=== PATIENT | male | born 1930 | race African-American/Black ===

== ENCOUNTER 2018-10-07 14:02 | Inpatient (IN) | payer OTHER ==
[~2018-10-07] VITALS: Ht 180.3 cm; Wt 91.0 kg
[2018-10-07 14:10] VITALS: Ht 180.3 cm; Wt 91.0 kg
--- NOTE | 2018-10-07 14:14 | ERD ---
ER Documentation Chief Complaint Chief Complaint low o2 saturation HPI The patient is a 88-year-old male, presenting to the ER because of low O2 saturation an hour prior to arrival and altered level of consciousness. 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 Past medical history: History of cardiac arrest, chronic respite failure, history of CHF, history of pressure ulcer, hypertension, dysphagia, bullous pemphigoid, gout, history of prostate cancer and bladder cancer. Past surgical history: Tracheostomy, G-tube ROS All systems reviewed and are negative except as per history of present illness. Medications Home Meds Reported Medications Levalbuterol Hcl* (Levalbuterol Hcl*) 0.63 Mg/3 Ml Vial.neb, 0.63 MG INHALATION QID PRN for WHEEZING AND SOB, VIAL 10/07/18 Acetaminophen* (Tylenol*) 325 Mg Tablet, 650 MG GTB Q6H PRN for MILD PAIN LEVEL 1-3, TAB FOR TEMP>100.5 10/07/18 Terazosin Hcl* (Terazosin Hcl*) 2 Mg Capsule, 2 MG GTB HS, CAP 10/07/18 Tamsulosin Hcl* (Tamsulosin Hcl*) 0.4 Mg Cap.er.24h, 0.4 MG GTB DAILY, CAP 10/07/18 Sennosides* (Senna Lax*) 8.6 Mg Tablet, 1 TAB GTB QHS, TAB 10/07/18 Hydrocodone/Acetaminophen ([place] 5-325 Tablet) 1 Each Tablet, 1 EACH GTB Q6H, TAB 10/07/18 [Nephro Vitamins ] No Conflict Check, 1 TAB GTB DAILY 10/07/18 Mirtazapine* (Mirtazapine*) 7.5 Mg Tablet, 7.5 MG GTB HS, TAB 10/07/18 Magnesium Hydroxide* (Milk Of Magnesia*) 400 Mg/5 Ml Oral.susp, 30 ML GTB Q24H for CONSTIPATION, ML 10/07/18 Metoprolol Tartrate* (Lopressor*) 25 Mg Tab, 25 MG GTB BID, #60 TAB HOLD FOR SBP<110 OR PULSE<60 10/07/18 Hydralazine Hcl* (Hydralazine Hcl*) 25 Mg Tab, 25 MG GTB Q8, #90 TAB HOLD FOR SBP<110 OR PULSE<60 10/07/18 Hydralazine Hcl* (Hydralazine Hcl*) 10 Mg Tablet, 10 MG GTB Q8 for FOR HTN FOR SBP<159, #90 TAB 10/07/18 Mineral Oil (Fleet Mineral Oil Enema) 133 Ml Enema, 133 ML RC Q 3 DAYS, ENEMA 10/07/18 Epoetin Hemant (Epogen) 10,000 Units/Ml Soln, 52220 UNITS SC Q MON,WED,FRI, VIAL 10/07/18 Bisacodyl* (Bisacodyl*) 10 Mg Supp, 10 MG FL Q24H for CONSTIPATION, SUPP 10/07/18 Docusate Sodium* (Colace*) 100 Mg Capsule, 100 MG GTB BID, #60 CAP 10/07/18 Allopurinol* (Allopurinol*) 300 Mg Tablet, 300 MG GTB DAILY, TAB 10/07/18 Alendronate Sodium* (Fosamax*) 70 Mg Tablet, 70 MG GTB Q SUN, #4 TAB 10/07/18 Acetaminophen* (Acetaminophen*) 325 Mg Tablet, 650 MG GTB DAILY PRN for PAIN AND OR ELEVATED TEMP, #30 TAB 30 MINS BEFORE TREATMENT. 10/07/18 Allergies Allergies: Uncoded Allergies: SHELLFISH (Allergy, Unknown, 10/07/18) Physical Exam Vitals Vital Signs Date Temp Pulse Resp B/P (MAP) Pulse Ox O2 O2 Flow FiO2 Time Delivery Rate 10/07/18 97.5 80 16 96/72 (80) Mechanical 10.0 17:59 Ventilator 10/07/18 81 17 12/75 (54) 100 Mechanical 16:59 Ventilator 10/07/18 82 15 100 100 16:49 10/07/18 87 16 103/70 100 Mechanical 15:35 (81) Ventilator Trach Collar 10/07/18 80 16 97/73 (81) 100 Mechanical 15:12 Ventilator 10/07/18 78 16 75/51 (59) 100 Mechanical 14:42 Ventilator 10/07/18 53 18 98 100 14:30 10/07/18 78 20 51/39 (43) 100 14:10 Physical Exam Const: Moderate acute distress. Head: Atraumatic. Eyes: Normal Conjunctiva. ENT: Normal External Ears, Nose and Mouth. Neck: Full range of motion. No meningismus. Tracheostomy Resp: Clear to auscultation anterior and laterally Cardio: Regular rate and rhythm. Abd: Soft, non distended, normal bowel sounds, non tender.GTube Skin: No petechiae or rashes. Back: No midline or flank tenderness. Ext: No cyanosis, or edema. Neur: Unable to perform due to his condition Psych: Unable to perform due to his condition Result Diagram: 10/07/18 1432 10/07/18 1432 Results 24 hrs Laboratory Tests Test 10/07/18 14:32 10/07/18 16:10 10/07/18 16:36 10/07/18 18:00 White Blood 9.2 10^3/ul Count Red Blood Count 2.72 10^6/ul Hemoglobin 7.2 g/dl Hematocrit 25.9 % Mean 95.2 fl Corpuscular Volume Mean 26.5 pg Corpuscular Hemoglobin Mean 27.8 g/dl Corpuscular Hemoglobin Conc ent Red Cell 17.4 % Distribution Width Platelet Count 114 10^3/UL Mean Platelet 13.0 fl Volume Immature 0.700 % Granulocytes % Neutrophils % 79.5 % Lymphocytes % 11.8 % Monocytes % 7.7 % Eosinophils % 0.1 % Basophils % 0.2 % Nucleated Red 3.3 /100WBC Blood Cells % Immature 0.060 10^3/ul Granulocytes # Neutrophils # 7.3 10^3/ul Lymphocytes # 1.1 10^3/ul Monocytes # 0.7 10^3/ul Eosinophils # 0.0 10^3/ul Basophils # 0.0 10^3/ul Nucleated Red 0.3 10^3/ul Blood Cells # Prothrombin 17.6 Sec Time Prothrombin 1.4 Time Ratio INR 1.44 International Normalized Rati o Activated 42.9 Sec Partial Thrombo plast Time Sodium Level 145 mmol/L Potassium Level 4.8 mmol/L Chloride Level 102 mmol/L Carbon Dioxide 32 mmol/L Level Anion Gap 11 Blood Urea 84 mg/dl Nitrogen Creatinine 1.46 mg/dl Est Glomerular mL/min Filtrat Rate mL/min Glucose Level 81 mg/dl Lactic Acid 6.6 mmol/L 3.6 mmol/L Level Calcium Level 9.5 mg/dl Total Bilirubin 0.2 mg/dl Direct 0.00 mg/dl Bilirubin Indirect 0.2 mg/dl Bilirubin Aspartate Amino 78 IU/L Transf (AST/SGO T) Alanine 30 IU/L Aminotransferas e (ALT/SGPT) Alkaline 137 IU/L Phosphatase Troponin I 0.251 ng/ml Total Protein 7.4 g/dl Albumin 3.2 g/dl Globulin 4.20 g/dl Albumin/Globuli 0.76 n Ratio Urine Color BHAVANA Urine Clarity SLIGHTLY CLOUDY Urine pH 5.0 Urine Specific 1.014 [place] Urine Ketones NEGATIVE mg/dL Urine Nitrite NEGATIVE mg/dL Urine Bilirubin NEGATIVE mg/dL Urine 1+ mg/dL Urobilinogen Urine Leukocyte 1+ Julissa/ul Esterase Urine 9 /HPF Microscopic RBC Urine 14 /HPF Microscopic WBC Urine Squamous FEW /HPF Epithelial Cell s Urine Bacteria FEW /HPF Urine Mucus FEW /HPF Urine Yeast MANY /HPF (Budding) Urine NEGATIVE mg/dL Hemoglobin Urine Glucose NEGATIVE mg/dL Urine Total 1+ mg/dl Protein Blood Gas Blood arterial Specimen Source Arterial Blood 10/07/2018 3:30: Date Drawn 05 PM Arterial Blood 7.340 pH (Temp corrected ) Arterial Blood 59.0 mmhg pCO2 (Temp correct) Arterial Blood 69.6 mmHG pO2 (Temp corrected ) Arterial Blood 31.1 mmol/L HCO3 Arterial Blood 4.5 mmol/L Base Excess Arterial Blood 91.8 mmHG Oxygen Saturati on Rosendo Test ACCEPTAB Arterial Blood Left Radial Gas Puncture Site Arterial 0.5 % Blood Carboxyhe moglobin Arterial Blood 0.4 % Methemoglobin Blood Gas A-a 584.4 mmHg O2 Differential Oxyhemoglobin 91.0 % Percent Blood Gas 37.0 C Temperature Blood Gas 12.0 Respiration Rate Blood Gas 18 Actual Respiration Rat e Blood Gas VENT - AC Modality FiO2 100.0 % Blood Gas Tidal 500.0 mL Volume Blood Gas High 5.0 cmH2O PEEP Setting Blood Gas DR Alesia WINKLER Critical Value Read Back Blood Gas T [facility] Notified Whom Blood Gas 10/07/2018 3:39: Notified Time 41 PM Current Medications Medications Dose Sig/Olga Start Time Status Last (Trade) Ordered Route PRN Stop Time Admin Dose Reason Admin 250 ml @ TITRATE IV 10/07/18 DC Norepinephrin 1.875 mls/ 15:00 e hr 10/07/18 15:00 250 ml @ TITRATE IV 10/07/18 10/07/18 Norepinephrin 1.875 mls/ 15:00 14:45 e hr Epinephrine 1 mg ONCE ONCE 10/07/18 DC 10/07/18 IV 16:00 16:00 10/07/18 16:18 Piperacillin 50 ml @ ONCE ONCE 10/07/18 DC 10/07/18 Sod/ 100 mls/hr IVPB 16:18 16:37 Tazobactam 10/07/18 16:47 Sod Vancomycin 250 ml @ ONCE ONCE 10/07/18 DC 10/07/18 HCl 125 mls/hr IVPB 16:00 17:35 10/07/18 17:59 Aspirin 162 mg ONCE ONCE 10/07/18 DC (Aspirin) GTB 18:30 10/07/18 18:31 IV Flush 3 ml PER 10/07/18 UNV (NS 3 ml) PROTOCOL IV 18:30 Ondansetron 4 mg Q6H PRN 10/07/18 UNV HCl (Zofran IV 18:30 Inj) NAUSEA/VOMITI NG 650 mg Q6H PRN 10/07/18 UNV Acetaminophen PO .PAIN 1-3 18:30 (Tylenol OR TEMP Tab) 1 tab Q6H PRN 10/07/18 UNV Acetaminophen PO .MOD PAIN 18:30 / 4-6 Hydrocodone Bitart ([place] (5/325)) Morphine 2 mg Q4H PRN 10/07/18 UNV Sulfate IV .SEVERE 18:30 (morphine) PAIN 7-10 Docusate 100 mg Q12H PRN 10/07/18 UNV Sodium PO 18:30 (Colace) .CONSTIPATION Magnesium 30 ml DAILY PRN 10/07/18 UNV Hydroxide PO 18:30 (Milk Of Mag) .CONSTIPATION Famotidine 20 mg Q12 IV 10/07/18 UNV (Pepcid Iv) 21:00 Sodium 1,000 ml @ [id number] IV 10/07/18 UNV Chloride 75 mls/hr 18:27 Lorazepam 0.5 mg Q6H PRN 10/07/18 UNV (Ativan) IV ANXIETY 18:30 Albuterol/ 3 ml Q4H RESP 10/07/18 UNV Ipratropium THERAPY PRN 18:30 (Duoneb) HHN SHORTNESS OF BREATH Piperacillin 100 ml @ Q6 IVPB 10/08/18 UNV Sod/ 200 mls/hr 00:00 Tazobactam Sod Vancomycin VANCOMYCIN NOTE XX 10/07/18 UNV HCl (Vanco PER PHARMACY 18:30 Iv Per Pharmacy) Hydralazine 10 mg Q6H PRN 10/07/18 UNV HCl IV ELEVATED 18:30 (Apresoline) BLOOD PRESSURE 1 tab Q5M PRN 10/07/18 UNV Nitroglycerin SL ANGINA 18:30 (Nitroglyceri n (Sl Tab) 0.4 Mg) 0.63 mg QID PRN 10/07/18 UNV Levalbuterol INH WHEEZING 18:30 (Xopenex AND SOB Neb) Magnesium 30 ml Q24H GTB 10/07/18 UNV Hydroxide 18:30 (Milk Of Mag) 250 ml @ TITRATE IV 10/07/18 UNV Norepinephrin 0.47 mls/hr 18:30 e 32 mg/Dextrose Procedures/MDM EKG: Read by emergency physician Rate/Rhythm: Normal Sinus Rhythm 78 beats/min QRS, ST, T-waves: No ST elevation, first-degree AV block, diffuse ST and T abnormality, RWA Impression: Abnormal EKG [place] [address] Radiology Main Line: [phone] DIAGNOSTIC IMAGING REPORT Patient: KT TILLEY : 1930 Age: 88 Sex: M MR #: [id number] DOS: 10/07/18 1415 Ordering MD: HETAL WINKLER MD Location: E/R Room/Bed: PROCEDURE: CT Brain without contrast. CLINICAL INDICATION: Altered mental status. TECHNIQUE: A CT of the brain without contrast was performed utilizing axial sections from the skull base through the vertex. One or more the following does reduction techniques were utilized: Automated exposure control, adjustment of the mA/ or kV according to patient's size, or use of iterative reconstruction te chnique. Total exam CTDIvol is 39 MGy and DLP is 634 mGy-cm. DICOM images are available. COMPARISON: None available. FINDINGS: The ventricles and sulci are mildly to moderately enlarged indicative of volume loss. There is no intracranial hemorrhage, mass effect or midline shift. No abnormal intra-axial or extra-axial fluid collections are seen. There is encephalomalacia in the right frontal lobe which likely represents sequela of prior infarct. Otherwise the remainder of the orbb/white matter differentiation is preserved. There are moderate foci of hypoattenuation in the periventricular, deep, and subcortical white matter, which are nonspecific in etiology but likely reflect chronic small vessel ischemic changes. There are moderate intracranial vascular calcifications consistent with atherosclerosis. The visualized paranasal sinuses are essentially clear. IMPRESSION: 1. No acute intracranial hemorrhage, transcortical infarction or mass effect. 2. Moderate intracranial atherosclerosis and chronic small vessel ischemic changes. 3. 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 4. Mild to moderate generalized cerebral volume loss. RPTAT: HH .Demetrio Shepherd MD, Date Time Electronically viewed and signed by .Demetrio Shepherd MD, MD on 10/07/2018 17:56 .N/ CC: HETAL WINKLER MD [phone] [place] [address] Radiology Main Line: [phone] DIAGNOSTIC IMAGING REPORT Patient: KT TILLEY : 1930 Age: 88 Sex: M MR #: [id number] DOS: 10/07/18 1415 Ordering MD: HETAL WINKLER MD Location: E/R Room/Bed: PROCEDURE: XR Chest. CLINICAL INDICATION: shortness of breath TECHNIQUE: Single portable view of the chest was obtained COMPARISON: None FINDINGS: There is mild cardiomegaly. The thoracic aorta is calcified. There is a tracheostomy tube in place. There is moderate pulmonary vascular congestion. There are bilateral perihilar and lower lobe increased interstitial changes. There are moderate bilateral pleural effusions, left greater than right. There is no pneumothorax. RPTAT: AA IMPRESSION: Mild cardiomegaly with moderate pulmonary vascular congestion. Moderate bilateral pleural effusions, left greater than right. .Akshat Crook MD, MD Date Time Electronically viewed and signed by .Akshat Crook MD, MD on 10/07/2018 15:41 .S/ CC: HETAL WINKLER MD [phone] MEDICAL MAKING DECISION: The patient is a 88-year-old male, presenting to the ER because of acute septic shock, acute encephalopathy, acute on chronic res piratory failure, acute kidney injury, acute troponin elevation, acute CHF, acute cystitis. He was treated with normosaline 30 mm/kg IV, vancomycin IV, Zosyn IV and Levophed drip for acute septic shock, aspirin 160 mg p.o. for acute troponin elevation for suspected acute STEMI. The differential diagnoses considered include but are not limited to aspiration pneumonia, pneumonitis, cystitis, pyelonephritis, PE, ACS, GI bleeding MDM: Patient's infectious symptoms have not stabilized and the patient is at risk of rapid decompensation. The patient will be admitted for careful hydration, antib iotic therapy, and infectious source control. SEVERE SEPSIS CRITERIA: Infectious source: uti End organ damage indicated by: [Lactate > 2.0 mmol/L Hypotension (SBP < 90 or >40 mmHG drop or MAP < 65) Acute Resp Failure (sat < 92% w/o oxygen) SEPSIS MANAGEMENT Time of recognition of septic shock: 4pm. 3 HOUR BUNDLE Blood cultures x 2 before broad-spectrum antibiotics: [Yes] 30 ml/kg NS bolus [Not Completed b/c he has concurrent acute CHF] Initial lactate []6.6 Repeat lactate Pending SEPTIC SHOCK ASSESSMENT: Yes lactic acid > 4.0 NA, Persistent hypotension (SBP < 90 or 40 mmHg drop, MAP < 65) despite 30 mL/kg IV fluid bolus. He does not receive IVF b/c concurrent acute chf VOLUME REASSESSMENT FOR SEPTIC SHOCK: Reevaluation Time: []2:42pm Temp []97.5, BP []75/51, HR []78, RR[]16, Pox []100% vent Heart [Regular rate & rhythm] Lungs [No crackles] Skin [Warm & dry] Cap Refill [Less than 2 seconds] Peripheral pulses [Radially present] PERSISTENT HYPOTENSION TREATMENT: Comfort care [No] Central line [R femoral vein Vasopressor started [Levophed I considered further perfusion assessment with CVP measurement, SCVO2, bedside ultrasound volume assessment, passive leg raise, trial of further fluid bolus. And proceeded with [30 ml/kg fluid bolus of NSS, broad spectrum antibiotics, and admission.] CRITICAL CARE Critical care time [35] minutes Emergent fluid management while maintaining close respiratory support. Provision of immediate and broad-spectrum antibiotic therapy. Simultaneous assessment for possible sources in order to direct targeted therapy. Consideration for invasive and chemical support to prevent cardiopulmonary collapse. Critical care time is independent of procedures performed. Central Line Placement by me: After the patient was consented and a time out was performed, appropriate hand hygiene was performed, the skin site was fully prepped and maximal sterile barrier technique was employed where the patient was sterilely draped, and the provider wore a mask and sterile gown and gloves. Anesthesia: 1% lidocaine locally Location: R femoral vein Device: Multiple lumen Technique: Seldinger technique. Secured with suture. Results: Venous return from all ports with easy saline flush. No complications. []Guide wire retrieved and disposed of. ED Ultrasound: Central line placed by me using concurrent ultrasound guidance done using sterile technique. Real time image archived in the medical record confirms vascular anatomy. Departure Diagnosis: Primary Impression: Acute and chronic respiratory failure Additional Impressions: Septic shock Encephalopathy acute Elevated troponin ALAN (acute kidney injury) UTI (urinary tract infection) CHF (congestive heart failure) Coagulopathy Anemia Thrombocytopenia Comments I discussed the patient with the [facility] physician Dr. William at 6pm, made aware of the lab, the treatment, the patient condition. He authorized admission to [facility], #[id number] I discussed the findings with the patient. I discussed the patient with the hospitalist Dr Montes at 6:20 pm who was made aware of the lab, the treatment, the patient condition. The patient is admitted to ICU Disclaimer: Inadvertent spelling and grammatical errors are likely due to EHR/dictation software use and do not reflect on the overall quality of patient care. Also, please note that the electronic time recorded on this note does not necessarily reflect the actual time of the patient encounter. HETAL WINKLER MD Oct 07, 2018 14:14
[2018-10-07] MEDS ORDERED: NORepinephrine 8MG/250 ML (PMX 250 ML IV SCH ×2 (15:00)
[2018-10-07] MEDS ORDERED: VANCOMYCIN 1 GM (PMX) 250 ML IVPB ONE (16:00)
[2018-10-07] MEDS ORDERED: EPINEPHrine 0.1 MG/ML SYG IV ONE (16:00)
[2018-10-07] MEDS ORDERED: ACET325T45 GTB (16:15)
[2018-10-07] MEDS ORDERED: ALEN70TA5 GTB (16:16)
[2018-10-07] MEDS ORDERED: ALLO300T2 GTB (16:16)
[2018-10-07] MEDS ORDERED: BISA10SU75 PR (16:17)
[2018-10-07] MEDS ORDERED: DOCU-144 GTB (16:17)
[2018-10-07] MEDS ORDERED: PIPER-TAZO 2.25 GM (PMX) 50 ML IVPB ONE (16:18)
[2018-10-07] MEDS ORDERED: EPO10ESRD SC (16:18)
[2018-10-07] MEDS ORDERED: MINE133E23 RC (16:19)
[2018-10-07] MEDS ORDERED: HYDR-3671 GTB (16:22)
[2018-10-07] MEDS ORDERED: HYDR-3670 GTB (16:22)
[2018-10-07] MEDS ORDERED: METO-448 GTB (16:23)
[2018-10-07] MEDS ORDERED: MAGN400O19 GTB (16:24)
[2018-10-07] MEDS ORDERED: MIRT7.5T8 GTB (16:24)
[2018-10-07] MEDS ORDERED: NEPHRO VITAMINS GTB (16:25)
[2018-10-07] MEDS ORDERED: HYDR-4011 GTB (16:26)
[2018-10-07] MEDS ORDERED: TAMS0.4C2 GTB (16:27)
[2018-10-07] MEDS ORDERED: SENN-120 GTB (16:27)
[2018-10-07] MEDS ORDERED: TERA2CAP3 GTB (16:28)
[2018-10-07] MEDS ORDERED: ACET325T33 GTB (16:30)
[2018-10-07] MEDS ORDERED: LEVA0.634 INHALATION (16:31)
[2018-10-07] MEDS ORDERED: VANCOMYCIN IV PER PHARMACY XX SCH (18:30)
[2018-10-07] MEDS ORDERED: DOCUSATE SODIUM 100 MG CAP PO PRN (18:30)
[2018-10-07] MEDS ORDERED: hydrALAzine 20 MG INJ IV PRN (18:30)
[2018-10-07] MEDS ORDERED: ASPIRIN 81 MG TAB GTB ONE (18:30)
[2018-10-07] MEDS ORDERED: morphine 2 MG INJ IV PRN (18:30)
[2018-10-07] MEDS ORDERED: ACETAMINOPHEN 325 MG TAB PO PRN (18:30)
[2018-10-07] MEDS ORDERED: ONDANSETRON 4 MG INJ IV PRN (18:30)
[2018-10-07] MEDS ORDERED: LEVALBUTEROL (NEB) 0.63 MG/3 ML AMP INH PRN (18:30)
[2018-10-07] MEDS ORDERED: NORepinephrine 32 MG in DEXTROSE 5% 218 ML IV SCH (18:30)
[2018-10-07] MEDS ORDERED: MAGNESIUM HYDROXIDE 30ML CUP PO PRN (18:30)
[2018-10-07] MEDS ORDERED: NACL 0.9% 3 ML SYG IV SCH (18:30)
[2018-10-07] MEDS ORDERED: NITROGLYCERIN (SL) 0.4 MG TAB SL PRN (18:30)
[2018-10-07] MEDS ORDERED: LORAZEPAM 2 MG INJ IV PRN (18:30)
[2018-10-07] MEDS ORDERED: HYDROCODONE/APAP (5/325) TAB PO PRN (18:30)
[2018-10-07] MEDS ORDERED: ALBUTEROL/IPRATROPIUM (NEB) 3 ML AMP HHN PRN (18:30)
--- NOTE | 2018-10-07 20:06 | HP ---
DATE OF ADMISSION: 10/07/2018 IDENTIFICATION: This is an 88-year-old. CHIEF COMPLAINT: Brought in from SNF with altered level of consciousness, hypotension, hypoxia. HISTORY OF PRESENT ILLNESS: An 88-year-old male with past medical history based on records of prior cardiac arrest, chronic respiratory failure with tracheostomy placement in the past, CHF, pressure ul cer, hypertension, dysphagia, bullous pemphigoid, gout, prostate cancer, bladder cancer, history of G -tube placement. Most of the information is obtained from the ER documentation as the patient is polo ble to provide full HPI at this time. When the patient arrived, he was found to be hypoxic and had a ltered level of consciousness. The symptoms apparently occurred about 1 hour prior to arrival. When he arrived, he was found hemoglobin of 7.2. His lactic acid was elevated at 6.6. He also had eleva nancy troponin of 0.251, also creatinine of 1.46 elevation and he was hypotensive and signs of septic s hock likely secondary to UTI as his UA was positive as well for infection and he also has moderate pu lmonary vascular congestion, cannot rule out upper respiratory infection as well and patient was give n broad spectrum antibiotics and was started on Levophed in the ER that he is presently on. Full rev iew of systems cannot be obtained at this time. PAST MEDICAL HISTORY: As above. ALLERGIES: SHELLFISH. HOME MEDICATIONS: 1. Levalbuterol 0.63 mg inhaled q.i.d. p.r.n. 2. Flomax 0.4 mg daily. 3. Epogen 10,000 units 3 times a week. 4. Hydralazine 10 mg q.8 hours. 5. Lopressor 25 mg b.i.d. 6. Terazosin 2 mg at bedtime. 7. Tylenol 650 daily p.r.n. 8. [place] 5/325 q.6 hours. 9. Mirtazapine 7.5 mg at bedtime. 10. Bisacodyl 10 mg per rectal q.24 hours. 11. Colace 100 mg b.i.d. 12. Milk of Magnesia 30 mL q.24 hours. 13. Fleet enema every 3 days. 14. Senna 1 tab at bedtime. 15. Fosamax 70 mg weekly. 16. Allopurinol 300 mg daily. 17. Nephro-Marcia 1 tab daily. PAST SURGICAL HISTORY: He has a tracheostomy and G-tube placed in the past. Other past surgical his tory is unknown. SOCIAL HISTORY: Unknown at this time. FAMILY HISTORY: Noncontributory. PHYSICAL EXAMINATION: VITAL SIGNS: Today, T-max 97.5, pulse 53 to 80, respirations 15 to 20, blood pressure 51 to 103 syst olic over 39 to 70 diastolic, satting at 100% O2 sat on mechanical ventilation, FiO2 set at 100. GENERAL: The patient lying in bed, altered, tracheostomy in place, on pressor support. HEENT: Unable to fully assess at this time. NECK: Supple. No thyromegaly. Tracheostomy in place. No signs of any bleeding. LUNGS: Slightly decreased breath sounds bilaterally. CARDIOVASCULAR: S1, S2 heard. No rubs or gallops. ABDOMEN: Soft, nontender, nondistended. G-tube in place. No rebound or guarding. MUSCULOSKELETAL: No lower extremity edema bilaterally. NEUROLOGIC: Unable to perform due to patient's lethargy at this time. LABORATORIES: WBC 9.2, hemoglobin 7.2, hematocrit 25.9, platelets 114. Sodium 145, potassium 4.8, c hloride 102, CO2 of 32, BUN 84, creatinine 1.46. INR 1.44, PTT 42.9. The lactic acid is 6.6. Tropo alayna is 0.251. The LFTs are essentially normal except AST is 78, alkaline phosphatase is 137. The re st of LFTs are normal. UA shows 1+ leukocyte esterase, positive 9 RBCs, 14 WBCs, few bacteria, negat lorena nitrites. ABG initially shows pH of 7.34, pCO2 of 59, PaO2 of 69 and bicarbonate of 31. DIAGNOSTIC DATA: We mentioned the chest x-ray finding: Mild cardiomegaly, moderate pulmonary vascul ar congestion, moderate bilateral pleural effusions, left greater than right. Head CT showed no acut e intracranial hemorrhages, infarctions or mass effect, moderate intracranial atherosclerosis and chr onic small vessel ischemic changes, encephalomalacia in the right frontal lobe, likely represent sequ elae of prior infarct, mild to moderate generalized cerebral volume loss. ASSESSMENT AND PLAN: An 88-year-old male brought in with hypoxia, altered mental status with signs o f septic shock, likely secondary to upper respiratory infection and urinary tract infection, lactic a cidosis. 1. Septic shock again likely secondary to urinary tract infection and possible respiratory infection . Admit the patient. Put on pressor support, broad spectrum antibiotics. Follow up final culture r esults. Tylenol p.r.n. pain and fevers. Trend his lactic acid. Consider ID consult. 2. Respiratory distress again with hypoxia. He does have history of tracheostomy placement in the p ast, so we will get pulmonary consult for vent management. Continue broad spectrum antibiotics, bhavna t possible upper respiratory infection. Keep the O2 sats greater than 92%. DuoNeb p.r.n. Get PT an d OT consults as well as speech therapy consult. 3. Elevated troponins again unclear if this is non ST-elevation myocardial infarction versus demand ischemia. He does have elevated creatinine as well, so we will continue to trend his troponins. Con [place] driver cardiology consult. Hold off on anticoagulation at this time given his anemia. 4. Renal insufficiency, unknown baseline, but his BUN is elevated at 84, creatinine is 1.46. Given his elevated lactic acid, we will put him on IV fluids for now and consider renal consult as well. 5. History of prior cardiac arrest. Continue to monitor for now. Follow cardiology recommendations . 6. History of pressure ulcer. We will get a wound care nurse consult. 7. History of gout. Continue to monitor for now. 8. History of dysphagia. Again, we will get a speech therapy evaluation. Continue G-tube feeds as tolerated. 9. History of congestive heart failure. Consider checking echocardiogram. Get a cardiology consult . 10. History of prostate and bladder cancer. Monitor for now. 11. Gastrointestinal prophylaxis. H2 rachael. 12. Deep venous thrombosis prophylaxis. SCDs for now. Hold off on anticoagulants given his anemia. Check stool occult test as well. Dictated By: ANGEL BEVERLY/JAYNE Conf#: [id number] DID#: [id number] CC: RACH NICHOLAS MD; HETAL WINKLER MD;*End*
[2018-10-07] MEDS: SOD CHLORIDE 0.45% 1,000 ML IV SCH (20:15)
[2018-10-07] MEDS: MAGNESIUM HYDROXIDE 30ML CUP GTB SCH (21:54)
[2018-10-07] MEDS: FAMOTIDINE 20 MG INJ IV SCH (21:54)
[2018-10-07] MEDS ORDERED: VANCOMYCIN 750 MG (PMX) 250 ML IVPB ONE (23:00)
[2018-10-08] VITALS (76 sets, daily range): BP systolic 78–146; BP diastolic 44–112; PULSE 76–83; RESP 12–26
[2018-10-08] MEDS: PIPER-TAZO 3.375 GM IV (PMX) 100 ML IVPB SCH ×5 (01:48→23:34)
--- NOTE | 2018-10-08 04:23 | EN ---
Date/Time of Note Date/Time of Note DATE: 10/08/18 TIME: 04:23 ER Progress Note Observation Note: Time: 4 hours Family Hx: No Hypertension Evaluation: Multiple exams showed improving symptoms and no evidence of decompensation GEOFFREY UMAÑA Oct 08, 2018 04:23
[2018-10-08] MEDS: SOD CHLORIDE 0.45% 1,000 ML IV SCH ×2 (08:10→10:15)
--- NOTE | 2018-10-08 08:11 | CONS ---
Assessment/Plan Assessment/Plan Assessment/Plan Renal Consult dictated 1- ARF sec to hypotension and sepsis with baseline Scr 0.93 (09/26/18) during the time he was admitted for urosepsis, renal ultz ordered, Joselyn pending re prerenal component. at [facility]. 2. He is vol expanded with abnl cxr and mod sacral edema and reasonable albumin, now on pressors, will slow IV, and diurese once BP stable. 3. Anemia, stool ob ordered, iron studies ordered and epogen started. Consultation Date/Type/Reason Admit Date/Time Oct 07, 2018 at 18:23 Type of Consult Nephrology Date/Time of Note DATE: 10/08/18 TIME: 08:08 Past Medical History Home Meds Reported Medications Levalbuterol Hcl* (Levalbuterol Hcl*) 0.63 Mg/3 Ml Vial.neb, 0.63 MG INHALATION QID PRN for WHEEZING AND SOB, VIAL 10/07/18 Acetaminophen* (Tylenol*) 325 Mg Tablet, 650 MG GTB Q6H PRN for MILD PAIN LEVEL 1-3, TAB FOR TEMP>100.5 10/07/18 Terazosin Hcl* (Terazosin Hcl*) 2 Mg Capsule, 2 MG GTB HS, CAP 10/07/18 Tamsulosin Hcl* (Tamsulosin Hcl*) 0.4 Mg Cap.er.24h, 0.4 MG GTB DAILY, CAP 10/07/18 Sennosides* (Senna Lax*) 8.6 Mg Tablet, 1 TAB GTB QHS, TAB 10/07/18 Hydrocodone/Acetaminophen ([place] 5-325 Tablet) 1 Each Tablet, 1 EACH GTB Q6H, TAB 10/07/18 [Nephro Vitamins ] No Conflict Check, 1 TAB GTB DAILY 10/07/18 Mirtazapine* (Mirtazapine*) 7.5 Mg Tablet, 7.5 MG GTB HS, TAB 10/07/18 Magnesium Hydroxide* (Milk Of Magnesia*) 400 Mg/5 Ml Oral.susp, 30 ML GTB Q24H for CONSTIPATION, ML 10/07/18 Metoprolol Tartrate* (Lopressor*) 25 Mg Tab, 25 MG GTB BID, #60 TAB HOLD FOR SBP<110 OR PULSE<60 10/07/18 Hydralazine Hcl* (Hydralazine Hcl*) 25 Mg Tab, 25 MG GTB Q8, #90 TAB HOLD FOR SBP<110 OR PULSE<60 10/07/18 Hydralazine Hcl* (Hydralazine Hcl*) 10 Mg Tablet, 10 MG GTB Q8 for FOR HTN FOR SBP<159, #90 TAB 10/07/18 Mineral Oil (Fleet Mineral Oil Enema) 133 Ml Enema, 133 ML RC Q 3 DAYS, ENEMA 10/07/18 Epoetin Hemant (Epogen) 10,000 Units/Ml Soln, 24881 UNITS SC Q MON,WED,FRI, VIAL 10/07/18 Bisacodyl* (Bisacodyl*) 10 Mg Supp, 10 MG TX Q24H for CONSTIPATION, SUPP 10/07/18 Docusate Sodium* (Colace*) 100 Mg Capsule, 100 MG GTB BID, #60 CAP 10/07/18 Allopurinol* (Allopurinol*) 300 Mg Tablet, 300 MG GTB DAILY, TAB 10/07/18 Alendronate Sodium* (Fosamax*) 70 Mg Tablet, 70 MG GTB Q SUN, #4 TAB 10/07/18 Acetaminophen* (Acetaminophen*) 325 Mg Tablet, 650 MG GTB DAILY PRN for PAIN AND OR ELEVATED TEMP, #30 TAB 30 MINS BEFORE TREATMENT. 10/07/18 Medications Current Medications Norepinephrine 250 ml @ 1.875 mls/ hr TITRATE IV Last administered on 10/07/18at 14:45; Admin Dose 37.5 MLS/HR; Start 10/07/18 at 15:00 IV Flush (NS 3 ml) 3 ml PER PROTOCOL IV ; Start 10/07/18 at 18:30 Ondansetron HCl (Zofran Inj) 4 mg Q6H PRN IV NAUSEA/VOMITING; Start 10/07/18 at 18:30 Acetaminophen (Tylenol Tab) 650 mg Q6H PRN PO .PAIN 1-3 OR TEMP; Start 10/07/18 at 18:30 Acetaminophen/ Hydrocodone Bitart ([place] (5/325)) 1 tab Q6H PRN PO .MOD PAIN 4- 6; Start 10/07/18 at 18:30 Morphine Sulfate (morphine) 2 mg Q4H PRN IV .SEVERE PAIN 7-10; Start 10/07/18 at 18:30 Docusate Sodium (Colace) 100 mg Q12H PRN PO .CONSTIPATION; Start 10/07/18 at 18:30 Magnesium Hydroxide (Milk Of Mag) 30 ml DAILY PRN PO .CONSTIPATION; Start 10/07/18 at 18:30 Famotidine (Pepcid Iv) 20 mg HS IV Last administered on 10/07/18at 21:54; Admin Dose 20 MG; Start 10/07/18 at 21:00 Sodium Chloride 1,000 ml @ 50 mls/hr Q20H IV Last administered on 10/07/18at 20:15; Admin Dose 75 MLS/HR; Start 10/07/18 at 18:27 Lorazepam (Ativan) 0.5 mg Q6H PRN IV ANXIETY; Start 10/07/18 at 18:30 Piperacillin Sod/ Tazobactam Sod 100 ml @ 200 mls/hr Q6 IVPB Last administered on 10/08/18at 08:07; Admin Dose 200 MLS/HR; Start 10/08/18 at 00:00 Vancomycin HCl (Vanco Iv Per Pharmacy) VANCOMYCIN PER PHARMACY NOTE XX ; Start 10/07/18 at 18:30 Hydralazine HCl (Apresoline) 10 mg Q6H PRN IV ELEVATED BLOOD PRESSURE; Start 10/07/18 at 18:30 Nitroglycerin (Nitroglycerin (Sl Tab) 0.4 Mg) 1 tab Q5M PRN SL ANGINA; Start 10/07/18 at 18:30 Levalbuterol (Xopenex Neb) 0.63 mg QID RESP THERAPY PRN INH WHEEZING AND SOB; Start 10/07/18 at 18:30 Magnesium Hydroxide (Milk Of Mag) 30 ml Q24H GTB Last administered on 10/07/18at 21:54; Admin Dose 30 ML; Start 10/07/18 at 18:30 Norepinephrine 32 mg/Dextrose 250 ml @ 0.47 mls/hr TITRATE IV Last administered on 10/07/18at 21:19; Admin Dose 9.38 MLS/HR; Start 10/07/18 at 18:30 Vancomycin HCl 1.25 gm/Sodium Chloride 250 ml @ 83.333 mls/ hr Q24H IVPB ; Sta rt 10/08/18 at 18:00 Allergies: Uncoded Allergies: SHELLFISH (Allergy, Unknown, 10/07/18) Social History Smoking Status: Never smoker Exam/Review of Systems Vital Signs Vitals Vital Signs Date Temp Pulse Resp B/P (MAP) Pulse Ox O2 O2 Flow FiO2 Time Delivery Rate 10/08/18 79 26 110/75 100 Mechanical 07:30 (87) Ventilator 10/08/18 98.6 07:00 10/08/18 60 05:21 10/07/18 10.0 17:59 Intake and Output 10/07/18 10/07/18 10/08/18 1515:00 23:00 07:00 IntakeIntake Total 0 ml OutputOutput Total 585 ml BalanceBalance -585 ml Labs Result Diagram: 10/08/18 0443 10/08/18 0443 Results 24hrs Laboratory Tests Test 10/07/18 14:32 10/07/18 16:10 10/07/18 16:36 10/07/18 18:00 White Blood 9.2 Count Red Blood Count 2.72 L Hemoglobin 7.2 L Hematocrit 25.9 L Mean Corpuscular 95.2 Volume Mean Corpuscular 26.5 L Hemoglobin Mean Corpuscular 27.8 L Hemoglobin Trini nt Red Cell 17.4 H Distribution Width Platelet Count 114 L Mean Platelet 13.0 H Volume Immature 0.700 H Granulocytes % Neutrophils % 79.5 H Lymphocytes % 11.8 L Monocytes % 7.7 Eosinophils % 0.1 Basophils % 0.2 Nucleated Red 3.3 H Blood Cells % Immature 0.060 H Granulocytes # Neutrophils # 7.3 Lymphocytes # 1.1 Monocytes # 0.7 Eosinophils # 0.0 Basophils # 0.0 Nucleated Red 0.3 H Blood Cells # Prothrombin Time 17.6 H Prothrombin Time 1.4 Ratio INR 1.44 International Normalized Ratio Activated 42.9 H Partial Thrombop last Time Sodium Level 145 H Potassium Level 4.8 Chloride Level 102 Carbon Dioxide 32 H Level Anion Gap 11 Blood Urea 84 H Nitrogen Creatinine 1.46 H Est Glomerular Filtrat Rate mL/min Glucose Level 81 Hemoglobin A1c 5.6 Lactic Acid 6.6 *H 3.6 *H Level Calcium Level 9.5 Total Bilirubin 0.2 Direct Bilirubin 0.00 Indirect 0.2 Bilirubin Aspartate Amino 78 H Transf (AST/SGOT ) Alanine 30 Aminotransferase (ALT/SGPT) Alkaline 137 H Phosphatase Troponin I 0.251 *H Total Protein 7.4 Albumin 3.2 L Globulin 4.20 H Albumin/Globulin 0.76 Ratio Free Thyroxine 1.19 Urine Color BH[place]NA Urine Clarity SLIGHTLY CLOUDY A Urine pH 5.0 Urine Specific 1.014 [place] Urine Ketones NEGATIVE Urine Nitrite NEGATIVE Urine Bilirubin NEGATIVE Urine 1+ H Urobilinogen Urine Leukocyte 1+ H Esterase Urine 9 H Microscopic RBC Urine 14 H Microscopic WBC Urine Squamous FEW Epithelial Cells Urine Bacteria FEW A Urine Mucus FEW A Urine Yeast MANY A (Budding) Urine Hemoglobin NEGATIVE Urine Glucose NEGATIVE Urine Total 1+ H Protein Blood Gas Blood arterial Specimen Source Arterial Blood 10/07/2018 3:30: Date Drawn 00 PM Arterial Blood 7.340 L pH (Temp corrected) Arterial Blood 59.0 H pCO2 (Temp correct) Arterial Blood 69.6 L pO2 (Temp corrected) Arterial Blood 31.1 H HCO3 Arterial Blood 4.5 H Base Excess Arterial Blood 91.8 L Oxygen Saturatio n Rosendo Test ACCEPTAB Arterial Blood Left Radial Gas Puncture Site Arterial 0.5 Blood Carboxyhem oglobin Arterial Blood 0.4 Methemoglobin Blood Gas A-a O2 584.4 H Differential Oxyhemoglobin 91.0 L Percent Blood Gas 37.0 Temperature Blood Gas 12.0 Respiration Rate Blood Gas Actual 18 Respiration Rate Blood Gas VENT - AC Modality FiO2 100.0 Blood Gas Tidal 500.0 Volume Blood Gas High 5.0 PEEP Setting Blood Gas DR Alesia WINKLER Critical Value Read Back Blood Gas T [facility] Notified Whom Blood Gas 10/07/2018 3:39: Notified Time 00 PM Test 10/07/18 19:32 10/08/18 02:35 10/08/18 04:43 Hemoglobin 7.6 L 7.6 L 7.7 L Hematocrit 26.7 L 26.3 L 26.4 L Lactic Acid 2.5 *H 1.7 Level Troponin I 3.520 *H 11.200 *H White Blood 14.4 #H Count Red Blood Count 2.87 L Mean Corpuscular 92.0 Volume Mean Corpuscular 26.8 L Hemoglobin Mean Corpuscular 29.2 L Hemoglobin Trini nt Red Cell 16.9 H Distribution Width Platelet Count 124 L Mean Platelet 13.4 H Volume Immature 0.500 H Granulocytes % Neutrophils % Segmented 47 Neutrophils % (Manual) Band Neutrophils 7 H % (Manual) Lymphocytes % Lymphocytes % 33 (Manual) Monocytes % Monocytes % 12 H (Manual) Eosinophils % Basophils % Myelocytes % 1 H (Manual) Nucleated Red 3 H Blood Cells % Immature 0.070 H Granulocytes # Neutrophils # Neutrophils # 6.9 (Manual) Band Neutrophils 1.0 H # Lymphocytes 4.7 H (Manual) Lymphocytes # Monocytes # Monocytes # 1.7 H (Manual) Eosinophils # Basophils # Myelocytes # 0.1 H Nucleated Red Blood Cells # Platelet DECREASED Estimate Polychromasia 3+ Hypochromasia 1+ Anisocytosis 1+ Macrocytosis 1+ Ovalocytes 1+ Stomatocytes 1+ Sodium Level 143 Potassium Level 4.7 Chloride Level 103 Carbon Dioxide 33 H Level Anion Gap 7 Blood Urea 97 H Nitrogen Creatinine 1.74 H Est Glomerular Filtrat Rate mL/min Glucose Level 110 Hemoglobin A1c 5.5 Calcium Level 8.9 Phosphorus Level 3.9 Magnesium Level 2.8 H Triglycerides 42 Level Cholesterol 81 L Level LDL Cholesterol, 24 Calculated HDL Cholesterol 49 Cholesterol/HDL 1.6 Ratio Thyroid 1.770 Stimulating Hormone (TSH) Medications Medications Current Medications Norepinephrine 250 ml @ 1.875 mls/ hr TITRATE IV Last administered on 10/07/18at 14:45; Admin Dose 37.5 MLS/HR; Start 10/07/18 at 15:00 IV Flush (NS 3 ml) 3 ml PER PROTOCOL IV ; Start 10/07/18 at 18:30 Ondansetron HCl (Zofran Inj) 4 mg Q6H PRN IV NAUSEA/VOMITING; Start 10/07/18 at 18:30 Acetaminophen (Tylenol Tab) 650 mg Q6H PRN PO .PAIN 1-3 OR TEMP; Start 10/07/18 at 18:30 Acetaminophen/ Hydrocodone Bitart ([place] (5/325)) 1 tab Q6H PRN PO .MOD PAIN 4- 6; Start 10/07/18 at 18:30 Morphine Sulfate (morphine) 2 mg Q4H PRN IV .SEVERE PAIN 7-10; Start 10/07/18 at 18:30 Docusate Sodium (Colace) 100 mg Q12H PRN PO .CONSTIPATION; Start 10/07/18 at 18:30 Magnesium Hydroxide (Milk Of Mag) 30 ml DAILY PRN PO .CONSTIPATION; Start 10/07/18 at 18:30 Famotidine (Pepcid Iv) 20 mg HS IV Last administered on 10/07/18at 21:54; Admin Dose 20 MG; Start 10/07/18 at 21:00 Sodium Chloride 1,000 ml @ 50 mls/hr Q20H IV Last administered on 10/07/18at 20:15; Admin Dose 75 MLS/HR; Start 10/07/18 at 18:27 Lorazepam (Ativan) 0.5 mg Q6H PRN IV ANXIETY; Start 10/07/18 at 18:30 Piperacillin Sod/ Tazobactam Sod 100 ml @ 200 mls/hr Q6 IVPB Last administered on 10/08/18at 08:07; Admin Dose 200 MLS/HR; Start 10/08/18 at 00:00 Vancomycin HCl (Vanco Iv Per Pharmacy) VANCOMYCIN PER PHARMACY NOTE XX ; Start 10/07/18 at 18:30 Hydralazine HCl (Apresoline) 10 mg Q6H PRN IV ELEVATED BLOOD PRESSURE; Start 10/07/18 at 18:30 Nitroglycerin (Nitroglycerin (Sl Tab) 0.4 Mg) 1 tab Q5M PRN SL ANGINA; Start 10/07/18 at 18:30 Levalbuterol (Xopenex Neb) 0.63 mg QID RESP THERAPY PRN INH WHEEZING AND SOB; Start 10/07/18 at 18:30 Magnesium Hydroxide (Milk Of Mag) 30 ml Q24H GTB Last administered on 10/07/18at 21:54; Admin Dose 30 ML; Start 10/07/18 at 18:30 Norepinephrine 32 mg/Dextrose 250 ml @ 0.47 mls/hr TITRATE IV Last adminis tered on 10/07/18at 21:19; Admin Dose 9.38 MLS/HR; Start 10/07/18 at 18:30 Vancomycin HCl 1.25 gm/Sodium Chloride 250 ml @ 83.333 mls/ hr Q24H IVPB ; Start 10/08/18 at 18:00 ANIBAL SHANNON MD Oct 08, 2018 08:11
--- NOTE | 2018-10-08 08:57 | CONS ---
DATE OF ADMISSION: 10/07/2018 DATE OF CONSULTATION: 10/08/[address] Palma: Thank you very much for allowing me to evaluate this 88-year-old male admitted to the hospital yester day with evidence of sepsis and renal insufficiency. HISTORICAL EVENTS: As you well know, this patient had been admitted to an outside facility ([facility]) in June of this year when he had evidence of urosepsis and respiratory failure. With respect to his renal function, his baseline serum creatinine after my review of his records re vealed a creatinine of 0.93 on 09/26/2018. His comorbid conditions you outlined quite well including antecedent cardiac arrest, respiratory failure, history of congestive heart failure, hypertension, history of bullous pemphigoid, gout, both prostate and bladder cancer. He was admitted here with troy dence of hypoxia and altered level of consciousness with profound hypotension. He cannot provide you with any additional historical events. MEDICATIONS: Prior to admission included; 1. Levalbuterol inhaled. 2. Flomax 0.4. 3. Epogen 3 times per week. 4. Hydralazine 10 mg q.8h. 5. Lopressor 25 b.i.d. 6. Terazosin 2 mg at bedtime. 7. Mirtazapine 7.5 at night. 8. [place] p.r.n. 9. Colace. 10. Senna. 11. Fosamax. 12. Allopurinol 300 mg per day. 13. Nephro-Marcia. FAMILY AND SOCIAL HISTORY: To be reviewed later. PHYSICAL EXAMINATION: VITAL SIGNS: Blood pressure 103/70, pulse 80, respirations were 16. He temperature was 98.5. NECK: Tracheostomy was in place. There was no JVD. LUNGS: Reduced breath sounds. HEART: Rhythm regular, I/ systolic murmur. No third or fourth sound. ABDOMEN: Slight distention. No organomegaly or masses. EXTREMITIES: No edema. Sacrum 2 to 3+ edema. NEUROLOGIC: No gross lateralizing motor weakness with some extremity movement on deep gentle palpati on. LABORATORY AND DIAGNOSTIC STUDIES: On admission, hematocrit 25.9, this morning 26.4, white count 920 0 on admission, 14,400 on the , platelets 114 on admission, 124,000 today. Urine, red cells and white cells were present, few bacteria. Chemistries on admission, electrolytes were normal. BUN 84, creatinine 1.46, AST and ALT 78 and 30 respectively. Albumin was 3.2, calcium 9.5 with followup lab s today, creatinine 1.74. Electrolytes were normal, magnesium 2.8, phosphorus 3.9. IMAGING STUDIES: CT of the brain intracranial atherosclerosis and encephalomalacia of the right lobe and moderate volume loss with a chest x-ray revealing mild cardiomegaly with moderate pulmonary jm estion, bilateral pleural effusions, left greater than right. IMPRESSION AND PLAN: 1. Acute renal failure secondary to sepsis and hypotension, prerenal component may be related to kishor oing hypotension and a urine sodium should sort that out, obstruction seems likely but a renal ultras ound will be obtained to confirm. 2. Clearly volume overloaded given a reasonable albumin and moderate sacral edema and chest x-ray fi ndings noted above. We will begin diuresis once blood pressure stabilizes. 3. Anemia. Stool OB has been ordered. Iron studies will be obtained and Epogen continued. We will follow with you. Dictated By: ANIBAL QUIROGA/NTS Conf#: [id number] DID#: [id number] CC: RACH NICHOLAS MD; ANGEL PALMA;*[facility]*
--- NOTE | 2018-10-08 09:22 | CONS ---
Assessment/Plan Assessment/Plan Hospital Course (Demo Recall) Non-ST elevation myocardial infarction Shock probably septic Hypoxemic respiratory failure with tracheostomy vent dependent Reported history of congestive heart failure Reported history of possible cardiopulmonary arrest Severe anemia Encephalopathy has a letter of consciousness Dysphagia status post PEG placement History of bladder cancer Acute renal failure Recommendations: I will start the patient on aspirin daily. Will consider Plavix also if no signs of active bleeding is noted I will hold off on full anticoagulation right now given his severe anemia Continue with the Levophed as needed to titrate blood pressure. We will try to titrate off if blood pressure remains stable Vent support will be managed as per pulmonary Start the patient on statins Beta-rachael to be started once blood pressure is stable Follow-up with renal recommendations For now we will hold off on any aggressive procedures such as coronary angiogram given his multiple comorbidities Echocardiogram has been ordered we will reviewed once is done Continue with ICU care More than 40 minutes of critical care time was for management treatment of this critically ill patient excluding any procedures Thank you for his referral. We will continue to follow along with you KAILEE GILLIAM MD [facility] Consultation Date/Type/Reason Admit Date/Time Oct 07, 2018 at 18:23 Date of Consultation: Oct 08, 2018 Type of Consult Cardiology Reason for Consultation + trop Requesting Provider: ANGEL PALMA Date/Time of Note DATE: 10/08/18 TIME: 09:14 Hx of Present Illness I Interventional cardiology consultation note Chief complaint: Altered level of consciousness Reason for consult: Abnormal troponin History of present illness: Thank you for this referral. History was obtained from the patient chart review of the old chart discussion physician staff patient himself is not able to provide any history to me. Discussed with the staff as well This is a 88-year-old gentleman with multiple complicated medical history who was brought in from subacute/long-term for has a letter of consciousness. Patient is nonverbal unable to provide any history to me. based on records in the chart patient has had a history of prior cardiac arrest, chronic respiratory failure with tracheostomy placement in the past, CHF, pressure ulcer, hypertension, dysphagia, bullous pemphigoid, gout, prostate cancer, bladder cancer, history of G-tube placement. . When the patient arrived, he was found to be hypoxic and had altered level of consciousness. The symptoms apparently occurred about 1 hour prior to arrival. When he arrived, he was found hemoglobin of 7.2. His lactic acid was elevated at 6.6. He also had elevated troponin of 0.251 which has increased significantly since admission, Patient has also been hypotensive and in shock and on Levophed drip PAST MEDICAL HISTORY: As above. ALLERGIES: SHELLFISH. HOME MEDICATIONS: 1. Levalbuterol 0.63 mg inhaled q.i.d. p.r.n. 2. Flomax 0.4 mg daily. 3. Epogen 10,000 units 3 times a week. 4. Hydralazine 10 mg q.8 hours. 5. Lopressor 25 mg b.i.d. 6. Terazosin 2 mg at bedtime. 7. Tylenol 650 daily p.r.n. 8. Usk 5/325 q.6 hours. 9. Mirtazapine 7.5 mg at bedtime. 10. Bisacodyl 10 mg per rectal q.24 hours. 11. Colace 100 mg b.i.d. 12. Milk of Magnesia 30 mL q.24 hours. 13. Fleet enema every 3 days. 14. Senna 1 tab at bedtime. 15. Fosamax 70 mg weekly. 16. Allopurinol 300 mg daily. 17. Nephro-Marcia 1 tab daily. PAST SURGICAL HISTORY: He has a tracheostomy and G-tube placed in the past. Other past surgical history is unknown. SOCIAL HISTORY: Unknown at this time. Patient lives in a long-term FAMILY HISTORY: No reported history of early coronary artery disease but unable to obtain accurately Review of system: Able to obtain except for above-mentioned Past Medical History Home Meds Reported Medications Levalbuterol Hcl* (Levalbuterol Hcl*) 0.63 Mg/3 Ml Vial.neb, 0.63 MG INHALATION QID PRN for WHEEZING AND SOB, VIAL 10/07/18 Acetaminophen* (Tylenol*) 325 Mg Tablet, 650 MG GTB Q6H PRN for MILD PAIN LEVEL 1-3, TAB FOR TEMP>100.5 10/07/18 Terazosin Hcl* (Terazosin Hcl*) 2 Mg Capsule, 2 MG GTB HS, CAP 10/07/18 Tamsulosin Hcl* (Tamsulosin Hcl*) 0.4 Mg Cap.er.24h, 0.4 MG GTB DAILY, CAP 10/07/18 Sennosides* (Senna Lax*) 8.6 Mg Tablet, 1 TAB GTB QHS, TAB 10/07/18 Hydrocodone/Acetaminophen (Usk 5-325 Tablet) 1 Each Tablet, 1 EACH GTB Q6H, TAB 10/07/18 [Nephro Vitamins ] No Conflict Check, 1 TAB GTB DAILY 10/07/18 Mirtazapine* (Mirtazapine*) 7.5 Mg Tablet, 7.5 MG GTB HS, TAB 10/07/18 Magnesium Hydroxide* (Milk Of Magnesia*) 400 Mg/5 Ml Oral.susp, 30 ML GTB Q24H for CONSTIPATION, ML 10/07/18 Metoprolol Tartrate* (Lopressor*) 25 Mg Tab, 25 MG GTB BID, #60 TAB HOLD FOR SBP<110 OR PULSE<60 10/07/18 Hydralazine Hcl* (Hydralazine Hcl*) 25 Mg Tab, 25 MG GTB Q8, #90 TAB HOLD FOR SBP<110 OR PULSE<60 10/07/18 Hydralazine Hcl* (Hydralazine Hcl*) 10 Mg Tablet, 10 MG GTB Q8 for FOR HTN FOR SBP<159, #90 TAB 10/07/18 Mineral Oil (Fleet Mineral Oil Enema) 133 Ml Enema, 133 ML RC Q 3 DAYS, ENEMA 10/07/18 Epoetin Hemant (Epogen) 10,000 Units/Ml Soln, 92699 UNITS SC Q MON,WED,FRI, VIAL 10/07/18 Bisacodyl* (Bisacodyl*) 10 Mg Supp, 10 MG WA Q24H for CONSTIPATION, SUPP 10/07/18 Docusate Sodium* (Colace*) 100 Mg Capsule, 100 MG GTB BID, #60 CAP 10/07/18 Allopurinol* (Allopurinol*) 300 Mg Tablet, 300 MG GTB DAILY, TAB 10/07/18 Alendronate Sodium* (Fosamax*) 70 Mg Tablet, 70 MG GTB Q SUN, #4 TAB 10/07/18 Acetaminophen* (Acetaminophen*) 325 Mg Tablet, 650 MG GTB DAILY PRN for PAIN AND OR ELEVATED TEMP, #30 TAB 30 MINS BEFORE TREATMENT. 10/07/18 Medications Current Medications Norepinephrine 250 ml @ 1.875 mls/ hr TITRATE IV Last administered on 10/07/18at 14:45; Admin Dose 37.5 MLS/HR; Start 10/07/18 at 15:00 IV Flush (NS 3 ml) 3 ml PER PROTOCOL IV ; Start 10/07/18 at 18:30 Ondansetron HCl (Zofran Inj) 4 mg Q6H PRN IV NAUSEA/VOMITING; Start 10/07/18 at 18:30 Acetaminophen (Tylenol Tab) 650 mg Q6H PRN PO .PAIN 1-3 OR TEMP; Start 10/07/18 at 18:30 Acetaminophen/ Hydrocodone Bitart (Usk (5/325)) 1 tab Q6H PRN PO .MOD PAIN 4- 6; Start 10/07/18 at 18:30 Morphine Sulfate (morphine) 2 mg Q4H PRN IV .SEVERE PAIN 7-10; Start 10/07/18 at 18:30 Docusate Sodium (Colace) 100 mg Q12H PRN PO .CONSTIPATION; Start 10/07/18 at 18:30 Magnesium Hydroxide (Milk Of Mag) 30 ml DAILY PRN PO .CONSTIPATION; Start 10/07/18 at 18:30 Famotidine (Pepcid Iv) 20 mg HS IV Last administered on 10/07/18at 21:54; Admin Dose 20 MG; Start 10/07/18 at 21:00 Sodium Chloride 1,000 ml @ 50 mls/hr Q20H IV Last administered on 10/08/18at 08:10; Admin Dose 50 MLS/HR; Start 10/07/18 at 18:27 Lorazepam (Ativan) 0.5 mg Q6H PRN IV ANXIETY; Start 10/07/18 at 18:30 Piperacillin Sod/ Tazobactam Sod 100 ml @ 200 mls/hr Q6 IVPB Last administered on 10/08/18at 08:07; Admin Dose 200 MLS/HR; Start 10/08/18 at 00:00 Vancomycin HCl (Vanco Iv Per Pharmacy) VANCOMYCIN PER PHARMACY NOTE XX ; Start 10/07/18 at 18:30 Hydralazine HCl (Apresoline) 10 mg Q6H PRN IV ELEVATED BLOOD PRESSURE; Start 10/07/18 at 18:30 Nitroglycerin (Nitroglycerin (Sl Tab) 0.4 Mg) 1 tab Q5M PRN SL ANGINA; Start 10/07/18 at 18:30 Levalbuterol (Xopenex Neb) 0.63 mg QID RESP THERAPY PRN INH WHEEZING AND SOB; Start 10/07/18 at 18:30 Magnesium Hydroxide (Milk Of Mag) 30 ml Q24H GTB Last administered on 10/07/18at 21:54; Admin Dose 30 ML; Start 10/07/18 at 18:30 Norepinephrine 32 mg/Dextrose 250 ml @ 0.47 mls/hr TITRATE IV Last administered on 10/07/18at 21:19; Admin Dose 9.38 MLS/HR; Start 10/07/18 at 18:30 Vancomycin HCl 1.25 gm/Sodium Chloride 250 ml @ 83.333 mls/ hr Q24H IVPB ; Start 10/08/18 at 18:00 Epoetin Hemant (Epogen (Esrd)) 10,000 units TuThSa@17 [place] ; Start 10/08/18 at 17:00 Allergies: Uncoded Allergies: SHELLFISH (Allergy, Unknown, 10/07/18) Social History Smoking Status: Never smoker Exam/Review of Systems Vital Signs Vitals Vital Signs Date Temp Pulse Resp B/P (MAP) Pulse Ox O2 O2 Flow FiO2 Time Delivery Rate 10/08/18 81 17 119/83 100 Mechanical 08:45 (95) Ventilator 10/08/18 98.6 07:00 10/08/18 60 05:21 10/07/18 10.0 17:59 Intake and Output 10/07/18 10/07/18 10/08/18 1515:00 23:00 07:00 IntakeIntake Total 0 ml OutputOutput Total 585 ml BalanceBalance -585 ml Exam Exam General: Elderly gentleman status with tracheostomy HEENT: NC/AT. pupils are equal. round. NECK: . no stridor. CV: RRR. systolic murmur; no gallop or rubs. PULM: no wheezing + rhonchi. GI: SOFT, NT, ND, no rebound or guarding . s/p PEG Extremity: trace B/L LE edema. no clubbing. neuro: Does not respond to verbal stimuli Psych: calm rectal: deferred EKG was personally reviewed normal sinus rhythm. ST-T wave abnormality suggestive of inferolateral ischemia Chest x-ray done in the ER shows: Mild cardiomegaly with moderate pulmonary vascular congestion. Moderate bilateral pleural effusions, left greater than right. Head CT done in the ER shows: 1. No acute intracranial hemorrhage, transcortical infarction or mass effect. 2. Moderate intracranial atherosclerosis and chronic small vessel ischemic changes. 3. 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 4. Mild to moderate generalized cerebral volume loss. Labs Result Diagram: 10/08/18 0443 10/08/18 0443 Results 24hrs Laboratory Tests Test 10/07/18 14:32 10/07/18 16:10 10/07/18 16:36 10/07/18 18:00 White Blood 9.2 Count Red Blood Count 2.72 L Hemoglobin 7.2 L Hematocrit 25.9 L Mean Corpuscular 95.2 Volume Mean Corpuscular 26.5 L Hemoglobin Mean Corpuscular 27.8 L Hemoglobin Trini nt Red Cell 17.4 H Distribution Width Platelet Count 114 L Mean Platelet 13.0 H Volume Immature 0.700 H Granulocytes % Neutrophils % 79.5 H Lymphocytes % 11.8 L Monocytes % 7.7 Eosinophils % 0.1 Basophils % 0.2 Nucleated Red 3.3 H Blood Cells % Immature 0.060 H Granulocytes # Neutrophils # 7.3 Lymphocytes # 1.1 Monocytes # 0.7 Eosinophils # 0.0 Basophils # 0.0 Nucleated Red 0.3 H Blood Cells # Prothrombin Time 17.6 H Prothrombin Time 1.4 Ratio INR 1.44 International Normalized Ratio Activated 42.9 H Partial Thrombop last Time Sodium Level 145 H Potassium Level 4.8 Chloride Level 102 Carbon Dioxide 32 H Level Anion Gap 11 Blood Urea 84 H Nitrogen Creatinine 1.46 H Est Glomerular Filtrat Rate mL/min Glucose Level 81 Hemoglobin A1c 5.6 Lactic Acid 6.6 *H 3.6 *H Level Calcium Level 9.5 Total Bilirubin 0.2 Direct Bilirubin 0.00 Indirect 0.2 Bilirubin Aspartate Amino 78 H Transf (AST/SGOT ) Alanine 30 Aminotransferase (ALT/SGPT) Alkaline 137 H Phosphatase Troponin I 0.251 *H Total Protein 7.4 Albumin 3.2 L Globulin 4.20 H Albumin/Globulin 0.76 Ratio Free Thyroxine 1.19 Urine Color BH[place] Urine Clarity SLIGHTLY CLOUDY A Urine pH 5.0 Urine Specific 1.014 [place] Urine Ketones NEGATIVE Urine Nitrite NEGATIVE Urine Bilirubin NEGATIVE Urine 1+ H Urobilinogen Urine Leukocyte 1+ H Esterase Urine 9 H Microscopic RBC Urine 14 H Microscopic WBC Urine Squamous FEW Epithelial Cells Urine Bacteria FEW A Urine Mucus FEW A Urine Yeast MANY A (Budding) Urine Hemoglobin NEGATIVE Urine Glucose NEGATIVE Urine Total 1+ H Protein Blood Gas Blood arterial Specimen Source Arterial Blood 10/07/2018 3:30: Date Drawn 00 PM Arterial Blood 7.340 L pH (Temp corrected) Arterial Blood 59.0 H pCO2 (Temp correct) Arterial Blood 69.6 L pO2 (Temp corrected) Arterial Blood 31.1 H HCO3 Arterial Blood 4.5 H Base Excess Arterial Blood 91.8 L Oxygen Saturatio n Rosendo Test ACCEPTAB Arterial Blood Left Radial Gas Puncture Site Arterial 0.5 Blood Carboxyhem oglobin Arterial Blood 0.4 Methemoglobin Blood Gas A-a O2 584.4 H Differential Oxyhemoglobin 91.0 L Percent Blood Gas 37.0 Temperature Blood Gas 12.0 Respiration Rate Blood Gas Actual 18 Respiration Rate Blood Gas VENT - AC Modality FiO2 100.0 Blood Gas Tidal 500.0 Volume Blood Gas High 5.0 PEEP Setting Blood Gas DR Alesia WINKLER Critical Value Read Back Blood Gas [facility] Notified Whom Blood Gas 10/07/2018 3:39: Notified Time 00 PM Test 10/07/18 19:32 10/08/18 02:35 10/08/18 04:43 Hemoglobin 7.6 L 7.6 L 7.7 L Hematocrit 26.7 L 26.3 L 26.4 L Lactic Acid 2.5 *H 1.7 Level Troponin I 3.520 *H 11.200 *H White Blood 14.4 #H Count Red Blood Count 2.87 L Mean Corpuscular 92.0 Volume Mean Corpuscular 26.8 L Hemoglobin Mean Corpuscular 29.2 L Hemoglobin Trini nt Red Cell 16.9 H Distribution Width Platelet Count 124 L Mean Platelet 13.4 H Volume Immature 0.500 H Granulocytes % Neutrophils % Segmented 47 Neutrophils % (Manual) Band Neutrophils 7 H % (Manual) Lymphocytes % Lymphocytes % 33 (Manual) Monocytes % Monocytes % 12 H (Manual) Eosinophils % Basophils % Myelocytes % 1 H (Manual) Nucleated Red 3 H Blood Cells % Immature 0.070 H Granulocytes # Neutrophils # Neutrophils # 6.9 (Manual) Band Neutrophils 1.0 H # Lymphocytes 4.7 H (Manual) Lymphocytes # Monocytes # Monocytes # 1.7 H (Manual) Eosinophils # Basophils # Myelocytes # 0.1 H Nucleated Red Blood Cells # Platelet DECREASED Estimate Polychromasia 3+ Hypochromasia 1+ Anisocytosis 1+ Macrocytosis 1+ Ovalocytes 1+ Stomatocytes 1+ Sodium Level 143 Potassium Level 4.7 Chloride Level 103 Carbon Dioxide 33 H Level Anion Gap 7 Blood Urea 97 H Nitrogen Creatinine 1.74 H Est Glomerular Filtrat Rate mL/min Glucose Level 110 Hemoglobin A1c 5.5 Calcium Level 8.9 Phosphorus Level 3.9 Magnesium Level 2.8 H Triglycerides 42 Level Cholesterol 81 L Level LDL Cholesterol, 24 Calculated HDL Cholesterol 49 Cholesterol/HDL 1.6 Ratio Thyroid 1.770 Stimulating Hormone (TSH) Medications Medications Current Medications Norepinephrine 250 ml @ 1.875 mls/ hr TITRATE IV Last administered on 10/07/18at 14:45; Admin Dose 37.5 MLS/HR; Start 10/07/18 at 15:00 IV Flush (NS 3 ml) 3 ml PER PROTOCOL IV ; Start 10/07/18 at 18:30 Ondansetron HCl (Zofran Inj) 4 mg Q6H PRN IV NAUSEA/VOMITING; Start 10/07/18 at 18:30 Acetaminophen (Tylenol Tab) 650 mg Q6H PRN PO .PAIN 1-3 OR TEMP; Start 10/07/18 at 18:30 Acetaminophen/ Hydrocodone Bitart (Usk (5/325)) 1 tab Q6H PRN PO .MOD PAIN 4- 6; Start 10/07/18 at 18:30 Morphine Sulfate (morphine) 2 mg Q4H PRN IV .SEVERE PAIN 7-10; Start 10/07/18 at 18:30 Docusate Sodium (Colace) 100 mg Q12H PRN PO .CONSTIPATION; Start 10/07/18 at 18:30 Magnesium Hydroxide (Milk Of Mag) 30 ml DAILY PRN PO .CONSTIPATION; Start 10/07/18 at 18:30 Famotidine (Pepcid Iv) 20 mg HS IV Last administered on 10/07/18at 21:54; Admin Dose 20 MG; Start 10/07/18 at 21:00 Sodium Chloride 1,000 ml @ 50 mls/hr Q20H IV Last administered on 10/08/18at 08:10; Admin Dose 50 MLS/HR; Start 10/07/18 at 18:27 Lorazepam (Ativan) 0.5 mg Q6H PRN IV ANXIETY; Start 10/07/18 at 18:30 Piperacillin Sod/ Tazobactam Sod 100 ml @ 200 mls/hr Q6 IVPB Last administered on 10/08/18at 08:07; Admin Dose 200 MLS/HR; Start 10/08/18 at 00:00 Vancomycin HCl (Vanco Iv Per Pharmacy) VANCOMYCIN PER PHARMACY NOTE XX ; Start 10/07/18 at 18:30 Hydralazine HCl (Apresoline) 10 mg Q6H PRN IV ELEVATED BLOOD PRESSURE; Start 10/07/18 at 18:30 Nitroglycerin (Nitroglycerin (Sl Tab) 0.4 Mg) 1 tab Q5M PRN SL ANGINA; Start 10/07/18 at 18:30 Levalbuterol (Xopenex Neb) 0.63 mg QID RESP THERAPY PRN INH WHEEZING AND SOB; Start 10/07/18 at 18:30 Magnesium Hydroxide (Milk Of Mag) 30 ml Q24H GTB Last administered on 10/07/18at 21:54; Admin Dose 30 ML; Start 10/07/18 at 18:30 Norepinephrine 32 mg/Dextrose 250 ml @ 0.47 mls/hr TITRATE IV Last administered on 10/07/18at 21:19; Admin Dose 9.38 MLS/HR; Start 10/07/18 at 18:30 Vancomycin HCl 1.25 gm/Sodium Chloride 250 ml @ 83.333 mls/ hr Q24H IVPB ; Start 10/08/18 at 18:00 Epoetin Hemant ([facility] (Esrd)) [facility] [place] ; Start 10/08/18 at 17:00 KAILEE GILLIAM MD Oct 08, 2018 09:22
[2018-10-08] MEDS: ASPIRIN 81 MG TAB GTB SCH ×2 (09:30→10:38)
--- NOTE | 2018-10-08 09:33 | CONS ---
Assessment/Plan Assessment/Plan Assessment/Plan (Daily) Chest x-ray showing bilateral pneumonia more pronounced in right lower lobe. Ventilator setting; AC of 20, tidal volume 500, PEEP of 5, 70% FiO2. Patient is currently on Levophed at 15 mics per minute. Assessment and recommendations; 1. Patient with history of VD RF and chronic dementia admitted for sepsis, source likely being pneumonia with bilateral lower lobe pneumonia. Patient also does have superficial stage II sacral ulcers which likely are not a source of infection. 2. Significant elevation in troponin non-STEMI. 3. History of bladder cancer. 4. History of gout. 5. Persistent mild hypotension, requiring pressor support. 6. Anemia and thrombocytopenia. 7. Prior history of cardiac arrest with CPR. Continue current supportive care. Continue current antibiotics. Wean down FiO2 to keep O2 saturation around 93-94%. Obtain follow-up chest x-ray 24 hours. Wean down pressor support as tolerated. Hold DVT prophylaxis with anticoagulation due to anemia. Monitor H&H. 40 minutes of critical care time was spent evaluating the patient. Consultation Date/Type/Reason Admit Date/Time Oct 07, 2018 at 18:23 Date of Consultation: Oct 08, 2018 Type of Consult Pulmonary/critical care Pulmonary consult requested for evaluation of chronic respiratory failure, patient admitted for sepsis. Patient is a 88-year-old male transferred from half-way with apparently altered mental status. Upon further evaluation patient was found to be severely septic as well as hypotensive. Patient also has significant elevation in troponins. Patient apparently has history of advanced dementia and was himself unable to give any history whatsoever. But according to medical record patient at the nursing facility was able to have pured diet and was somewhat communicative. By the time I saw the patient, patient is on ventilator via tracheostomy and is unresponsive. Patient however did not appear to be in any distress. Past medical history; 1. VDR F 2. History of bladder cancer. 3. Likely chronic renal insufficiency. 4. History of bullous pemphigoid. 5. Likely chronic type II respiratory failure. 6. History of cardiac arrest status post CPR in the past. 7. Gout 8. Status post tracheostomy and G-tube. Medications; reviewed. Allergies; shellfish. Family history, social history, occupational history is not available. Review of system; unable to be obtained. General exam; elderly male, on ventilator via tracheostomy, unresponsive, currently in no distress. Date/Time of Note DATE: 10/08/18 TIME: 09:28 Past Medical History Home Meds Reported Medications Levalbuterol Hcl* (Levalbuterol Hcl*) 0.63 Mg/3 Ml Vial.neb, 0.63 MG INHALATION QID PRN for WHEEZING AND SOB, VIAL 10/07/18 Acetaminophen* (Tylenol*) 325 Mg Tablet, 650 MG GTB Q6H PRN for MILD PAIN LEVEL 1-3, TAB FOR TEMP>100.5 10/07/18 Terazosin Hcl* (Terazosin Hcl*) 2 Mg Capsule, 2 MG GTB HS, CAP 10/07/18 Tamsulosin Hcl* (Tamsulosin Hcl*) 0.4 Mg Cap.er.24h, 0.4 MG GTB DAILY, CAP 10/07/18 Sennosides* (Senna Lax*) 8.6 Mg Tablet, 1 TAB GTB QHS, TAB 10/07/18 Hydrocodone/Acetaminophen ([place] 5-325 Tablet) 1 Each Tablet, 1 EACH GTB Q6H, TAB 10/07/18 [Nephro Vitamins ] No Conflict Check, 1 TAB GTB DAILY 10/07/18 Mirtazapine* (Mirtazapine*) 7.5 Mg Tablet, 7.5 MG GTB HS, TAB 10/07/18 Magnesium Hydroxide* (Milk Of Magnesia*) 400 Mg/5 Ml Oral.susp, 30 ML GTB Q24H for CONSTIPATION, ML 10/07/18 Metoprolol Tartrate* (Lopressor*) 25 Mg Tab, 25 MG GTB BID, #60 TAB HOLD FOR SBP<110 OR PULSE<60 10/07/18 Hydralazine Hcl* (Hydralazine Hcl*) 25 Mg Tab, 25 MG GTB Q8, #90 TAB HOLD FOR SBP<110 OR PULSE<60 10/07/18 Hydralazine Hcl* (Hydralazine Hcl*) 10 Mg Tablet, 10 MG GTB Q8 for FOR HTN FOR SBP<159, #90 TAB 10/07/18 Mineral Oil (Fleet Mineral Oil Enema) 133 Ml Enema, 133 ML RC Q 3 DAYS, ENEMA 10/07/18 Epoetin Hemant (Epogen) 10,000 Units/Ml Soln, 75037 UNITS SC Q MON,WED,FRI, VIAL 10/07/18 Bisacodyl* (Bisacodyl*) 10 Mg Supp, 10 MG HI Q24H for CONSTIPATION, SUPP 10/07/18 Docusate Sodium* (Colace*) 100 Mg Capsule, 100 MG GTB BID, #60 CAP 10/07/18 Allopurinol* (Allopurinol*) 300 Mg Tablet, 300 MG GTB DAILY, TAB 10/07/18 Alendronate Sodium* (Fosamax*) 70 Mg Tablet, 70 MG GTB Q SUN, #4 TAB 10/07/18 Acetaminophen* (Acetaminophen*) 325 Mg Tablet, 650 MG GTB DAILY PRN for PAIN AND OR ELEVATED TEMP, #30 TAB 30 MINS BEFORE TREATMENT. 10/07/18 Medications Current Medications Norepinephrine 250 ml @ 1.875 mls/ hr TITRATE IV Last administered on 10/07/18 at 14:45; Admin Dose 37.5 MLS/HR; Start 10/07/18 at 15:00 IV Flush (NS 3 ml) 3 ml PER PROTOCOL IV ; Start 10/07/18 at 18:30 Ondansetron HCl (Zofran Inj) 4 mg Q6H PRN IV NAUSEA/VOMITING; Start 10/07/18 at 18:30 Acetaminophen (Tylenol Tab) 650 mg Q6H PRN PO .PAIN 1-3 OR TEMP; Start 10/07/18 at 18:30 Acetaminophen/ Hydrocodone Bitart ([place] (5/325)) 1 tab Q6H PRN PO .MOD PAIN 4- 6; Start 10/07/18 at 18:30 Morphine Sulfate (morphine) 2 mg Q4H PRN IV .SEVERE PAIN 7-10; Start 10/07/18 at 18:30 Docusate Sodium (Colace) 100 mg Q12H PRN PO .CONSTIPATION; Start 10/07/18 at 18:30 Magnesium Hydroxide (Milk Of Mag) 30 ml DAILY PRN PO .CONSTIPATION; Start 10/07/18 at 18:30 Famotidine (Pepcid Iv) 20 mg HS IV Last administered on 10/07/18at 21:54; Admin Dose 20 MG; Start 10/07/18 at 21:00 Sodium Chloride 1,000 ml @ 50 mls/hr Q20H IV Last administered on 10/08/18at 08:10; Admin Dose 50 MLS/HR; Start 10/07/18 at 18:27 Lorazepam (Ativan) 0.5 mg Q6H PRN IV ANXIETY; Start 10/07/18 at 18:30 Piperacillin Sod/ Tazobactam Sod 100 ml @ 200 mls/hr Q6 IVPB Last administered on 10/08/18at 08:07; Admin Dose 200 MLS/HR; Start 10/08/18 at 00:00 Vancomycin HCl (Vanco Iv Per Pharmacy) VANCOMYCIN PER PHARMACY NOTE XX ; Start 10/07/18 at 18:30 Hydralazine HCl (Apresoline) 10 mg Q6H PRN IV ELEVATED BLOOD PRESSURE; Start 10/07/18 at 18:30 Nitroglycerin (Nitroglycerin (Sl Tab) 0.4 Mg) 1 tab Q5M PRN SL ANGINA; Start 10/07/18 at 18:30 Levalbuterol (Xopenex Neb) 0.63 mg QID RESP THERAPY PRN INH WHEEZING AND SOB; Start 10/07/18 at 18:30 Magnesium Hydroxide (Milk Of Mag) 30 ml Q24H GTB Last administered on 10/07/18at 21:54; Admin Dose 30 ML; Start 10/07/18 at 18:30 Norepinephrine 32 mg/Dextrose 250 ml @ 0.47 mls/hr TITRATE IV Last administered on 10/07/18at 21:19; Admin Dose 9.38 MLS/HR; Start 10/07/18 at 18:30 Vancomycin HCl 1.25 gm/Sodium Chloride 250 ml @ 83.333 mls/ hr Q24H IVPB ; Start 10/08/18 at 18:00 Epoetin Hemant (Epogen (Esrd)) 10,000 units TuThSa@17 SC ; Start 10/08/18 at 17:00 Allergies: Uncoded Allergies: SHELLFISH (Allergy, Unknown, 10/07/18) Social History Smoking Status: Never smoker Exam/Review of Systems Exam Vitals Vital Signs Date Temp Pulse Resp B/P (MAP) Pulse Ox O2 O2 Flow FiO2 Time Delivery Rate 10/08/18 81 17 119/83 100 Mechanical 08:45 (95) Ventilator 10/08/18 98.6 07:00 10/08/18 60 05:21 10/07/18 10.0 17:59 Intake and Output 3/10/07/18 10/08/18 1515:00 23:00 07:00 IntakeIntake Total 0 ml OutputOutput Total 585 ml BalanceBalance -585 ml Exam H EENT exam; supple neck, no JVD. No lymphadenopathy. Midline trachea. No thyromegaly. Patient has fair dentition. No neck masses. Tracheostomy in place. Insertion site is clean. Pupils are small bilaterally. No neck masses. Chest exam; diminished breath sounds bilaterally. S1-S2 audible, no murmurs. Regular rhythm. Abdomen exam; soft, nondistended. G-tube in place. No organomegaly. Bowel sounds audible. No scars are present. Extremity exam; no edema. 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 Results Result Diagram: 10/08/18 0443 10/08/18 0443 Results 24hrs Laboratory Tests Test 10/07/18 14:32 10/07/18 16:10 10/07/18 16:36 10/07/18 18:00 White Blood 9.2 Count Red Blood Count 2.72 L Hemoglobin 7.2 L Hematocrit 25.9 L Mean Corpuscular 95.2 Volume Mean Corpuscular 26.5 L Hemoglobin Mean Corpuscular 27.8 L Hemoglobin Trini nt Red Cell 17.4 H Distribution Width Platelet Count 114 L Mean Platelet 13.0 H Volume Immature 0.700 H Granulocytes % Neutrophils % 79.5 H Lymphocytes % 11.8 L Monocytes % 7.7 Eosinophils % 0.1 Basophils % 0.2 Nucleated Red 3.3 H Blood Cells % Immature 0.060 H Granulocytes # Neutrophils # 7.3 Lymphocytes # 1.1 Monocytes # 0.7 Eosinophils # 0.0 Basophils # 0.0 Nucleated Red 0.3 H Blood Cells # Prothrombin Time 17.6 H Prothrombin Time 1.4 Ratio INR 1.44 International Normalized Ratio Activated 42.9 H Partial Thrombop last Time Sodium Level 145 H Potassium Level 4.8 Chloride Level 102 Carbon Dioxide 32 H Level Anion Gap 11 Blood Urea 84 H Nitrogen Creatinine 1.46 H Est Glomerular Filtrat Rate mL/min Glucose Level 81 Hemoglobin A1c 5.6 Lactic Acid 6.6 *H 3.6 *H Level Calcium Level 9.5 Total Bilirubin 0.2 Direct Bilirubin 0.00 Indirect 0.2 Bilirubin Aspartate Amino 78 H Transf (AST/SGOT ) Alanine 30 Aminotransferase (ALT/SGPT) Alkaline 137 H Phosphatase Troponin I 0.251 *H Total Protein 7.4 Albumin 3.2 L Globulin 4.20 H Albumin/Globulin 0.76 Ratio Free Thyroxine 1.19 Urine Color [place] Urine Clarity SLIGHTLY CLOUDY A Urine pH 5.0 Urine Specific 1.014 [place] Urine Ketones NEGATIVE Urine Nitrite NEGATIVE Urine Bilirubin NEGATIVE Urine 1+ H Urobilinogen Urine Leukocyte 1+ H Esterase Urine 9 H Microscopic RBC Urine 14 H Microscopic WBC Urine Squamous FEW Epithelial Cells Urine Bacteria FEW A Urine Mucus FEW A Urine Yeast MANY A (Budding) Urine Hemoglobin NEGATIVE Urine Glucose NEGATIVE Urine Total 1+ H Protein Blood Gas Blood arterial Specimen Source Arterial Blood 10/07/2018 3:30: Date Drawn 00 PM Arterial Blood 7.340 L pH (Temp corrected) Arterial Blood 59.0 H pCO2 (Temp correct) Arterial Blood 69.6 L pO2 (Temp corrected) Arterial Blood 31.1 H HCO3 Arterial Blood 4.5 H Base Excess Arterial Blood 91.8 L Oxygen Saturatio n Ros[place] Test ACCEPTAB Arterial Blood Left Radial Gas Puncture Site Arterial 0.5 Blood Carboxyhem oglobin Arterial Blood 0.4 Methemoglobin Blood Gas A-a O2 584.4 H Differential Oxyhemoglobin 91.0 L Percent Blood Gas 37.0 Temperature Blood Gas 12.0 Respiration Rate Blood Gas Actual 18 Respiration Rate Blood Gas VENT - AC Modality FiO2 100.0 Blood Gas Tidal 500.0 Volume Blood Gas High 5.0 PEEP Setting Blood Gas DR Alesia WINKLER Critical Value Read Back Blood Gas [facility] Notified Whom Blood Gas 10/07/2018 3:39: Notified Time 00 PM Test 10/07/18 19:32 10/08/18 02:35 10/08/18 04:43 Hemoglobin 7.6 L 7.6 L 7.7 L Hematocrit 26.7 L 26.3 L 26.4 L Lactic Acid 2.5 *H 1.7 Level Troponin I 3.520 *H 11.200 *H White Blood 14.4 #H Count Red Blood Count 2.87 L Mean Corpuscular 92.0 Volume Mean Corpuscular 26.8 L Hemoglobin Mean Corpuscular 29.2 L Hemoglobin Trini nt Red Cell 16.9 H Distribution Width Platelet Count 124 L Mean Platelet 13.4 H Volume Immature 0.500 H Granulocytes % Neutrophils % Segmented 47 Neutrophils % (Manual) Band Neutrophils 7 H % (Manual) Lymphocytes % Lymphocytes % 33 (Manual) Monocytes % Monocytes % 12 H (Manual) Eosinophils % Basophils % Myelocytes % 1 H (Manual) Nucleated Red 3 H Blood Cells % Immature 0.070 H Granulocytes # Neutrophils # Neutrophils # 6.9 (Manual) Band Neutrophils 1.0 H # Lymphocytes 4.7 H (Manual) Lymphocytes # Monocytes # Monocytes # 1.7 H (Manual) Eosinophils # Basophils # Myelocytes # 0.1 H Nucleated Red Blood Cells # Platelet DECREASED Estimate Polychromasia 3+ Hypochromasia 1+ Anisocytosis 1+ Macrocytosis 1+ Ovalocytes 1+ Stomatocytes 1+ Sodium Level 143 Potassium Level 4.7 Chloride Level 103 Carbon Dioxide 33 H Level Anion Gap 7 Blood Urea 97 H Nitrogen Creatinine 1.74 H Est Glomerular Filtrat Rate mL/min Glucose Level 110 Hemoglobin A1c 5.5 Calcium Level 8.9 Phosphorus Level 3.9 Magnesium Level 2.8 H Triglycerides 42 Level Cholesterol 81 L Level LDL Cholesterol, 24 Calculated HDL Cholesterol 49 Cholesterol/HDL 1.6 Ratio Thyroid 1.770 Stimulating Hormone (TSH) Medications Medication Current Medications Norepinephrine 250 ml @ 1.875 mls/ hr TITRATE IV Last administered on 10/07/18at 14:45; Admin Dose 37.5 MLS/HR; Start 10/07/18 at 15:00 IV Flush (NS 3 ml) 3 ml PER PROTOCOL IV ; Start 10/07/18 at 18:30 Ondansetron HCl (Zofran Inj) 4 mg Q6H PRN IV NAUSEA/VOMITING; Start 10/07/18 at 18:30 Acetaminophen (Tylenol Tab) 650 mg Q6H PRN PO .PAIN 1-3 OR TEMP; Start 10/07/18 at 18:30 Acetaminophen/ Hydrocodone Bitart ([place] (5/325)) 1 tab Q6H PRN PO .MOD PAIN 4- 6; Start 10/07/18 at 18:30 Morphine Sulfate (morphine) 2 mg Q4H PRN IV .SEVERE PAIN 7-10; Start 10/07/18 at 18:30 Docusate Sodium (Colace) 100 mg Q12H PRN PO .CONSTIPATION; Start 10/07/18 at 18:30 Magnesium Hydroxide (Milk Of Mag) 30 ml DAILY PRN PO .CONSTIPATION; Start 10/07/18 at 18:30 Famotidine (Pepcid Iv) 20 mg HS IV Last administered on 10/07/18at 21:54; Admin Dose 20 MG; Start 10/07/18 at 21:00 Sodium Chloride 1,000 ml @ 50 mls/hr Q20H IV Last administered on 10/08/18at 08:10; Admin Dose 50 MLS/HR; Start 10/07/18 at 18:27 Lorazepam (Ativan) 0.5 mg Q6H PRN IV ANXIETY; Start 10/07/18 at 18:30 Piperacillin Sod/ Tazobactam Sod 100 ml @ 200 mls/hr Q6 IVPB Last administered on 10/08/18at 08:07; Admin Dose 200 MLS/HR; Start 10/08/18 at 00:00 Vancomycin HCl (Vanco Iv Per Pharmacy) VANCOMYCIN PER PHARMACY NOTE XX ; Start 10/07/18 at 18:30 Hydralazine HCl (Apresoline) 10 mg Q6H PRN IV ELEVATED BLOOD PRESSURE; Start 10/07/18 at 18:30 Nitroglycerin (Nitroglycerin (Sl Tab) 0.4 Mg) 1 tab Q5M PRN SL ANGINA; Start 10/07/18 at 18:30 Levalbuterol (Xopenex Neb) 0.63 mg QID RESP THERAPY PRN INH WHEEZING AND SOB; Start 10/07/18 at 18:30 Magnesium Hydroxide (Milk Of Mag) 30 ml Q24H GTB Last administered on 10/07/18at 21:54; Admin Dose 30 ML; Start 10/07/18 at 18:30 Norepinephrine 32 mg/Dextrose 250 ml @ 0.47 mls/hr TITRATE IV Last administ ered on 10/07/18at 21:19; Admin Dose 9.38 MLS/HR; Start 10/07/18 at 18:30 Vancomycin HCl 1.25 gm/Sodium Chloride 250 ml @ 83.333 mls/ hr Q24H IVPB ; Start 10/08/18 at 18:00 Epoetin Hemant (Epogen (Esrd)) 10,000 units TuThSa@17 SC ; Start 10/08/18 at 17:00 MIGUEL MYLES Oct 08, 2018 09:33
[2018-10-08] MEDS ORDERED: SOD CHLORIDE 0.9% 250 ML IV* ONE (10:05)
--- NOTE | 2018-10-08 10:05 | PN ---
Date/Time of Note Date/Time of Note DATE: 10/08/18 TIME: 10:01 Assessment/Plan VTE Prophylaxis Risk score (from Ns)>0 risk: 11 SCD applied (from Ns): Yes Pharmacological prophylaxis: other Lines/Catheters IV Catheter Type (from Nrs): Central Line Central line still needed: Yes Urinary Cath still in place: Yes Reason Cath still needed: urinary retention Assessment/Plan Hospital Course S: Patient seen by pulmonary, cardiology, renal teams, and speech therapist. Still on pressor support. O: VS - see below PHYSICAL EXAMINATION: GENERAL: lying in bed, altered, tracheostomy in place, on pressor support. HEENT: Unable to fully assess at this time. NECK: Supple. No thyromegaly. Tracheostomy in place. No signs of any bleeding. LUNGS: Slightly decreased breath sounds bilaterally. CARDIOVASCULAR: S1, S2 heard. No rubs or gallops. ABDOMEN: Soft, nontender, nondistended. G-tube in place. No rebound or guarding. MUSCULOSKELETAL: No lower extremity edema bilaterally. NEUROLOGIC: Unable to perform due to patient's lethargy at this time. ASSESSMENT AND PLAN: 88-year-old male brought in with hypoxia, altered mental status with signs of septic shock, likely secondary to upper respiratory infection and urinary tract infection, lactic acidosis. 1. Septic shock- again likely secondary to urinary tract infection and pne umonia. Patient also has superficial stage II sacral ulcer; blood culture positive for gram-positive cocci. Still on levo fed. -Continue pressor support, broad spectrum antibiotics. - Follow up final culture results. -Continue Tylenol p.r.n. pain and fevers. Lactic acid is trending down now, consider ID consult. 2. Respiratory distress again with hypoxia- history of tracheostomy placement in the past. Signs of likely pneumonia presently. -Follow-up recommendations pulmonary consult for vent management. - Continue broad spectrum antibiotics, treat possible upper respiratory in fection. - Keep the O2 sats greater than 92%. DuoNeb p.r.n. 3. Elevated troponins -signs of non-ST elevation DE. -Per discussion with cardiology team, medical management for now. Avoiding a nticoagulation at the present time secondary to severe anemia -Continue aspirin, Lipitor for now. Beta-rachael to be initiated when blood pressure more stable -Follow-up results of stool occult test and because hemoglobin today is in the low to mid 7 range, will order for 2 units PRBC transfusion as well -Follow-up results of BNP levels and echo results 4. Renal insufficiency-patient presented with BUN is elevated at 84, creatinine is 1.46, which according to renal team is above his baseline. Symptoms likely secondary to sepsis and hypotension. -For now continue low-dose IV fluids -Follow-up renal recommendations including renal ultrasound results 5. History of prior cardiac arrest. Continue to monitor for now. Follow cardiology recommendations. 6. History of pressure [id number] recommendations from wound care nurse consult. 7. History of gout. Continue to monitor for now. 8. History of dysphagia- -follow-up recommendations from speech therapy evaluation. -Continue G-tube feeds as tolerated. 9. History of congestive heart failure-again, follow-up results of echocardiogram, cardiology consult recommendations 10. History of prostate and bladder cancer. Monitor for now. 11. Gastrointestinal prophylaxis. H2 rachael. 12. Deep venous thrombosis prophylaxis. SCDs for now. Hold off on anticoagulants given his anemia. Check stool occult test as well. Critical care time spent in patient care today equals 45 minutes. Result Diagram: 10/08/18 0911 10/08/18 0443 Results 24hrs Laboratory Tests Test 10/07/18 14:32 10/07/18 16:10 10/07/18 16:36 10/07/18 18:00 White Blood 9.2 Count Red Blood Count 2.72 L Hemoglobin 7.2 L Hematocrit 25.9 L Mean Corpuscular 95.2 Volume Mean Corpuscular 26.5 L Hemoglobin Mean Corpuscular 27.8 L Hemoglobin Trini nt Red Cell 17.4 H Distribution Width Platelet Count 114 L Mean Platelet 13.0 H Volume Immature 0.700 H Granulocytes % Neutrophils % 79.5 H Lymphocytes % 11.8 L Monocytes % 7.7 Eosinophils % 0.1 Basophils % 0.2 Nucleated Red 3.3 H Blood Cells % Immature 0.060 H Granulocytes # Neutrophils # 7.3 Lymphocytes # 1.1 Monocytes # 0.7 Eosinophils # 0.0 Basophils # 0.0 Nucleated Red 0.3 H Blood Cells # Prothrombin Time 17.6 H Prothrombin Time 1.4 Ratio INR 1.44 International Normalized Ratio Activated 42.9 H Partial Thrombop last Time Sodium Level 145 H Potassium Level 4.8 Chloride Level 102 Carbon Dioxide 32 H Level Anion Gap 11 Blood Urea 84 H Nitrogen Creatinine 1.46 H Est Glomerular Filtrat Rate mL/min Glucose Level 81 Hemoglobin A1c 5.6 Lactic Acid 6.6 *H 3.6 *H Level Calcium Level 9.5 Total Bilirubin 0.2 Direct Bilirubin 0.00 Indirect 0.2 Bilirubin Aspartate Amino 78 H Transf (AST/SGOT ) Alanine 30 Aminotransferase (ALT/SGPT) Alkaline 137 H Phosphatase Troponin I 0.251 *H Total Protein 7.4 Albumin 3.2 L Globulin 4.20 H Albumin/Globulin 0.76 Ratio Free Thyroxine 1.19 Urine Color BHAVANA Urine Clarity SLIGHTLY CLOUDY A Urine pH 5.0 Urine Specific 1.014 [place] Urine Ketones NEGATIVE Urine Nitrite NEGATIVE Urine Bilirubin NEGATIVE Urine 1+ H Urobilinogen Urine Leukocyte 1+ H Esterase Urine 9 H Microscopic RBC Urine 14 H Microscopic WBC Urine Squamous FEW Epithelial Cells Urine Bacteria FEW A Urine Mucus FEW A Urine Yeast MANY A (Budding) Urine Hemoglobin NEGATIVE Urine Glucose NEGATIVE Urine Total 1+ H Protein Blood Gas Blood arterial Specimen Source Arterial Blood 10/07/2018 3:30: Date Drawn 00 PM Arterial Blood 7.340 L pH (Temp corrected) Arterial Blood 59.0 H pCO2 (Temp correct) Arterial Blood 69.6 L pO2 (Temp corrected) Arterial Blood 31.1 H HCO3 Arterial Blood 4.5 H Base Excess Arterial Blood 91.8 L Oxygen Saturatio n Rosendo Test ACCEPTAB Arterial Blood Left Radial Gas Puncture Site Arterial 0.5 Blood Carboxyhem oglobin Arterial Blood 0.4 Methemoglobin Blood Gas A-a O2 584.4 H Differential Oxyhemoglobin 91.0 L Percent Blood Gas 37.0 Temperature Blood Gas 12.0 Respiration Rate Blood Gas Actual 18 Respiration Rate Blood Gas VENT - AC Modality FiO2 100.0 Blood Gas Tidal 500.0 Volume Blood Gas High 5.0 PEEP Setting Blood Gas DR Alesia WINKLER Critical Value Read Back Blood Gas T TORRESCOY [facility] Notified Whom Blood Gas 10/07/2018 3:39: Notified Time 00 PM Test 10/07/18 19:32 10/08/18 02:35 10/08/18 04:43 10/08/18 09:11 Hemoglobin 7.6 L 7.6 L 7.7 L 7.7 L Hematocrit 26.7 L 26.3 L 26.4 L 26.1 L Lactic Acid 2.5 *H 1.7 Level Troponin I 3.520 *H 11.200 *H White Blood 14.4 #H Count Red Blood Count 2.87 L Mean Corpuscular 92.0 Volume Mean Corpuscular 26.8 L Hemoglobin Mean Corpuscular 29.2 L Hemoglobin Trini nt Red Cell 16.9 H Distribution Width Platelet Count 124 L Mean Platelet 13.4 H Volume Immature 0.500 H Granulocytes % Neutrophils % Segmented 47 Neutrophils % (Manual) Band Neutrophils 7 H % (Manual) Lymphocytes % Lymphocytes % 33 (Manual) Monocytes % Monocytes % 12 H (Manual) Eosinophils % Basophils % Myelocytes % 1 H (Manual) Nucleated Red 3 H Blood Cells % Immature 0.070 H Granulocytes # Neutrophils # Neutrophils # 6.9 (Manual) Band Neutrophils 1.0 H # Lymphocytes 4.7 H (Manual) Lymphocytes # Monocytes # Monocytes # 1.7 H (Manual) Eosinophils # Basophils # Myelocytes # 0.1 H Nucleated Red Blood Cells # Platelet DECREASED Estimate Polychromasia 3+ Hypochromasia 1+ Anisocytosis 1+ Macrocytosis 1+ Ovalocytes 1+ Stomatocytes 1+ Sodium Level 143 Potassium Level 4.7 Chloride Level 103 Carbon Dioxide 33 H Level Anion Gap 7 Blood Urea 97 H Nitrogen Creatinine 1.74 H Est Glomerular Filtrat Rate mL/min Glucose Level 110 Hemoglobin A1c 5.5 Calcium Level 8.9 Phosphorus Level 3.9 Magnesium Level 2.8 H Triglycerides 42 Level Cholesterol 81 L Level LDL Cholesterol, 24 Calculated HDL Cholesterol 49 Cholesterol/HDL 1.6 Ratio Thyroid 1.770 Stimulating Hormone (TSH) Exam/Review of Systems Exam Vitals Vital Signs Date Temp Pulse Resp B/P (MAP) Pulse Ox O2 O2 Flow FiO2 Time Delivery Rate 10/08/18 81 17 119/83 100 Mechanical 08:45 (95) Ventilator 10/08/18 98.6 07:00 10/08/18 60 05:21 10/07/18 10.0 17:59 Intake and Output 10/07/18 10/07/18 10/08/18 1515:00 23:00 07:00 IntakeIntake Total 0 ml OutputOutput Total 585 ml BalanceBalance -585 ml Results Results 24hrs Laboratory Tests Test 10/07/18 14:32 10/07/18 16:10 10/07/18 16:36 10/07/18 18:00 White Blood 9.2 Count Red Blood Count 2.72 L Hemoglobin 7.2 L Hematocrit 25.9 L Mean Corpuscular 95.2 Volume Mean Corpuscular 26.5 L Hemoglobin Mean Corpuscular 27.8 L Hemoglobin Trini nt Red Cell 17.4 H Distribution Width Platelet Count 114 L Mean Platelet 13.0 H Volume Immature 0.700 H Granulocytes % Neutrophils % 79.5 H Lymphocytes % 11.8 L Monocytes % 7.7 Eosinophils % 0.1 Basophils % 0.2 Nucleated Red 3.3 H Blood Cells % Immature 0.060 H Granulocytes # Neutrophils # 7.3 Lymphocytes # 1.1 Monocytes # 0.7 Eosinophils # 0.0 Basophils # 0.0 Nucleated Red 0.3 H Blood Cells # Prothrombin Time 17.6 H Prothrombin Time 1.4 Ratio INR 1.44 International Normalized Ratio Activated 42.9 H Partial Thrombop last Time Sodium Level 145 H Potassium Level 4.8 Chloride Level 102 Carbon Dioxide 32 H Level Anion Gap 11 Blood Urea 84 H Nitrogen Creatinine 1.46 H Est Glomerular Filtrat Rate mL/min Glucose Level 81 Hemoglobin A1c 5.6 Lactic Acid 6.6 *H 3.6 *H Level Calcium Level 9.5 Total Bilirubin 0.2 Direct Bilirubin 0.00 Indirect 0.2 Bilirubin Aspartate Amino 78 H Transf (AST/SGOT ) Alanine 30 Aminotransferase (ALT/SGPT) Alkaline 137 H Phosphatase Troponin I 0.251 *H Total Protein 7.4 Albumin 3.2 L Globulin 4.20 H Albumin/Globulin 0.76 Ratio Free Thyroxine 1.19 Urine Color BHAVANA Urine Clarity SLIGHTLY CLOUDY A Urine pH 5.0 Urine Specific 1.014 [place] Urine Ketones NEGATIVE Urine Nitrite NEGATIVE Urine Bilirubin NEGATIVE Urine 1+ H Urobilinogen Urine Leukocyte 1+ H Esterase Urine 9 H Microscopic RBC Urine 14 H Microscopic WBC Urine Squamous FEW Epithelial Cells Urine Bacteria FEW A Urine Mucus FEW A Urine Yeast MANY A (Budding) Urine Hemoglobin NEGATIVE Urine Glucose NEGATIVE Urine Total 1+ H Protein Blood Gas Blood arterial Specimen Source Arterial Blood 10/07/2018 3:30: Date Drawn 00 PM Arterial Blood 7.340 L pH (Temp corrected) Arterial Blood 59.0 H pCO2 (Temp correct) Arterial Blood 69.6 L pO2 (Temp corrected) Arterial Blood 31.1 H HCO3 Arterial Blood 4.5 H Base Excess Arterial Blood 91.8 L Oxygen Saturatio n Rosendo Test ACCEPTAB Arterial Blood Left Radial Gas Puncture Site Arterial 0.5 Blood Carboxyhem oglobin Arterial Blood 0.4 Methemoglobin Blood Gas A-a O2 584.4 H Differential Oxyhemoglobin 91.0 L Percent Blood Gas 37.0 Temperature Blood Gas 12.0 Respiration Rate Blood Gas Actual 18 Respiration Rate Blood Gas VENT - AC Modality FiO2 100.0 Blood Gas Tidal 500.0 Volume Blood Gas High 5.0 PEEP Setting Blood Gas DR Alesia WINKLER Critical Value Read Back Blood Gas T EDER [facility] Notified Whom Blood Gas 10/07/2018 3:39: Notified Time 00 PM Test 10/07/18 19:32 10/08/18 02:35 10/08/18 04:43 10/08/18 09:11 Hemoglobin 7.6 L 7.6 L 7.7 L 7.7 L Hematocrit 26.7 L 26.3 L 26.4 L 26.1 L Lactic Acid 2.5 *H 1.7 Level Troponin I 3.520 *H 11.200 *H White Blood 14.4 #H Count Red Blood Count 2.87 L Mean Corpuscular 92.0 Volume Mean Corpuscular 26.8 L Hemoglobin Mean Corpuscular 29.2 L Hemoglobin Trini nt Red Cell 16.9 H Distribution Width Platelet Count 124 L Mean Platelet 13.4 H Volume Immature 0.500 H Granulocytes % Neutrophils % Segmented 47 Neutrophils % (Manual) Band Neutrophils 7 H % (Manual) Lymphocytes % Lymphocytes % 33 (Manual) Monocytes % Monocytes % 12 H (Manual) Eosinophils % Basophils % Myelocytes % 1 H (Manual) Nucleated Red 3 H Blood Cells % Immature 0.070 H Granulocytes # Neutrophils # Neutrophils # 6.9 (Manual) Band Neutrophils 1.0 H # Lymphocytes 4.7 H (Manual) Lymphocytes # Monocytes # Monocytes # 1.7 H (Manual) Eosinophils # Basophils # Myelocytes # 0.1 H Nucleated Red Blood Cells # Platelet DECREASED Estimate Polychromasia 3+ Hypochromasia 1+ Anisocytosis 1+ Macrocytosis 1+ Ovalocytes 1+ Stomatocytes 1+ Sodium Level 143 Potassium Level 4.7 Chloride Level 103 Carbon Dioxide 33 H Level Anion Gap 7 Blood Urea 97 H Nitrogen Creatinine 1.74 H Est Glomerular Filtrat Rate mL/min Glucose Level 110 Hemoglobin A1c 5.5 Calcium Level 8.9 Phosphorus Level 3.9 Magnesium Level 2.8 H Triglycerides 42 Level Cholesterol 81 L Level LDL Cholesterol, 24 Calculated HDL Cholesterol 49 Cholesterol/HDL 1.6 Ratio Thyroid 1.770 Stimulating Hormone (TSH) Medications Medication Current Medications Norepinephrine 250 ml @ 1.875 mls/ hr TITRATE IV Last administered on 10/07/18at 14:45; Admin Dose 37.5 MLS/HR; Start 10/07/18 at 15:00 IV Flush (NS 3 ml) 3 ml PER PROTOCOL IV ; Start 10/07/18 at 18:30 Ondansetron HCl (Zofran Inj) 4 mg Q6H PRN IV NAUSEA/VOMITING; Start 10/07/18 at 18:30 Acetaminophen (Tylenol Tab) 650 mg Q6H PRN PO .PAIN 1-3 OR TEMP; Start 10/07/18 at 18:30 Acetaminophen/ Hydrocodone Bitart ([place] (5/325)) 1 tab Q6H PRN PO .MOD PAIN 4- 6; Start 10/07/18 at 18:30 Morphine Sulfate (morphine) 2 mg Q4H PRN IV .SEVERE PAIN 7-10; Start 10/07/18 at 18:30 Docusate Sodium (Colace) 100 mg Q12H PRN PO .CONSTIPATION; Start 10/07/18 at 18:30 Magnesium Hydroxide (Milk Of Mag) 30 ml DAILY PRN PO .CONSTIPATION; Start 10/07/18 at 18:30 Famotidine (Pepcid Iv) 20 mg HS IV Last administered on 10/07/18at 21:54; Admin Dose 20 MG; Start 10/07/18 at 21:00 Sodium Chloride 1,000 ml @ 50 mls/hr Q20H IV Last administered on 10/08/18at 08:10; Admin Dose 50 MLS/HR; Start 10/07/18 at 18:27 Lorazepam (Ativan) 0.5 mg Q6H PRN IV ANXIETY; Start 10/07/18 at 18:30 Piperacillin Sod/ Tazobactam Sod 100 ml @ 200 mls/hr Q6 IVPB Last administered on 10/08/18at 08:07; Admin Dose 200 MLS/HR; Start 10/08/18 at 00:00 Vancomycin HCl (Vanco Iv Per Pharmacy) VANCOMYCIN PER PHARMACY NOTE XX ; Start 10/07/18 at 18:30 Hydralazine HCl (Apresoline) 10 mg Q6H PRN IV ELEVATED BLOOD PRESSURE; Start 10/07/18 at 18:30 Nitroglycerin (Nitroglycerin (Sl Tab) 0.4 Mg) 1 tab Q5M PRN SL ANGINA; Start 10/07/18 at 18:30 Levalbuterol (Xopenex Neb) 0.63 mg QID RESP THERAPY PRN INH WHEEZING AND SOB; Start 10/07/18 at 18:30 Magnesium Hydroxide (Milk Of Mag) 30 ml Q24H GTB Last administered on 10/07/18at 21:54; Admin Dose 30 ML; Start 10/07/18 at 18:30 Norepinephrine 32 mg/Dextrose 250 ml @ 0.47 mls/hr TITRATE IV Last administered on 10/07/18at 21:19; Admin Dose 9.38 MLS/HR; Start 10/07/18 at 18:30 Vancomycin HCl 1.25 gm/Sodium Chloride 250 ml @ 83.333 mls/ hr Q24H IVPB ; Start 10/08/18 at 18:00 Epoetin Hemant (Epogen (Esrd)) 10,000 units TuThSa@17 SC ; Start 10/08/18 at 17:00 Aspirin (Aspirin) 81 mg DAILY GTB ; Start 10/08/18 at 09:30; Status UNV Atorvastatin Calcium (Lipitor) 40 mg HS GTB ; Start 10/08/18 at 21:00; Status UNV ANGEL PALMA Oct 08, 2018 10:05
--- NOTE | 2018-10-08 11:53 | RADRPT ---
Echocardiogram Report Patient Name: KT TILLEYPatient ID: [id number] : 1930 (88y 1m)Study Date: 10/08/2018 9:15:52 AM Gender: MAccession #: [id number] Tech: Oneal Cleveland RDCS [facility]: [facility] Ref.Physician: KAILEE COLE Height(Cm): BSA: Weight(Kg): Quality: AdequateAccount #: Procedures: Echocardiographic Report: Transthoracic echocardiogram with complete 2D, M-Mode, and doppler examination. Indications: Positive Troponin. Measurements: 2D/M Mode Doppler Measurement Value Normal Range Measurement Value Normal Range LVIDd 2D 4.3 [ 4.2 - 5.8 ] cm AV Peak Jayce 1.4 [ 100.0 - 170.0 ] cm/sec LVIDs 2D 3.0 [ 2.5 - 4.0 ] cm AV Peak PG 8.0 [ 2.0 - 9.0 ] mmHg LVPWd 2D 1.2 [ 0.6 - 1.0 ] cm AI Peak PG 72.0 mmHg IVSd 2D 1.3 [ 0.6 - 1.0 ] cm AI Peak Jayce 4.2 cm/sec AoR Diam 2D 3.4 [ 2.6 - 3.4 ] cm AI PHT 687.0 msec EDV 2D 82.6 [ 62.0 - 150.0 ] ml LVOT Peak Jayce 1.0 [ 70.0 - 110.0 ] cm/sec ESV 2D 34.7 [ 21.0 - 61.0 ] ml LVOT Peak PG 4.0 [ 2.0 - 6.0 ] mmHg EF 2D 58.0 [ 52.0 - 72.0 ] percent MV E Peak Jayce 1.1 [ 60.0 - 130.0 ] cm/sec LA Dimen 2D 3.3 [ 3.0 - 4.0 ] cm MV Decel Time 130 [ 104 - 258 ] msec Lat E` Jayce 0.1 [ 10.0 - 15.0 ] cm/sec Lateral E/E` 9.4 [ 1.0 - 2.0 ] ratio TR Peak Jayce 2.4 [ 100.0 - 280.0 ] cm/sec TR Peak PG 23.0 mmHg RVSP 33.0 [ 10.0 - 36.0 ] mmHg RA Pressure 10.0 mmHg Findings: Left Ventricle: Lower limits of normal systolic function. Normal left ventricular cavity size. Mild concentric left ventricular hypertrophy. Ejection fraction is visually estimated at 50 %. Abnormal Diastolic Function. Right Ventricle: Moderate enlargement of right ventricle. Mild right ventricular hypokinesis. Left Atrium: The left atrium is normal in size. Right Atrium: There is moderate enlargement of right atrium. Mitral Valve: Mitral valve leaflets appear mildly thickened. Mild mitral annular calcification. Trace mitral regurgitation. Aortic Valve: No hemodynamically significant aortic stenosis by doppler. Aortic cusps appear mildly calcified. Trace to mild aortic valve regurgitation. Tricuspid Valve: Normal appearance of the tricuspid valve. Estimated peak PA systolic pressure 33 mmHg. There is trace tricuspid regurgitation. Pulmonic Valve: Pulmonic valve not well visualized. There is trace pulmonic regurgitation. Pericardium: Normal pericardium with no significant pericardial effusion. Aorta: Normal aortic root. IVC: Normal size and normal respiratory collapse consistent with normal right atrial pressure. Inferior vena cava without respiratory collapse, however, patient on ventilator. Conclusions: Lower limits of normal systolic function. Normal left ventricular cavity size. Mild concentric left ventricular hypertrophy. Ejection fraction is visually estimated at 50 %. Abnormal Diastolic Function. Moderate enlargement of right ventricle. Mild right ventricular hypokinesis. There is moderate enlargement of right atrium. Mitral valve leaflets appear mildly thickened. Mild mitral annular calcification. Trace mitral regurgitation. No hemodynamically significant aortic stenosis by doppler. Aortic cusps appear mildly calcified. Trace to mild aortic valve regurgitation. Normal appearance of the tricuspid valve. Estimated peak PA systolic pressure 33 mmHg. There is trace tricuspid regurgitation. Electronically Signed By: Kailee Cole 2018-10-08 11:51:41 PDT
[2018-10-08] MEDS ORDERED: PENDING SANTYL ORDER FOR WOUND CARE XX PRN (12:00)
[2018-10-08] MEDS: EPOETIN 10000 UNITS/1 ML INJ (ESRD) SC SCH (16:17)
[2018-10-08] MEDS: MAGNESIUM HYDROXIDE 30ML CUP GTB SCH (17:24)
[2018-10-08] MEDS ORDERED: VANCOMYCIN HCL 1.25 GM in SOD CHLORIDE 0.9% 250 ML IVPB SCH (18:00)
[2018-10-08] MEDS: VANCOMYCIN HCL 1.25 GM in SOD CHLORIDE 0.9% 250 ML IVPB SCH (18:10)
[2018-10-08] MEDS: ATORVASTATIN 40 MG TAB GTB SCH (21:21)
[2018-10-08] MEDS: FAMOTIDINE 20 MG INJ IV SCH (21:21)
[2018-10-09] VITALS (73 sets, daily range): BP systolic 94–144; BP diastolic 59–96; PULSE 75–90; RESP 9–33
[2018-10-09] MEDS: PIPER-TAZO 3.375 GM IV (PMX) 100 ML IVPB SCH ×3 (05:31→17:28)
--- NOTE | 2018-10-09 07:36 | CONS ---
Consult Date/Type/Reason Admit Date/Time Oct 07, 2018 at 18:23 Initial Consult Date 10/08/18 Type of Consultation: cv Requesting Provider: ANGEL PALMA Date/Time of Note DATE: 10/09/18 TIME: 07:29 Subjective Interventional cardiology follow-up progress note/critical care note Subjective: Discussed with the staff and telemetry was reviewed. Patient remains in normal sinus rhythm Patient remains hypotensive and on Levophed drip. He is a still on the vent he opens his eyes but does not answer questions nonverbal No active bleeding is reported. Patient has not had any bowel movement Discussed multiple physicians and staff Objective: General: Elderly gentleman status post tracheostomy HEENT: NC/AT. pupils are equal. round. NECK: . no stridor. CV: RRR. systolic murmur; no gallop or rubs. PULM: no wheezing + rhonchi. GI: SOFT, NT, ND, no rebound or guarding . s/p PEG Extremity:+ B/L LE edema. no clubbing. neuro: Opens his eyes but does not follow any commands Psych: calm rectal: deferred EKG was personally reviewed normal sinus rhythm. ST-T wave abnormality suggestive of inferolateral ischemia Chest x-ray done in the ER shows: Mild cardiomegaly with moderate pulmonary vascular congestion. Moderate bilateral pleural effusions, left greater than right. Head CT done in the ER shows: 1. No acute intracranial hemorrhage, transcortical infarction or mass effect. 2. Moderate intracranial atherosclerosis and chronic small vessel ischemic changes. 3. 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 4. Mild to moderate generalized cerebral volume loss. Echocardiogram was personally reviewed that shows: Lower limits of normal systolic function. Normal left ventricular cavity size. Mild concentric left ventricular hypertrophy. Ejection fraction is visually estimated at 50 %. Abnormal Diastolic Function. Moderate enlargement of right ventricle. Mild right ventricular hypokinesis. There is moderate enlargement of right atrium. Mitral valve leaflets appear mildly thickened. Mild mitral annular calcification. Trace mitral regurgitation. No hemodynamically significant aortic stenosis by doppler. Aortic cusps appear mildly calcified. Trace to mild aortic valve regurgitation. Normal appearance of the tricuspid valve. Estimated peak PA systolic pressure 33 mmHg. There is trace tricuspid regurgitation. Objective Vitals Vital Signs Date Temp Pulse Resp B/P (MAP) Pulse Ox O2 O2 Flow FiO2 Time Delivery Rate 3/27/19 90 33 102/69 96 Mechanical 07:15 (80) Ventilator 10/09/18 97.8 07:00 10/09/18 35 05:40 10/07/18 10.0 17:59 Intake and Output 10/08/18 10/08/18 10/09/18 1515:00 23:00 07:00 IntakeIntake Total 894.09 ml 867.85 ml 649.87 ml OutputOutput Total 330 ml 505 ml 320 ml BalanceBalance 564.09 ml 362.85 ml 329.87 ml Results/Medications Result Diagram: 10/09/180 10/09/18 0430 Results 24 hrs Laboratory Tests Test 10/08/18 09:11 10/08/18 09:40 10/08/18 14:11 10/08/18 21:18 Hemoglobin 7.7 L 8.5 L Hematocrit 26.1 L 28.0 L Lactic Acid Level 1.4 1.3 Urine Random 38.35 Creatinine Urine Random 26 L Sodium Urine 1.64 Protein/Creatinin e Ratio Urine Total 63.0 H Protein Troponin I 9.790 *H Test 10/09/18 04:30 10/09/18 05:11 White Blood Count 7.8 # Red Blood Count 3.16 L Hemoglobin 8.5 L Hematocrit 28.2 L Mean Corpuscular 89.2 Volume Mean Corpuscular 26.9 L Hemoglobin Mean Corpuscular 30.1 L Hemoglobin Concen t Red Cell 16.6 H Distribution Width Platelet Count 102 L Mean Platelet 13.0 H Volume Immature 0.800 H Granulocytes % Neutrophils % 68.8 Lymphocytes % 14.0 L Monocytes % 11.6 H Eosinophils % 4.4 Basophils % 0.4 Nucleated Red 0.4 H Blood Cells % Immature 0.060 H Granulocytes # Neutrophils # 5.3 Lymphocytes # 1.1 Monocytes # 0.9 Eosinophils # 0.3 Basophils # 0.0 Nucleated Red 0.0 Blood Cells # Sodium Level 146 H Potassium Level 4.1 Chloride Level 103 Carbon Dioxide 33 H Level Anion Gap 10 Blood Urea 90 H Nitrogen Creatinine 1.86 H Est Glomerular Filtrat Rate mL/min Glucose Level 72 Calcium Level 8.6 Magnesium Level 3.0 H Iron Level 29 L Total Iron 255 Binding Capacity Percent Iron 11 L Saturation Ferritin 121.0 Total Bilirubin 0.3 Direct Bilirubin 0.00 Indirect 0.3 Bilirubin Aspartate Amino 140 #H Transf (AST/SGOT) Alanine 59 Aminotransferase (ALT/SGPT) Alkaline 133 H Phosphatase Creatine Kinase 36 Creatine Kinase 9.1 Index Creatinine Kinase 3.26 H MB (Mass) Troponin I 5.330 *H B-Type 01344 H Natriuretic Peptide Total Protein 7.2 Albumin 3.0 L Globulin 4.20 H Albumin/Globulin 0.71 Ratio Triglycerides 64 Level Cholesterol Level 91 L LDL Cholesterol, 38 # Calculated HDL Cholesterol 40 Cholesterol/HDL 2.2 Ratio Lab Scanned BLOOD TRANSFUSIO Report N Home Meds Reported Medications Levalbuterol Hcl* (Levalbuterol Hcl*) 0.63 Mg/3 Ml Vial.neb, 0.63 MG INHALATION QID PRN for WHEEZING AND SOB, VIAL 10/07/18 Acetaminophen* (Tylenol*) 325 Mg Tablet, 650 MG GTB Q6H PRN for MILD PAIN LEVEL 1-3, TAB FOR TEMP>100.5 10/07/18 Terazosin Hcl* (Terazosin Hcl*) 2 Mg Capsule, 2 MG GTB HS, CAP 10/07/18 Tamsulosin Hcl* (Tamsulosin Hcl*) 0.4 Mg Cap.er.24h, 0.4 MG GTB DAILY, CAP 10/07/18 Sennosides* (Senna Lax*) 8.6 Mg Tablet, 1 TAB GTB QHS, TAB 10/07/18 Hydrocodone/Acetaminophen ([place] 5-325 Tablet) 1 Each Tablet, 1 EACH GTB Q6H, TAB 10/07/18 [Nephro Vitamins ] No Conflict Check, 1 TAB GTB DAILY 10/07/18 Mirtazapine* (Mirtazapine*) 7.5 Mg Tablet, 7.5 MG GTB HS, TAB 10/07/18 Magnesium Hydroxide* (Milk Of Magnesia*) 400 Mg/5 Ml Oral.susp, 30 ML GTB Q24H for CONSTIPATION, ML 10/07/18 Metoprolol Tartrate* (Lopressor*) 25 Mg Tab, 25 MG GTB BID, #60 TAB HOLD FOR SBP<110 OR PULSE<60 10/07/18 Hydralazine Hcl* (Hydralazine Hcl*) 25 Mg Tab, 25 MG GTB Q8, #90 TAB HOLD FOR SBP<110 OR PULSE<60 10/07/18 Hydralazine Hcl* (Hydralazine Hcl*) 10 Mg Tablet, 10 MG GTB Q8 for FOR HTN FOR SBP<159, #90 TAB 10/07/18 Mineral Oil (Fleet Mineral Oil Enema) 133 Ml Enema, 133 ML RC Q 3 DAYS, ENEMA 10/07/18 Epoetin Hemant (Epogen) 10,000 Units/Ml Soln, 59758 UNITS SC Q MON,WED,FRI, VIAL 10/07/18 Bisacodyl* (Bisacodyl*) 10 Mg Supp, 10 MG OH Q24H for CONSTIPATION, SUPP 10/07/18 Docusate Sodium* (Colace*) 100 Mg Capsule, 100 MG GTB BID, #60 CAP 10/07/18 Allopurinol* (Allopurinol*) 300 Mg Tablet, 300 MG GTB DAILY, TAB 10/07/18 Alendronate Sodium* (Fosamax*) 70 Mg Tablet, 70 MG GTB Q SUN, #4 TAB 10/07/18 Acetaminophen* (Acetaminophen*) 325 Mg Tablet, 650 MG GTB DAILY PRN for PAIN AND OR ELEVATED TEMP, #30 TAB 30 MINS BEFORE TREATMENT. 10/07/18 Medications Current Medications IV Flush (NS 3 ml) 3 ml PER PROTOCOL IV ; Start 10/07/18 at 18:30 Ondansetron HCl (Zofran Inj) 4 mg Q6H PRN IV NAUSEA/VOMITING; Start 10/07/18 at 18:30 Acetaminophen (Tylenol Tab) 650 mg Q6H PRN PO .PAIN 1-3 OR TEMP; Start 10/07/18 at 18:30 Acetaminophen/ Hydrocodone Bitart ([place] (5/325)) 1 tab Q6H PRN PO .MOD PAIN 4- 6; Start 10/07/18 at 18:30 Morphine Sulfate (morphine) 2 mg Q4H PRN IV .SEVERE PAIN 7-10; Start 10/07/18 at 18:30 Docusate Sodium (Colace) 100 mg Q12H PRN PO .CONSTIPATION; Start 10/07/18 at 18:30 Magnesium Hydroxide (Milk Of Mag) 30 ml DAILY PRN PO .CONSTIPATION; Start 10/07/18 at 18:30 Famotidine (Pepcid Iv) 20 mg HS IV Last administered on 10/08/18at 21:21; Admin Dose 20 MG; Start 10/07/18 at 21:00 Sodium Chloride 1,000 ml @ 50 mls/hr Q20H IV Last administered on 10/08/18at 10:15; Admin Dose 50 MLS/HR; Start 10/07/18 at 18:27 Lorazepam (Ativan) 0.5 mg Q6H PRN IV ANXIETY; Start 10/07/18 at 18:30 Piperacillin Sod/ Tazobactam Sod 100 ml @ 200 mls/hr Q6 IVPB Last administered on 10/09/18at 05:31; Admin Dose 200 MLS/HR; Start 10/08/18 at 00:00 Vancomycin HCl (Vanco Iv Per Pharmacy) VANCOMYCIN PER PHARMACY NOTE XX ; Start 10/07/18 at 18:30 Hydralazine HCl (Apresoline) 10 mg Q6H PRN IV ELEVATED BLOOD PRESSURE; Start 10/07/18 at 18:30 Nitroglycerin (Nitroglycerin (Sl Tab) 0.4 Mg) 1 tab Q5M PRN SL ANGINA; Start 10/07/18 at 18:30 Levalbuterol (Xopenex Neb) 0.63 mg QID RESP THERAPY PRN INH WHEEZING AND SOB; Start 10/07/18 at 18:30 Magnesium Hydroxide (Milk Of Mag) 30 ml Q24H GTB Last administered on 10/08/18at 17:24; Admin Dose 30 ML; Start 10/07/18 at 18:30 Norepinephrine 32 mg/Dextrose 250 ml @ 0.47 mls/hr TITRATE IV Last administered on 10/07/18 21:19; Admin Dose 9.38 MLS/HR; Start 10/07/18 at 18:30 Epoetin Hemant (Epogen (Esrd)) 10,000 units TuThSa@17 SC Last administered on 10/08/18 16:17; Admin Dose 10,000 UNITS; Start 10/08/18 at 17:00 Aspirin (Aspirin) 81 mg DAILY GTB Last administered on 10/08/18at 09:30; Admin Dose 81 MG; Start 10/08/18 at 09:30 Atorvastatin Calcium (Lipitor) 40 mg HS GTB Last administered on 10/08/18 21:21; Admin Dose 40 MG; Start 10/08/18 at 21:00 Miscellaneous Information (Pending Santyl Order For Wound Care) This patient an... PRN PRN XX WOUND CARE; Start 10/08/18 at 12:00 Vancomycin HCl 1.25 gm/Sodium Chloride 250 ml @ 83.333 mls/ hr Q36H IVPB Last administered on 10/08/18at 18:10; Admin Dose 83.333 MLS/HR; Start 10/08/18 at 18:00 Assessment/Plan Hospital Course (Demo Recall) Non-ST elevation myocardial infarction Lower extremity DVT on most likely PE given dilated right ventricle Shock : septic Sepsis and bacteremia Hypoxemic respiratory failure with tracheostomy vent dependent Reported history of congestive heart failure Reported history of possible cardiopulmonary arrest Severe anemia Encephalopathy /altered level of consciousness Dysphagia status post PEG placement History of bladder cancer Acute renal failure Recommendations: The start the patient on heparin drip for now given his DVT and likely PE We will monitor for any sign of bleeding. So far no active bleeding is noted Continue with the Levophed as needed to titrate blood pressure. We will try to titrate off if blood pressure remains stable Vent support will be managed as per pulmonary Continue statins Beta-rachael to be started once blood pressure is stable but currently patient remains hypotensive Follow-up with renal recommendations For now we will hold off on any aggressive procedures such as coronary angiogram given his multiple comorbidities Continue with ICU care More than35 minutes of critical care time was for management treatment of this critically ill patient excluding any procedures Thank you for his referral. We will continue to follow along with you KAILEE GILLIAM MD [facility] KAILEE GILLIAM MD Oct 09, 2018 07:36
[2018-10-09] MEDS ORDERED: HEPARIN 1000 UNITS/ML 10 ML INJ IV PRN ×2 (08:00)
[2018-10-09] MEDS: SOD CHLORIDE 0.45% 1,000 ML IV SCH (08:17)
[2018-10-09] MEDS: ASPIRIN 81 MG TAB GTB SCH (08:17)
[2018-10-09] MEDS ORDERED: HEPARIN 1000 UNITS/ML 10 ML INJ IV ONE (08:30)
[2018-10-09] MEDS: HEPARIN 25000 UNITS/250 ML 250 ML IV SCH (08:32)
--- NOTE | 2018-10-09 09:32 | CONS ---
Assessment/Plan Assessment/Plan Assessment/Plan 1. Acute renal failure sec to sepsis and hypotension now on less pressors, renal ultz>left K not vis 2. DVT noted and heparin started 3. Mild hypernatremia, IV modified, will not diurese as yet 4. Sepsis Consultation Date/Type/Reason Admit Date/Time Oct 07, 2018 at 18:23 Type of Consult Nephrology Date/Time of Note DATE: 10/09/18 TIME: 09:30 Subjective hx not possible: pt non-verbal Exam/Review of Systems Vital Signs Vitals Vital Signs Date Temp Pulse Resp B/P (MAP) Pulse Ox O2 O2 Flow FiO2 Time Delivery Rate 10/09/18 80 24 112/63 98 Mechanical 09:00 (79) Ventilator 10/09/18 30 07:56 10/09/18 97.8 07:00 10/07/18 10.0 17:59 Intake and Output 10/08/18 10/08/18 10/09/18 1515:00 23:00 07:00 IntakeIntake Total 894.09 ml 867.85 ml 651.28 ml OutputOutput Total 330 ml 505 ml 360 ml BalanceBalance 564.09 ml 362.85 ml 291.28 ml Exam Neck: No jvd Respiratory: clear to auscultation, diminished breath sounds; No wheezing Cardiovascular: regular rate and rhythm Gastrointestinal: soft Extremities: edema (sacral edema 2+) Labs Result Diagram: 10/09/18 0430 10/09/18 0430 Results 24hrs Laboratory Tests Test 10/08/18 09:40 10/08/18 14:11 10/08/18 21:18 10/09/18 04:30 Urine Random 38.35 Creatinine Urine Random 26 L Sodium Urine 1.64 Protein/Creatinin e Ratio Urine Total 63.0 H Protein Lactic Acid Level 1.3 Troponin I 9.790 *H 5.330 *H Hemoglobin 8.5 L 8.5 L Hematocrit 28.0 L 28.2 L White Blood Count 7.8 # Red Blood Count 3.16 L Mean Corpuscular 89.2 Volume Mean Corpuscular 26.9 L Hemoglobin Mean Corpuscular 30.1 L Hemoglobin Concen t Red Cell 16.6 H Distribution Width Platelet Count 102 L Mean Platelet 13.0 H Volume Immature 0.800 H Granulocytes % Neutrophils % 68.8 Lymphocytes % 14.0 L Monocytes % 11.6 H Eosinophils % 4.4 Basophils % 0.4 Nucleated Red 0.4 H Blood Cells % Immature 0.060 H Granulocytes # Neutrophils # 5.3 Lymphocytes # 1.1 Monocytes # 0.9 Eosinophils # 0.3 Basophils # 0.0 Nucleated Red 0.0 Blood Cells # Sodium Level 146 H Potassium Level 4.1 Chloride Level 103 Carbon Dioxide 33 H Level Anion Gap 10 Blood Urea 90 H Nitrogen Creatinine 1.86 H Est Glomerular Filtrat Rate mL/min Glucose Level 72 Calcium Level 8.6 Magnesium Level 3.0 H Iron Level 29 L Total Iron 255 Binding Capacity Percent Iron 11 L Saturation Ferritin 121.0 Total Bilirubin 0.3 Direct Bilirubin 0.00 Indirect 0.3 Bilirubin Aspartate Amino 140 #H Transf (AST/SGOT) Alanine 59 Aminotransferase (ALT/SGPT) Alkaline 133 H Phosphatase Creatine Kinase 36 Creatine Kinase 9.1 Index Creatinine Kinase 3.26 H MB (Mass) B-Type 21699 H Natriuretic Peptide Total Protein 7.2 Albumin 3.0 L Globulin 4.20 H Albumin/Globulin 0.71 Ratio Triglycerides 64 Level Cholesterol Level 91 L LDL Cholesterol, 38 # Calculated HDL Cholesterol 40 Cholesterol/HDL 2.2 Ratio Test 10/09/18 05:11 Lab Scanned BLOOD TRANSFUSIO Report N Medications Medications Current Medications IV Flush (NS 3 ml) 3 ml PER PROTOCOL IV ; Start 10/07/18 at 18:30 Ondansetron HCl (Zofran Inj) 4 mg Q6H PRN IV NAUSEA/VOMITING; Start 10/07/18 at 18:30 Acetaminophen (Tylenol Tab) 650 mg Q6H PRN PO .PAIN 1-3 OR TEMP; Start 10/07/18 at 18:30 Acetaminophen/ Hydrocodone Bitart ([place] (5/325)) 1 tab Q6H PRN PO .MOD PAIN 4- 6; Start 10/07/18 at 18:30 Morphine Sulfate (morphine) 2 mg Q4H PRN IV .SEVERE PAIN 7-10; Start 10/07/18 at 18:30 Docusate Sodium (Colace) 100 mg Q12H PRN PO .CONSTIPATION; Start 10/07/18 at 18:30 Magnesium Hydroxide (Milk Of Mag) 30 ml DAILY PRN PO .CONSTIPATION; Start 10/07/18 at 18:30 Famotidine (Pepcid Iv) 20 mg HS IV Last administered on 10/08/18 21:21; Admin Dose 20 MG; Start 10/07/18 at 21:00 Sodium Chloride 1,000 ml @ 50 mls/hr Q20H IV Last administered on 10/09/18 08:17; Admin Dose 50 MLS/HR; Start 10/07/18 at 18:27 Lorazepam (Ativan) 0.5 mg Q6H PRN IV ANXIETY; Start 10/07/18 at 18:30 Piperacillin Sod/ Tazobactam Sod 100 ml @ 200 mls/hr Q6 IVPB Last administered on 10/09/18 05:31; Admin Dose 200 MLS/HR; Start 10/08/18 at 00:00 Vancomycin HCl (Vanco Iv Per Pharmacy) VANCOMYCIN PER PHARMACY NOTE XX ; Start 10/07/18 at 18:30 Hydralazine HCl (Apresoline) 10 mg Q6H PRN IV ELEVATED BLOOD PRESSURE; Start 10/07/18 at 18:30 Nitroglycerin (Nitroglycerin (Sl Tab) 0.4 Mg) 1 tab Q5M PRN SL ANGINA; Start 10/07/18 at 18:30 Levalbuterol (Xopenex Neb) 0.63 mg QID RESP THERAPY PRN INH WHEEZING AND SOB; Start 10/07/18 at 18:30 Magnesium Hydroxide (Milk Of Mag) 30 ml Q24H GTB Last administered on 10/08/18at 17:24; Admin Dose 30 ML; Start 10/07/18 at 18:30 Norepinephrine 32 mg/Dextrose 250 ml @ 0.47 mls/hr TITRATE IV Last administered on 10/07/18 21:19; Admin Dose 9.38 MLS/HR; Start 10/07/18 at 18:30 Epoetin Hemant (Epogen (Esrd)) 10,000 units TuThSa@17 SC Last administered on 10/08/18 16:17; Admin Dose 10,000 UNITS; Start 10/08/18 at 17:00 Aspirin (Aspirin) 81 mg DAILY GTB Last administered on 10/09/18 08:17; Admin Dose 81 MG; Start 10/08/18 at 09:30 Atorvastatin Calcium (Lipitor) 40 mg HS GTB Last administered on 10/08/18 21:21; Admin Dose 40 MG; Start 10/08/18 at 21:00 Miscellaneous Information (Pending Santyl Order For Wound Care) This patient an... PRN PRN XX WOUND CARE; Start 10/08/18 at 12:00 Vancomycin HCl 1.25 gm/Sodium Chloride 250 ml @ 83.333 mls/ hr Q36H IVPB Last administered on 10/08/18at 18:10; Admin Dose 83.333 MLS/HR; Start 10/08/18 at 18:00 Heparin Sodium (Porcine) (Heparin (1000 Units/ml)) 7,300 unit PER PROTOCOL PRN IV aPTT<47; Start 10/09/18 at 08:00 Heparin Sodium (Porcine) (Heparin (1000 Units/ml)) 3,600 unit PER PROTOCOL PRN IV aPTT<47-57; Start 10/09/18 at 08:00 Heparin Sodium (Porcine) 250 ml @ 16.4 mls/hr PER PROTOCOL IV Last administered on 10/09/18at 08:32; Admin Dose 16.4 MLS/HR; Start 10/09/18 at 08:30 ANIBAL SHANNON MD Oct 09, 2018 09:32
[2018-10-09] MEDS: DEXTROSE 5% 1,000 ML IV SCH (09:40)
--- NOTE | 2018-10-09 09:45 | CONS ---
Assessment/Plan Assessment/Plan Assessment/Plan (Daily) Lower extremity ultrasound is positive for left femoral vein and popliteal vein DVT. Ventilator setting; AC of 12, tidal volume 500, PEEP of 5, 35% FiO2. Patient is currently on IV heparin by protocol and Levophed 2 mics per minute. Assessment and recommendations; 1. Patient with history of VD RF and history of prior CPR admitted for sepsis with acute encephalopathy with significant improvement in mental status. 2. Gram-positive bacteremia, currently on appropriate antimicrobial regimen. 3. History of gout 4. Mild chronic renal insufficiency. 5. Improving hypotension. 6. Stage II sacral ulcer. 7. Anemia and significant thrombocytopenia. Continue current supportive care. Monitor H&H and reticulocyte count. Obtain follow-up chest x-ray 24 hours. Wean down pressor support as tolerated. 35 minutes of critical care time was spent evaluating the patient. Consultation Date/Type/Reason Admit Date/Time Oct 07, 2018 at 18:23 Initial Consult Date 10/08/18 Type of Consult Pulmonary/critical care Pulmonary consult requested for evaluation of chronic respiratory failure, patient admitted for sepsis. Patient is a 88-year-old male transferred from residential with apparently altered mental status. Upon further evaluation patient was found to be severely septic as well as hypotensive. Patient also has significant elevation in troponins. Patient apparently has history of advanced dementia and was himself unable to give any history whatsoever. But according to medical record patient at the nursing facility was able to have pured diet and was somewhat communicative. By the time I saw the patient, patient is on ventilator via tracheostomy and is unresponsive. Patient however did not appear to be in any distress. Past medical history; 1. VDR F 2. History of bladder cancer. 3. Likely chronic renal insufficiency. 4. History of bullous pemphigoid. 5. Likely chronic type II respiratory failure. 6. History of cardiac arrest status post CPR in the past. 7. Gout 8. Status post tracheostomy and G-tube. Medications; reviewed. Allergies; shellfish. Family history, social history, occupational history is not available. Review of system; unable to be obtained. General exam; elderly male, on ventilator via tracheostomy, unresponsive, currently in no distress. Requesting Provider: ANGEL PALMA Date/Time of Note DATE: 10/09/18 TIME: 09:42 24 HR Interval Summary Free Text/Dictation Patient's condition is improving but still remains critical. On low-dose pressor support. General exam; elderly male, on ventilator via tracheostomy, awake and appropriately responsive. Currently no distress. Exam/Review of Systems Exam Vitals Vital Signs Date Temp Pulse Resp B/P (MAP) Pulse Ox O2 O2 Flow FiO2 Time Delivery Rate 10/09/18 80 24 112/63 98 Mechanical 09:00 (79) Ventilator 10/09/18 30 07:56 10/09/18 97.8 07:00 10/07/18 10.0 17:59 Intake and Output 10/08/18 10/08/18 10/09/18 1515:00 23:00 07:00 IntakeIntake Total 894.09 ml 867.85 ml 651.28 ml OutputOutput Total 330 ml 505 ml 360 ml BalanceBalance 564.09 ml 362.85 ml 291.28 ml Exam H HEENT exam; supple neck, no JVD. No lymphadenopathy. Midline trachea. No thyromegaly. Tracheostomy in place. Insertion site is clean. Patient has fair dentition. No neck masses. Chest exam; diminished but clear breath sounds. S1-S2 audible, no murmurs. Regular rhythm. Abdomen exam; soft, no organomegaly. G-tube in place. Bowel sounds audible. Nontender. Extremity exam; trace edema. 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 Results Result Diagram: 10/09/18 0430 10/09/18 0430 Results 24hrs Laboratory Tests Test 10/08/18 14:11 10/08/18 21:18 10/09/18 04:30 10/09/18 05:11 Lactic Acid Level 1.3 Troponin I 9.790 *H 5.330 *H Hemoglobin 8.5 L 8.5 L Hematocrit 28.0 L 28.2 L White Blood Count 7.8 # Red Blood Count 3.16 L Mean Corpuscular 89.2 Volume Mean Corpuscular 26.9 L Hemoglobin Mean Corpuscular 30.1 L Hemoglobin Concen t Red Cell 16.6 H Distribution Width Platelet Count 102 L Mean Platelet 13.0 H Volume Immature 0.800 H Granulocytes % Neutrophils % 68.8 Lymphocytes % 14.0 L Monocytes % 11.6 H Eosinophils % 4.4 Basophils % 0.4 Nucleated Red 0.4 H Blood Cells % Immature 0.060 H Granulocytes # Neutrophils # 5.3 Lymphocytes # 1.1 Monocytes # 0.9 Eosinophils # 0.3 Basophils # 0.0 Nucleated Red 0.0 Blood Cells # Sodium Level 146 H Potassium Level 4.1 Chloride Level 103 Carbon Dioxide 33 H Level Anion Gap 10 Blood Urea 90 H Nitrogen Creatinine 1.86 H Est Glomerular Filtrat Rate mL/min Glucose Level 72 Calcium Level 8.6 Magnesium Level 3.0 H Iron Level 29 L Total Iron 255 Binding Capacity Percent Iron 11 L Saturation Ferritin 121.0 Total Bilirubin 0.3 Direct Bilirubin 0.00 Indirect 0.3 Bilirubin Aspartate Amino 140 #H Transf (AST/SGOT) Alanine 59 Aminotransferase (ALT/SGPT) Alkaline 133 H Phosphatase Creatine Kinase 36 Creatine Kinase 9.1 Index Creatinine Kinase 3.26 H MB (Mass) B-Type 24538 H Natriuretic Peptide Total Protein 7.2 Albumin 3.0 L Globulin 4.20 H Albumin/Globulin 0.71 Ratio Triglycerides 64 Level Cholesterol Level 91 L LDL Cholesterol, 38 # Calculated HDL Cholesterol 40 Cholesterol/HDL 2.2 Ratio Lab Scanned BLOOD TRANSFUSIO Report N Medications Medication Current Medications IV Flush (NS 3 ml) 3 ml PER PROTOCOL IV ; Start 10/07/18 at 18:30 Ondansetron HCl (Zofran Inj) 4 mg Q6H PRN IV NAUSEA/VOMITING; Start 10/07/18 at 18:30 Acetaminophen (Tylenol Tab) 650 mg Q6H PRN PO .PAIN 1-3 OR TEMP; Start 10/07/18 at 18:30 Acetaminophen/ Hydrocodone Bitart ([place] (5/325)) 1 tab Q6H PRN PO .MOD PAIN 4- 6; Start 10/07/18 at 18:30 Morphine Sulfate (morphine) 2 mg Q4H PRN IV .SEVERE PAIN 7-10; Start 10/07/18 at 18:30 Docusate Sodium (Colace) 100 mg Q12H PRN PO .CONSTIPATION; Start 10/07/18 at 18:30 Magnesium Hydroxide (Milk Of Mag) 30 ml DAILY PRN PO .CONSTIPATION; Start 10/07/18 at 18:30 Famotidine (Pepcid Iv) 20 mg HS IV Last administered on 10/08/18at 21:21; Admin Dose 20 MG; Start 10/07/18 at 21:00 Lorazepam (Ativan) 0.5 mg Q6H PRN IV ANXIETY; Start 10/07/18 at 18:30 Piperacillin Sod/ Tazobactam Sod 100 ml @ 200 mls/hr Q6 IVPB Last administered on 10/09/18at 05:31; Admin Dose 200 MLS/HR; Start 10/08/18 at 00:00 Vancomycin HCl (Vanco Iv Per Pharmacy) VANCOMYCIN PER PHARMACY NOTE XX ; Start 10/07/18 at 18:30 Hydralazine HCl (Apresoline) 10 mg Q6H PRN IV ELEVATED BLOOD PRESSURE; Start 10/07/18 at 18:30 Nitroglycerin (Nitroglycerin (Sl Tab) 0.4 Mg) 1 tab Q5M PRN SL ANGINA; Start 10/07/18 at 18:30 Levalbuterol (Xopenex Neb) 0.63 mg QID RESP THERAPY PRN INH WHEEZING AND SOB; Start 10/07/18 at 18:30 Magnesium Hydroxide (Milk Of Mag) 30 ml Q24H GTB Last administered on 10/08/18at 17:24; Admin Dose 30 ML; Start 10/07/18 at 18:30 Norepinephrine 32 mg/Dextrose 250 ml @ 0.47 mls/hr TITRATE IV Last administered on 10/07/18at 21:19; Admin Dose 9.38 MLS/HR; Start 10/07/18 at 18:30 Epoetin Hemant (Epogen (Esrd)) 10,000 units TuThSa@17 SC Last administered on 10/08/18at 16:17; Admin Dose 10,000 UNITS; Start 10/08/18 at 17:00 Aspirin (Aspirin) 81 mg DAILY GTB Last administered on 10/09/18at 08:17; Admin Dose 81 MG; Start 10/08/18 at 09:30 Atorvastatin Calcium (Lipitor) 40 mg HS GTB Last administered on 10/08/18at 21:21; Admin Dose 40 MG; Start 10/08/18 at 21:00 Miscellaneous Information (Pending [facility] Order For Wound Care) This patient an... PRN PRN XX WOUND CARE; Start 10/08/18 at 12:00 Vancomycin HCl 1.25 gm/Sodium Chloride 250 ml @ 83.333 mls/ hr Q36H IVPB Last administered on 10/08/18at 18:10; Admin Dose 83.333 MLS/HR; Start 10/08/18 at 18: 00 Heparin Sodium (Porcine) (Heparin (1000 Units/ml)) 7,300 unit PER PROTOCOL PRN IV aPTT<47; Start 10/09/18 at 08:00 Heparin Sodium (Porcine) (Heparin (1000 Units/ml)) 3,600 unit PER PROTOCOL PRN IV aPTT<47-57; Start 10/09/18 at 08:00 Heparin Sodium (Porcine) 250 ml @ 16.4 mls/hr PER PROTOCOL IV Last administered on 10/09/18at 08:32; Admin Dose 16.4 MLS/HR; Start 10/09/18 at 08:30 Dextrose 1,000 ml @ 80 mls/hr [id number] IV ; Start 10/09/18 at 09:30 MIGUEL MYLES Oct 09, 2018 09:45
--- NOTE | 2018-10-09 10:50 | PDOCDIS ---
Discharge Instructions CONDITION [id number] Patient Condition: [id number] ANGEL Giles Oct 09, 2018 10:50
--- NOTE | 2018-10-09 10:58 | DS ---
Date/Time of Note Date/Time of Note DATE: 10/09/18 TIME: 10:50 Discharge Summary Admission/Discharge Info Admit Date/Time Oct 07, 2018 at 18:23 Discharge Date/Time Discharge Diagnosis 1. Septic shock- again likely secondary to Jeannie urinary tract infection and staph bacteremia - patient also has superficial stage II sacral ulcer; blood culture positive for gram-positive cocci. Still on levo fed. -Continue pressor support, broad spectrum antibiotics. - Follow up final culture results. -Continue Tylenol p.r.n. pain and fevers. Lactic acid is trending down now, consider ID consult. 2. Respiratory distress again with hypoxia- history of tracheostomy placement in the past. Signs of likely pneumonia presently. -Follow-up recommendations pulmonary consult for vent management. - Continue broad spectrum antibiotics, treat possible upper respiratory infection. - Keep the O2 sats greater than 92%. DuoNeb p.r.n. 3. Elevated troponins -signs of non-ST elevation NV. -Per discussion with cardiology team, medical management for now. Avoiding anticoagulation at the present time secondary to severe anemia -Continue aspirin, Lipitor for now. Beta-rachael to be initiated when blood pressure more stable -Follow-up results of stool occult test and because hemoglobin today is in the low to mid 7 range, will order for 2 units PRBC transfusion as well -Follow-up results of BNP levels and echo results 4. Renal insufficiency-patient presented with BUN is elevated at 84, creatinine is 1.46, which according to renal team is above his baseline. Symptoms likely secondary to sepsis and hypotension. -For now continue low-dose IV fluids -Follow-up renal recommendations including renal ultrasound results 5. History of prior cardiac arrest. Continue to monitor for now. Follow cardiology recommendations. 6. History of pressure [id number] recommendations from wound care nurse phil hall. 7. History of gout. Continue to monitor for now. 8. History of dysphagia- -follow-up recommendations from speech therapy evaluation. -Continue G-tube feeds as tolerated. 9. History of congestive heart failure-again, follow-up results of ech ocardiogram, cardiology consult recommendations 10. History of prostate and bladder cancer. Monitor for now. 11. DVT - involving the left mid and distal femoral veins and left popliteal vein. Patient Condition: Critical Hx of Present Illness 88-year-old male with past medical history based on records of prior cardiac arrest, chronic respiratory failure with tracheostomy placement in the past, CHF, pressure ulcer, hypertension, dysphagia, bullous pemphigoid, gout, prostate cancer, bladder cancer, history of G-tube placement. Most of the information is obtained from the ER documentation as the patient is unable to provide full HPI at this time. When the patient arrived, he was found to be hypoxic and had altered level of consciousness. The symptoms apparently occurred about 1 hour prior to arrival. When he arrived, he was found hemoglobin of 7.2. His lactic acid was elevated at 6.6. He also had elevated troponin of 0.251, also creatinine of 1.46 elevation and he was hypotensive and signs of septic shock likely secondary to UTI as his UA was positive as well for infection and he also has moderate pulmonary vascular congestion, cannot rule out upper respiratory infection as well and patient was given broad spectrum antibiotics and was started on Levophed in the ER that he is presently on. Full review of systems cannot be obtained at this time. Hospital Course Patient was admitted to intensive care unit. Seen by cardiology, renal, pulmonary teams during this hospital stay. Patient placed on pressor support. Patient found with non-ST elevation NV and anemia. Patient received blood transfusion first, then the next day start on heparin drip. This was also because the patient was found with DVT - involving the left mid and distal femoral veins and left popliteal vein. Stool occult test was ordered and is results still pending. Regarding the patient septic shock, patient found with Jeannie UTI and staph aureus bacteremia 2 out of 2 bottles, both the likely source of his septic shock. Patient placed on appropriate antibiotics and antifungal medications for this. Patient also treated for renal insufficiency and these symptoms likely secondary to sepsis and hypotension. Patient seen by renal team for that and treated medically. Patient seen by wound nurse for the ulcer found, and continued on tube feeding via PEG with the patient only has been placed. Patient also continued on mechanical ventilation via tracheostomy which the patient has already had in place before admission. Because of the patient's insurance, he will be transferred to appropriate hospital that accepts his insurance. See printed medical reconciliation sheet for full list of discharge medications. Home Meds Reported Medications Levalbuterol Hcl* (Levalbuterol Hcl*) 0.63 Mg/3 Ml Vial.neb, 0.63 MG INHALATION QID PRN for WHEEZING AND SOB, VIAL 10/07/18 Acetaminophen* (Tylenol*) 325 Mg Tablet, 650 MG GTB Q6H PRN for MILD PAIN LEVEL 1-3, TAB FOR TEMP>100.5 10/07/18 Terazosin Hcl* (Terazosin Hcl*) 2 Mg Capsule, 2 MG GTB HS, CAP 10/07/18 Tamsulosin Hcl* (Tamsulosin Hcl*) 0.4 Mg Cap.er.24h, 0.4 MG GTB DAILY, CAP 10/07/18 Sennosides* (Senna Lax*) 8.6 Mg Tablet, 1 TAB GTB QHS, TAB 10/07/18 Hydrocodone/Acetaminophen ([place] 5-325 Tablet) 1 Each Tablet, 1 EACH GTB Q6H, TAB 10/07/18 [Nephro Vitamins ] No Conflict Check, 1 TAB GTB DAILY 10/07/18 Mirtazapine* (Mirtazapine*) 7.5 Mg Tablet, 7.5 MG GTB HS, TAB 10/07/18 Magnesium Hydroxide* (Milk Of Magnesia*) 400 Mg/5 Ml Oral.susp, 30 ML GTB Q24H for CONSTIPATION, ML 10/07/18 Metoprolol Tartrate* (Lopressor*) 25 Mg Tab, 25 MG GTB BID, #60 TAB HOLD FOR SBP<110 OR PULSE<60 10/07/18 Hydralazine Hcl* (Hydralazine Hcl*) 25 Mg Tab, 25 MG GTB Q8, #90 TAB HOLD FOR SBP<110 OR PULSE<60 10/07/18 Hydralazine Hcl* (Hydralazine Hcl*) 10 Mg Tablet, 10 MG GTB Q8 for FOR HTN FOR SBP<159, #90 TAB 10/07/18 Mineral Oil ([place]leet Mineral Oil Enema) 133 Ml Enema, 133 ML RC Q 3 DAYS, ENEMA 10/07/18 Epoetin Hemant (Epogen) 10,000 Units/Ml Soln, 18157 UNITS SC Q MON,WED,FRI, VIAL 10/07/18 Bisacodyl* (Bisacodyl*) 10 Mg Supp, 10 MG MO Q24H for CONSTIPATION, SUPP 10/07/18 Docusate Sodium* (Colace*) 100 Mg Capsule, 100 MG GTB BID, #60 CAP 10/07/18 Allopurinol* (Allopurinol*) 300 Mg Tablet, 300 MG GTB DAILY, TAB 10/07/18 Alendronate Sodium* (Fosamax*) 70 Mg Tablet, 70 MG GTB Q SUN, #4 TAB 10/07/18 Acetaminophen* (Acetaminophen*) 325 Mg Tablet, 650 MG GTB DAILY PRN for PAIN AND OR ELEVATED TEMP, #30 TAB 30 MINS BEFORE TREATMENT. 10/07/18 Primary Care Provider Care Physician No Primary Time spent on discharge: > 30 minutes Pending Labs Laboratory Tests Test 10/08/18 14:11 10/08/18 21:18 10/09/18 04:30 10/09/18 05:11 Lactic Acid 1.3 Level mmol/L (0.5-2.0 ) Troponin I 9.790 5.330 ng/ml (0.000-0. ng/ml (0.000-0 120) .120) Hemoglobin 8.5 8.5 g/dl (14.0-18. g/dl (14.0-18. 0) 0) Hematocrit 28.0 28.2 % (42.0-52.0) % (42.0-52.0) White Blood 7.8 Count 10^3/ul (4.8-1 0.8) Red Blood 3.16 Count 10^6/ul (4.70- 6.10) Mean 89.2 Corpuscular fl (82.0-101.0 Volume ) Mean 26.9 Corpuscular pg (29.0-33.0) Hemoglobin Mean 30.1 Corpuscular g/dl (32.0-37. Hemoglobin Conc 0) ent Red Cell 16.6 Distribution % (11.5-14.5) Width Platelet Count 102 10^3/UL (140-4 15) Mean Platelet 13.0 Volume fl (7.4-10.4) Immature 0.800 Granulocytes % % (0.001-0.429 ) Neutrophils % 68.8 % (39.0-77.0) Lymphocytes % 14.0 % (15.0-51.0) Monocytes % 11.6 % (0.0-11.0) Eosinophils % 4.4 % (0.0-7.0) Basophils % 0.4 % (0.0-2.0) Nucleated Red 0.4 Blood Cells % /100WBC (0.0-0 .0) Immature 0.060 Granulocytes # 10^3/ul (0.0-0 .031) Neutrophils # 5.3 10^3/ul (1.6-7 .5) Lymphocytes # 1.1 10^3/ul (0.8-2 .9) Monocytes # 0.9 10^3/ul (0.3-0 .9) Eosinophils # 0.3 10^3/ul (0.0-0 .5) Basophils # 0.0 10^3/ul (0.0-0 .1) Nucleated Red 0.0 Blood Cells # 10^3/ul (0.0-0 .0) Sodium Level 146 mmol/L (135-14 4) Potassium 4.1 Level mmol/L (3.5-5. 1) Chloride Level 103 mmol/L (97-110 ) Carbon Dioxide 33 Level mmol/L (21-31) Anion Gap 10 (5-13) Blood Urea 90 Nitrogen mg/dl (7-20) Creatinine 1.86 mg/dl (0.61-1. 24) Est Glomerular mL/min (>60) Filtrat Rate mL/min Glucose Level 72 mg/dl (70-220) Calcium Level 8.6 mg/dl (8.4-10. 2) Magnesium 3.0 Level mg/dl (1.7-2.5 ) Iron Level 29 ug/dl (35-150) Total Iron 255 Binding ug/dl (241-421 Capacity ) Percent Iron 11 % Saturation SAT (22-52) Ferritin 121.0 ng/ml (11.1-26 4.0) Total 0.3 Bilirubin mg/dl (0.2-1.3 ) Direct 0.00 Bilirubin mg/dl (0.00-0. 20) Indirect 0.3 Bilirubin mg/dl (0-1.1) Aspartate Amino 140 Transf (AST/SGO IU/L (15-46) T) Alanine 59 Aminotransferas IU/L (13-69) e (ALT/SGPT) Alkaline 133 Phosphatase IU/L (42-121) Creatine 36 Kinase IU/L (23-200) Creatine Kinase 9.1 Index Creatinine 3.26 Kinase MB ng/ml (0.0-2.4 (Mass) ) B-Type 70581 Natriuretic PG/ML (0-450) Peptide Total Protein 7.2 g/dl (6.1-8.1) Albumin 3.0 g/dl (3.3-4.9) Globulin 4.20 g/dl (1.3-3.2) Albumin/Globuli 0.71 n Ratio Triglycerides 64 Level mg/dl (0-149) Cholesterol 91 Level mg/dl (100-200 ) LDL 38 mg/dl Cholesterol, Calculated HDL 40 Cholesterol mg/dl (31-75) Cholesterol/HDL 2.2 RATIO Ratio Lab Scanned BLOOD TRANSFUS Report ANGLE RABAGO. Oct 09, 2018 10:57
[2018-10-09] MEDS: FLUCONAZOLE 200 MG (PMX) 100 ML IVPB SCH (12:12)
[2018-10-09] MEDS: MAGNESIUM HYDROXIDE 30ML CUP GTB SCH (17:27)
[2018-10-09] MEDS: ATORVASTATIN 40 MG TAB GTB SCH (21:14)
[2018-10-09] MEDS: FAMOTIDINE 20 MG INJ IV SCH (21:14)
[2018-10-09] MEDS: NYSTATIN 30 GM POWDER BTL TOP SCH (21:40)
[2018-10-10] VITALS (28 sets, daily range): BP systolic 109–127; BP diastolic 69–85; PULSE 72–82; RESP 6–21
[2018-10-10] MEDS: BALSAM PERU/CASTOR OIL 60 GM TUBE TOP SCH ×2 (00:12→10:39)
[2018-10-10] MEDS: DEXTROSE 5% 1,000 ML IV SCH ×2 (00:12→10:39)
[2018-10-10] MEDS: PIPER-TAZO 3.375 GM IV (PMX) 100 ML IVPB SCH ×4 (00:15→17:35)
[2018-10-10] MEDS: VANCOMYCIN HCL 1.25 GM in SOD CHLORIDE 0.9% 250 ML IVPB SCH (05:26)
[2018-10-10] MEDS: HEPARIN 25000 UNITS/250 ML 250 ML IV SCH (05:38)
[2018-10-10] MEDS ORDERED: POTASSIUM CHLORIDE 100 ML IVPB ONE (07:30)
[2018-10-10] MEDS ORDERED: FUROSEMIDE 40 MG INJ IV ONE (07:30)
--- NOTE | 2018-10-10 07:35 | CONS ---
Assessment/Plan Assessment/Plan Assessment/Plan 1. Septic shock resolving, now off pressors with acute renal failure improving. 2. Volume overload, will attempt to diurese 3. Hypernatremia, will inc D5W 4. Abnl liver tests sec to #1, Abd us orderd 5. DVT on Heparin. Consultation Date/Type/Reason Admit Date/Time Oct 07, 2018 at 18:23 Type of Consult Nephrology Date/Time of Note DATE: 10/10/18 TIME: 07:33 Subjective hx not possible: pt non-verbal Exam/Review of Systems Vital Signs Vitals Vital Signs Date Temp Pulse Resp B/P (MAP) Pulse Ox O2 O2 Flow FiO2 Time Delivery Rate 10/10/18 77 18 117/70 100 Mechanical 06:00 (86) Ventilator 10/10/18 35 05:10 10/10/18 98.6 04:00 10/07/18 10.0 17:59 Intake and Output 10/09/18 10/09/18 10/10/18 1515:00 23:00 07:00 IntakeIntake Total 864.96 ml 700.5 ml 923.333 ml OutputOutput Total 370 ml 535 ml 500 ml BalanceBalance 494.96 ml 165.5 ml 423.333 ml Exam Neck: No jvd Respiratory: diminished breath sounds; No crackles/rales Cardiovascular: regular rate and rhythm Gastrointestinal: soft Extremities: No edema (sacral 3+, trace-1+ pedal edema) Labs Result Diagram: 10/10/18 0434 10/10/18 0434 Results 24hrs Laboratory Tests Test 10/09/18 14:17 10/09/18 16:40 10/09/18 19:13 10/10/18 03:14 Activated > 180.0 *H 165.1 *H 46.4 H 101.8 *H Partial Thrombopl ast Time Test 10/10/18 04:34 10/10/18 05:17 White Blood Count 4.9 # Red Blood Count 3.04 L Hemoglobin 8.1 L Hematocrit 27.6 L Mean Corpuscular 90.8 Volume Mean Corpuscular 26.6 L Hemoglobin Mean Corpuscular 29.3 L Hemoglobin Concen t Red Cell 16.8 H Distribution Width Platelet Count 110 L Mean Platelet 12.7 H Volume Immature 0.400 Granulocytes % Neutrophils % 63.6 Lymphocytes % 16.0 Monocytes % 12.3 H Eosinophils % 7.5 H Basophils % 0.2 Nucleated Red 0.0 Blood Cells % Immature 0.020 Granulocytes # Neutrophils # 3.1 Lymphocytes # 0.8 Monocytes # 0.6 Eosinophils # 0.4 Basophils # 0.0 Nucleated Red 0.0 Blood Cells # Prothrombin Time 16.4 H Prothrombin Time 1.3 Ratio INR International 1.31 Normalized Ratio Sodium Level 147 H Potassium Level 3.9 Chloride Level 104 Carbon Dioxide 33 H Level Anion Gap 10 Blood Urea 79 H Nitrogen Creatinine 1.73 H Est Glomerular Filtrat Rate mL/min Glucose Level 91 Calcium Level 8.6 Magnesium Level 3.2 H Total Bilirubin 0.2 Direct Bilirubin 0.00 Indirect 0.2 Bilirubin Aspartate Amino 272 #H Transf (AST/SGOT) Alanine 141 H Aminotransferase (ALT/SGPT) Alkaline 125 H Phosphatase B-Type 68552 H Natriuretic Peptide Total Protein 7.1 Albumin 3.0 L Globulin 4.10 H Albumin/Globulin 0.73 Ratio Lab Scanned BLOOD TRANSFUSIO Report N Medications Medications Current Medications IV Flush (NS 3 ml) 3 ml PER PROTOCOL IV ; Start 10/07/18 at 18:30 Ondansetron HCl (Zofran Inj) 4 mg Q6H PRN IV NAUSEA/VOMITING; Start 10/07/18 at 18:30 Acetaminophen (Tylenol Tab) 650 mg Q6H PRN PO .PAIN 1-3 OR TEMP; Start 10/07/18 at 18:30 Acetaminophen/ Hydrocodone Bitart ([place] (5/325)) 1 tab Q6H PRN PO .MOD PAIN 4- 6; Start 10/07/18 at 18:30 Morphine Sulfate (morphine) 2 mg Q4H PRN IV .SEVERE PAIN 7-10; Start 10/07/18 at 18:30 Docusate Sodium (Colace) 100 mg Q12H PRN PO .CONSTIPATION; Start 10/07/18 at 18:30 Magnesium Hydroxide (Milk Of Mag) 30 ml DAILY PRN PO .CONSTIPATION; Start 10/07/18 at 18:30 Famotidine (Pepcid Iv) 20 mg HS IV Last administered on 10/09/18at 21:14; Admin Dose 20 MG; Start 10/07/18 at 21:00 Lorazepam (Ativan) 0.5 mg Q6H PRN IV ANXIETY; Start 10/07/18 at 18:30 Piperacillin Sod/ Tazobactam Sod 100 ml @ 200 mls/hr Q6 IVPB Last administered on 10/10/18 05:26; Admin Dose 200 MLS/HR; Start 10/08/18 at 00:00 Vancomycin HCl (Vanco Iv Per Pharmacy) VANCOMYCIN PER PHARMACY NOTE XX ; Start 10/07/18 at 18:30 Hydralazine HCl (Apresoline) 10 mg Q6H PRN IV ELEVATED BLOOD PRESSURE; Start 10/07/18 at 18:30 Nitroglycerin (Nitroglycerin (Sl Tab) 0.4 Mg) 1 tab Q5M PRN SL ANGINA; Start at 18:30 Levalbuterol (Xopenex Neb) 0.63 mg QID RESP THERAPY PRN INH WHEEZING AND SOB; Start 10/07/18 at 18:30 Magnesium Hydroxide (Milk Of Mag) 30 ml Q24H GTB Last administered on 10/09/18at 17:27; Admin Dose 30 ML; Start 10/07/18 at 18:30 Norepinephrine 32 mg/Dextrose 250 ml @ 0.47 mls/hr TITRATE IV Last administered on 10/07/18at 21:19; Admin Dose 9.38 MLS/HR; Start 10/07/18 at 18:30 Epoetin Hemant (Epogen (Esrd)) 10,000 units TuThSa@17 SC Last administered on 10/08/18at 16:17; Admin Dose 10,000 UNITS; Start 10/08/18 at 17:00 Aspirin (Aspirin) 81 mg DAILY GTB Last administered on 10/09/18at 08:17; Admin Dose 81 MG; Start 10/08/18 at 09:30 Atorvastatin Calcium (Lipitor) 40 mg HS GTB Last administered on 10/09/18at 21:14; Admin Dose 40 MG; Start 10/08/18 at 21:00 Miscellaneous Information (Pending [facility] Order For Wound Care) This patient an... PRN PRN XX WOUND CARE; Start 10/08/18 at 12:00 Vancomycin HCl 1.25 gm/Sodium Chloride 250 ml @ 83.333 mls/ hr Q36H IVPB Last administered on 10/10/18at 05:26; Admin Dose 83.333 MLS/HR; Start 10/08/18 at 18:00 Heparin Sodium (Porcine) (Heparin (1000 Units/ml)) 7,300 unit PER PROTOCOL PRN IV aPTT<47; Start 10/09/18 at 08:00 Heparin Sodium (Porcine) (Heparin (1000 Units/ml)) 3,600 unit PER PROTOCOL PRN IV aPTT<47-57; Start 10/09/18 at 08:00 Heparin Sodium (Porcine) 250 ml @ 16.4 mls/hr PER PROTOCOL IV Last administered on 10/10/18at 05:38; Admin Dose 12.5 MLS/HR; Start 10/09/18 at 08:30 Dextrose 1,000 ml @ 80 mls/hr [id number] IV Last administered on 10/10/18at 00:12; Admin Dose 80 MLS/HR; Start 10/09/18 at 09:30 Nystatin (Nystatin Powder) 1 applic BID TOP Last administered on 10/09/18at 21:40; Admin Dose 1 APPLIC; Start 10/09/18 at 21:00 Fluconazole 100 ml @ 100 mls/hr Q24H IVPB Last administered on 10/09/18at 12:12; Admin Dose 100 MLS/HR; Start 10/09/18 at 12:30 ANIBAL SHANNON MD Oct 10, 2018 07:35
--- NOTE | 2018-10-10 07:37 | CONS ---
Consult Date/Type/Reason Admit Date/Time Oct 07, 2018 at 18:23 Initial Consult Date 10/08/18 Type of Consultation: cv Requesting Provider: ANGEL PALMA Date/Time of Note DATE: 10/10/18 TIME: 07:22 Subjective Interventional cardiology follow-up progress note/critical care note Subjective: Discussed with the staff and telemetry was reviewed. Patient is in P-Aflutter/ tachy with variable AV block and mostly controlled HR. Patient is less hypotensive and off Levophed drip. He is a still on the vent No active bleeding is reported. Patient has not had any bowel movement Discussed multiple physicians and staff Objective: General: Elderly gentleman status post tracheostomy HEENT: NC/AT. pupils are equal. round. NECK: . no stridor. CV: RRR. systolic murmur; no gallop or rubs. PULM: no wheezing + rhonchi. GI: SOFT, NT, ND, no rebound or guarding . s/p PEG Extremity:+ B/L LE edema. no clubbing. neuro: Opens his eyes and appears to follow basic commands Psych: calm rectal: deferred Chest x-ray done in the ER shows: Mild cardiomegaly with moderate pulmonary vascular congestion. Moderate bilateral pleural effusions, left greater than right. Head CT done in the ER shows: 1. No acute intracranial hemorrhage, transcortical infarction or mass effect. 2. Moderate intracranial atherosclerosis and chronic small vessel ischemic changes. 3. 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 4. Mild to moderate generalized cerebral volume loss. Echocardiogram was personally reviewed that shows: Lower limits of normal systolic function. Normal left ventricular cavity size. Mild concentric left ventricular hypertrophy. Ejection fraction is visually estimated at 50 %. Abnormal Diastolic Function. Moderate enlargement of right ventricle. Mild right ventricular hypokinesis. There is moderate enlargement of right atrium. Mitral valve leaflets appear mildly thickened. Mild mitral annular calcification. Trace mitral regurgitation. No hemodynamically significant aortic stenosis by doppler. Aortic cusps appear mildly calcified. Trace to mild aortic valve regurgitation. Normal appearance of the tricuspid valve. Estimated peak PA systolic pressure 33 mmHg. There is trace tricuspid regurgitation. Objective Vitals Vital Signs Date Temp Pulse Resp B/P (MAP) Pulse Ox O2 O2 Flow FiO2 Time Delivery Rate 10/10/18 77 18 117/70 100 Mechanical 06:00 (86) Ventilator 10/10/18 35 05:10 10/10/18 98.6 04:00 10/07/18 10.0 17:59 Intake and Output 10/09/18 10/09/18 10/10/18 1515:00 23:00 07:00 IntakeIntake Total 864.96 ml 700.5 ml 923.333 ml OutputOutput Total 370 ml 535 ml 500 ml BalanceBalance 494.96 ml 165.5 ml 423.333 ml Results/Medications Result Diagram: 10/10/18 0434 10/10/18 0434 Results 24 hrs Laboratory Tests Test 10/09/18 14:17 10/09/18 16:40 10/09/18 19:13 10/10/18 03:14 Activated > 180.0 *H 165.1 *H 46.4 H 101.8 *H Partial Thrombopl ast Time Test 10/10/18 04:34 10/10/18 05:17 White Blood Count 4.9 # Red Blood Count 3.04 L Hemoglobin 8.1 L Hematocrit 27.6 L Mean Corpuscular 90.8 Volume Mean Corpuscular 26.6 L Hemoglobin Mean Corpuscular 29.3 L Hemoglobin Concen t Red Cell 16.8 H Distribution Width Platelet Count 110 L Mean Platelet 12.7 H Volume Immature 0.400 Granulocytes % Neutrophils % 63.6 Lymphocytes % 16.0 Monocytes % 12.3 H Eosinophils % 7.5 H Basophils % 0.2 Nucleated Red 0.0 Blood Cells % Immature 0.020 Granulocytes # Neutrophils # 3.1 Lymphocytes # 0.8 Monocytes # 0.6 Eosinophils # 0.4 Basophils # 0.0 Nucleated Red 0.0 Blood Cells # Prothrombin Time 16.4 H Prothrombin Time 1.3 Ratio INR International 1.31 Normalized Ratio Sodium Level 147 H Potassium Level 3.9 Chloride Level 104 Carbon Dioxide 33 H Level Anion Gap 10 Blood Urea 79 H Nitrogen Creatinine 1.73 H Est Glomerular Filtrat Rate mL/min Glucose Level 91 Calcium Level 8.6 Magnesium Level 3.2 H Total Bilirubin 0.2 Direct Bilirubin 0.00 Indirect 0.2 Bilirubin Aspartate Amino 272 #H Transf (AST/SGOT) Alanine 141 H Aminotransferase (ALT/SGPT) Alkaline 125 H Phosphatase B-Type 59691 H Natriuretic Peptide Total Protein 7.1 Albumin 3.0 L Globulin 4.10 H Albumin/Globulin 0.73 Ratio Lab Scanned BLOOD TRANSFUSIO Report N Home Meds Reported Medications Levalbuterol Hcl* (Levalbuterol Hcl*) 0.63 Mg/3 Ml Vial.neb, 0.63 MG INHALATION QID PRN for WHEEZING AND SOB, VIAL 10/07/18 Acetaminophen* (Tylenol*) 325 Mg Tablet, 650 MG GTB Q6H PRN for MILD PAIN LEVEL 1-3, TAB FOR TEMP>100.5 10/07/18 Terazosin Hcl* (Terazosin Hcl*) 2 Mg Capsule, 2 MG GTB HS, CAP 10/07/18 Tamsulosin Hcl* (Tamsulosin Hcl*) 0.4 Mg Cap.er.24h, 0.4 MG GTB DAILY, CAP 10/07/18 Sennosides* (Senna Lax*) 8.6 Mg Tablet, 1 TAB GTB QHS, TAB 10/07/18 Hydrocodone/Acetaminophen ([place] 5-325 Tablet) 1 Each Tablet, 1 EACH GTB Q6H, TA B 10/07/18 [Nephro Vitamins ] No Conflict Check, 1 TAB GTB DAILY 10/07/18 Mirtazapine* (Mirtazapine*) 7.5 Mg Tablet, 7.5 MG GTB HS, TAB 10/07/18 Magnesium Hydroxide* (Milk Of Magnesia*) 400 Mg/5 Ml Oral.susp, 30 ML GTB Q24H for CONSTIPATION, ML 10/07/18 Metoprolol Tartrate* (Lopressor*) 25 Mg Tab, 25 MG GTB BID, #60 TAB HOLD FOR SBP<110 OR PULSE<60 10/07/18 Hydralazine Hcl* (Hydralazine Hcl*) 25 Mg Tab, 25 MG GTB Q8, #90 TAB HOLD FOR SBP<110 OR PULSE<60 10/07/18 Hydralazine Hcl* (Hydralazine Hcl*) 10 Mg Tablet, 10 MG GTB Q8 for FOR HTN FOR SBP<159, #90 TAB 10/07/18 Mineral Oil (Fleet Mineral Oil Enema) 133 Ml Enema, 133 ML RC Q 3 DAYS, ENEMA 10/07/18 Epoetin Hemant (Epogen) 10,000 Units/Ml Soln, 24981 UNITS SC Q MON,WED,FRI, VIAL 10/07/18 Bisacodyl* (Bisacodyl*) 10 Mg Supp, 10 MG CO Q24H for CONSTIPATION, SUPP 10/07/18 Docusate Sodium* (Colace*) 100 Mg Capsule, 100 MG GTB BID, #60 CAP 10/07/18 Allopurinol* (Allopurinol*) 300 Mg Tablet, 300 MG GTB DAILY, TAB 10/07/18 Alendronate Sodium* (Fosamax*) 70 Mg Tablet, 70 MG GTB Q SUN, #4 TAB 10/07/18 Acetaminophen* (Acetaminophen*) 325 Mg Tablet, 650 MG GTB DAILY PRN for PAIN AND OR ELEVATED TEMP, #30 TAB 30 MINS BEFORE TREATMENT. 10/07/18 Medications Current Medications IV Flush (NS 3 ml) 3 ml PER PROTOCOL IV ; Start 10/07/18 at 18:30 Ondansetron HCl (Zofran Inj) 4 mg Q6H PRN IV NAUSEA/VOMITING; Start 10/07/18 at 18:30 Acetaminophen (Tylenol Tab) 650 mg Q6H PRN PO .PAIN 1-3 OR TEMP; Start 10/07/18 at 18:30 Acetaminophen/ Hydrocodone Bitart ([place] (5/325)) 1 tab Q6H PRN PO .MOD PAIN 4- 6; Start 10/07/18 at 18:30 Morphine Sulfate (morphine) 2 mg Q4H PRN IV .SEVERE PAIN 7-10; Start 10/07/18 at 18:30 Docusate Sodium (Colace) 100 mg Q12H PRN PO .CONSTIPATION; Start 10/07/18 at 18:30 Magnesium Hydroxide (Milk Of Mag) 30 ml DAILY PRN PO .CONSTIPATION; Start 10/07/18 at 18:30 Famotidine (Pepcid Iv) 20 mg HS IV Last administered on 10/09/18at 21:14; Admin Dose 20 MG; Start 10/07/18 at 21:00 Lorazepam (Ativan) 0.5 mg Q6H PRN IV ANXIETY; Start 10/07/18 at 18:30 Piperacillin Sod/ Tazobactam Sod 100 ml @ 200 mls/hr Q6 IVPB Last administered on 10/10/18at 05:26; Admin Dose 200 MLS/HR; Start 10/08/18 at 00:00 Vancomycin HCl (Vanco Iv Per Pharmacy) VANCOMYCIN PER PHARMACY NOTE XX ; Start 10/07/18 at 18:30 Hydralazine HCl (Apresoline) 10 mg Q6H PRN IV ELEVATED BLOOD PRESSURE; Start 10/07/18 at 18:30 Nitroglycerin (Nitroglycerin (Sl Tab) 0.4 Mg) 1 tab Q5M PRN SL ANGINA; Start 10/07/18 at 18:30 Levalbuterol (Xopenex Neb) 0.63 mg QID RESP THERAPY PRN INH WHEEZING AND SOB; Start 10/07/18 at 18:30 Magnesium Hydroxide (Milk Of Mag) 30 ml Q24H GTB Last administered on 10/09/18at 17:27; Admin Dose 30 ML; Start 10/07/18 at 18:30 Norepinephrine 32 mg/Dextrose 250 ml @ 0.47 mls/hr TITRATE IV Last admini stered on 10/07/18at 21:19; Admin Dose 9.38 MLS/HR; Start 10/07/18 at 18:30 Epoetin Hemant (Epogen (Esrd)) 10,000 units TuThSa@17 SC Last administered on 10/08/18at 16:17; Admin Dose 10,000 UNITS; Start 10/08/18 at 17:00 Aspirin (Aspirin) 81 mg DAILY GTB Last administered on 10/09/18at 08:17; Admin Dose 81 MG; Start 10/08/18 at 09:30 Atorvastatin Calcium (Lipitor) 40 mg HS GTB Last administered on 10/09/18at 21:14; Admin Dose 40 MG; Start 10/08/18 at 21:00 [facility] This patient an... PRN PRN XX WOUND CARE; Start 10/08/18 at 12:00 Vancomycin HCl 1.25 gm/Sodium Chloride 250 ml @ 83.333 mls/ hr Q36H IVPB Last administered on 10/10/18at 05:26; Admin Dose 83.333 MLS/HR; Start 10/08/18 at 18:00 Heparin Sodium (Porcine) (Heparin (1000 Units/ml)) 7,300 unit PER PROTOCOL PRN IV aPTT<47; Start 10/09/18 at 08:00 Heparin Sodium (Porcine) (Heparin (1000 Units/ml)) 3,600 unit PER PROTOCOL PRN IV aPTT<47-57; Start 10/09/18 at 08:00 Heparin Sodium (Porcine) 250 ml @ 16.4 mls/hr PER PROTOCOL IV Last administered on 10/10/18 05:38; Admin Dose 12.5 MLS/HR; Start 10/09/18 at 08:30 Dextrose 1,000 ml @ 80 mls/hr [id number] IV Last administered on 10/10/18 00:12; Admin Dose 80 MLS/HR; Start 10/09/18 at 09:30 Nystatin (Nystatin Powder) 1 applic BID TOP Last administered on 10/09/18 21:40; Admin Dose 1 APPLIC; Start 10/09/18 at 21:00 Fluconazole 100 ml @ 100 mls/hr Q24H IVPB Last administered on 10/09/18 12:12; Admin Dose 100 MLS/HR; Start 10/09/18 at 12:30 Assessment/Plan Hospital Course (Demo Recall) Non-ST elevation myocardial infarction Lower extremity DVT on most likely PE given dilated right ventricle Shock : septic Sepsis and bacteremia Hypoxemic respiratory failure with tracheostomy vent dependent Reported history of congestive heart failure Reported history of possible cardiopulmonary arrest Severe anemia Encephalopathy /altered level of consciousness Dysphagia status post PEG placement History of bladder cancer Acute renal failure P afib/ flutter Recommendations: cont patient on heparin drip for now given his DVT and likely PE as long as no active bleeding is noted. We will monitor for any sign of bleeding. So far no active bleeding is noted Continue with the Levophed as needed to titrate blood pressure. We will try to titrate off if blood pressure remains stable Vent support will be managed as per pulmonary Continue statins Beta-rachael to be started once blood pressure is stable Follow-up with renal recommendations For now we will hold off on any aggressive procedures such as coronary angiogram given his multiple comorbidities awaiting transfer to [place] for insurance reasons Continue with ICU care More than 35 minutes of critical care time was for management treatment of this critically ill patient excluding any procedures Thank you for his referral. We will continue to follow along with you KAILEE GILLIAM MD [facility] KAILEE GILLIAM MD Oct 10, 2018 07:35
--- NOTE | 2018-10-10 09:35 | CONS ---
Assessment/Plan Assessment/Plan Assessment/Plan (Daily) Chest x-ray was reviewed from today which is showing continued improvement in bilateral pneumonia. Ventilator setting; AC of 12, tidal volume 500, PEEP of 5, 35% FiO2. Patient is currently on IV heparin via protocol Assessment recommendations; 1. Patient with history of VDR F admitted for severe bilateral pneumonia with severe hypotension with marked overall clinical improvement 2. Mild chronic renal insufficiency. 3. Acute encephalopathy with interval resolution. 4. Prior history of cardiac arrest and CPR. 5. Stage II sacral ulcer. 6. History of gout. 7. CHF. 8. MRSA bacteremia. 9. Candiduria. 10. Anemia and thrombocytopenia. 11. Lower extremity DVT. 12. Interval resolution of hypotension. Continue current supportive care. Patient responding well to current treatment regimen. Consider transfer to telemetry unit. Obtain follow-up chest x-ray in 48 hours. 35 minutes of critical care time was spent evaluating the patient. Consultation Date/Type/Reason Admit Date/Time Oct 07, 2018 at 18:23 Initial Consult Date 10/08/18 Type of Consult Pulmonary/critical care Pulmonary consult requested for evaluation of chronic respiratory failure, patient admitted for sepsis. Patient is a 88-year-old male transferred from custodial with apparently altered mental status. Upon further evaluation patient was found to be severely septic as well as hypotensive. Patient also has significant elevation in troponins. Patient apparently has history of advanced dementia and was himself unable to give any history whatsoever. But according to medical record patient at the nursing facility was able to have pured diet and was somewhat communicative. By the time I saw the patient, patient is on ventilator via tracheostomy and is unresponsive. Patient however did not appear to be in any distress. Past medical history; 1. VDR F 2. History of bladder cancer. 3. Likely chronic renal insufficiency. 4. History of bullous pemphigoid. 5. Likely chronic type II respiratory failure. 6. History of cardiac arrest status post CPR in the past. 7. Gout 8. Status post tracheostomy and G-tube. Medications; reviewed. Allergies; shellfish. Family history, social history, occupational history is not available. Review of system; unable to be obtained. General exam; elderly male, on ventilator via tracheostomy, unresponsive, currently in no distress. Requesting Provider: ANGEL PALMA Date/Time of Note DATE: 10/10/18 TIME: 09:32 24 HR Interval Summary Free Text/Dictation Patient's condition is improving. Patient has improved hemodynamically and is now off pressor support. General exam; elderly male, on ventilator via tracheostomy, awake and appropriately responsive. Currently in no distress. Exam/Review of Systems Exam Vitals Vital Signs Date Temp Pulse Resp B/P (MAP) Pulse Ox O2 O2 Flow FiO2 Time Delivery Rate 10/10/18 77 20 100 08:15 10/10/18 97.4 07:40 10/10/18 109/77 07:00 (88) 10/10/18 Mechanical 06:00 Ventilator 10/10/18 35 05:10 10/07/18 10.0 17:59 Intake and Output 10/09/18 10/09/18 10/10/18 1515:00 23:00 07:00 IntakeIntake Total 864.96 ml 700.5 ml 923.333 ml OutputOutput Total 370 ml 535 ml 500 ml BalanceBalance 494.96 ml 165.5 ml 423.333 ml Exam HEENT exam; supple neck, positive JVD. No lymphadenopathy. Midline trachea. N o thyromegaly. Tracheostomy in place. Patient has fair dentition. No neck masses. Chest exam; diminished but clear breath sounds. S1-S2 audible, no murmurs. Regular rhythm. Abdomen exam; soft, no organomegaly. G-tube in place. Nondistended tender. Bowel sounds audible. Extremity exam; trace edema lower extremities bilaterally. Pulses 1+. 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 Results Result Diagram: 10/10/18 0434 10/10/18 0434 Results 24hrs Laboratory Tests Test 10/09/18 14:17 10/09/18 16:40 10/09/18 19:13 10/10/18 03:14 Activated > 180.0 *H 165.1 *H 46.4 H 101.8 *H Partial Thrombopl ast Time Test 10/10/18 04:34 10/10/18 05:17 White Blood Count 4.9 # Red Blood Count 3.04 L Hemoglobin 8.1 L Hematocrit 27.6 L Mean Corpuscular 90.8 Volume Mean Corpuscular 26.6 L Hemoglobin Mean Corpuscular 29.3 L Hemoglobin Concen t Red Cell 16.8 H Distribution Width Platelet Count 110 L Mean Platelet 12.7 H Volume Immature 0.400 Granulocytes % Neutrophils % 63.6 Lymphocytes % 16.0 Monocytes % 12.3 H Eosinophils % 7.5 H Basophils % 0.2 Nucleated Red 0.0 Blood Cells % Immature 0.020 Granulocytes # Neutrophils # 3.1 Lymphocytes # 0.8 Monocytes # 0.6 Eosinophils # 0.4 Basophils # 0.0 Nucleated Red 0.0 Blood Cells # Prothrombin Time 16.4 H Prothrombin Time 1.3 Ratio INR International 1.31 Normalized Ratio Sodium Level 147 H Potassium Level 3.9 Chloride Level 104 Carbon Dioxide 33 H Level Anion Gap 10 Blood Urea 79 H Nitrogen Creatinine 1.73 H Est Glomerular Filtrat Rate mL/min Glucose Level 91 Calcium Level 8.6 Magnesium Level 3.2 H Total Bilirubin 0.2 Direct Bilirubin 0.00 Indirect 0.2 Bilirubin Aspartate Amino 272 #H Transf (AST/SGOT) Alanine 141 H Aminotransferase (ALT/SGPT) Alkaline 125 H Phosphatase B-Type 07504 H Natriuretic Peptide Total Protein 7.1 Albumin 3.0 L Globulin 4.10 H Albumin/Globulin 0.73 Ratio Lab Scanned BLOOD TRANSFUSIO Report N Medications Medication Current Medications IV Flush (NS 3 ml) 3 ml PER PROTOCOL IV ; Start 10/07/18 at 18:30 Ondansetron HCl (Zofran Inj) 4 mg Q6H PRN IV NAUSEA/VOMITING; Start 10/07/18 at 18:30 Acetaminophen (Tylenol Tab) 650 mg Q6H PRN PO .PAIN 1-3 OR TEMP; Start 10/07/18 at 18:30 Acetaminophen/ Hydrocodone Bitart ([place] (5/325)) 1 tab Q6H PRN PO .MOD PAIN 4- 6; Start 10/07/18 at 18:30 Morphine Sulfate (morphine) 2 mg Q4H PRN IV .SEVERE PAIN 7-10; Start 10/07/18 at 18:30 Docusate Sodium (Colace) 100 mg Q12H PRN PO .CONSTIPATION; Start 10/07/18 at 18:30 Magnesium Hydroxide (Milk Of Mag) 30 ml DAILY PRN PO .CONSTIPATION; Start 10/07/18 at 18:30 Famotidine (Pepcid Iv) 20 mg HS IV Last administered on 10/09/18at 21:14; Admin Dose 20 MG; Start 10/07/18 at 21:00 Lorazepam (Ativan) 0.5 mg Q6H PRN IV ANXIETY; Start 10/07/18 at 18:30 Piperacillin Sod/ Tazobactam Sod 100 ml @ 200 mls/hr Q6 IVPB Last administered on 10/10/18at 05:26; Admin Dose 200 MLS/HR; Start 10/08/18 at 00:00 Vancomycin HCl (Vanco Iv Per Pharmacy) VANCOMYCIN PER PHARMACY NOTE XX ; Start 10/07/18 at 18:30 Hydralazine HCl (Apresoline) 10 mg Q6H PRN IV ELEVATED BLOOD PRESSURE; Start 10/07/18 at 18:30 Nitroglycerin (Nitroglycerin (Sl Tab) 0.4 Mg) 1 tab Q5M PRN SL ANGINA; Start 10/07/18 at 18:30 Levalbuterol (Xopenex Neb) 0.63 mg QID RESP THERAPY PRN INH WHEEZING AND SOB; Start 10/07/18 at 18:30 Magnesium Hydroxide (Milk Of Mag) 30 ml Q24H GTB Last administered on 10/09/18at 17:27; Admin Dose 30 ML; Start 10/07/18 at 18:30 Norepinephrine 32 mg/Dextrose 250 ml @ 0.47 mls/hr TITRATE IV Last admi nistered on 10/07/18at 21:19; Admin Dose 9.38 MLS/HR; Start 10/07/18 at 18:30 Epoetin Hemant (Epogen (Esrd)) 10,000 units TuThSa@17 SC Last administered on 10/08/18at 16:17; Admin Dose 10,000 UNITS; Start 10/08/18 at 17:00 Aspirin (Aspirin) 81 mg DAILY GTB Last administered on 10/09/18at 08:17; Admin D ose 81 MG; Start 10/08/18 at 09:30 Atorvastatin Calcium (Lipitor) 40 mg HS GTB Last administered on 10/09/18at 21:14; Admin Dose 40 MG; Start 10/08/18 at 21:00 Miscellaneous Information (Pending [facility] Order For Wound Care) This patient an... PRN PRN XX WOUND CARE; Start 10/08/18 at 12:00 Vancomycin HCl 1.25 gm/Sodium Chloride 250 ml @ 83.333 mls/ hr Q36H IVPB Last administered on 10/10/18 05:26; Admin Dose 83.333 MLS/HR; Start 10/08/18 at 18:00 Heparin Sodium (Porcine) (Heparin (1000 Units/ml)) 7,300 unit PER PROTOCOL PRN IV aPTT<47; Start 10/09/18 at 08:00 Heparin Sodium (Porcine) (Heparin (1000 Units/ml)) 3,600 unit PER PROTOCOL PRN IV aPTT<47-57; Start 10/09/18 at 08:00 Heparin Sodium (Porcine) 250 ml @ 16.4 mls/hr PER PROTOCOL IV Last administered on 10/10/18 05:38; Admin Dose 12.5 MLS/HR; Start 10/09/18 at 08:30 Dextrose 1,000 ml @ 125 mls/hr Q8H IV Last administered on 10/10/18 00:12; Admin Dose 80 MLS/HR; Start 10/09/18 at 09:30 Nystatin (Nystatin Powder) 1 applic BID TOP Last administered on 10/09/18 21:40; Admin Dose 1 APPLIC; Start 10/09/18 at 21:00 Fluconazole 100 ml @ 100 mls/hr Q24H IVPB Last administered on 10/09/18 12:12; Admin Dose 100 MLS/HR; Start 10/09/18 at 12:30 MIGUEL MYLES Oct 10, 2018 09:35
--- NOTE | 2018-10-10 09:59 | DS ---
Date/Time of Note Date/Time of Note DATE: 10/10/18 TIME: 09:55 Discharge Summary Admission/Discharge Info Admit Date/Time Oct 07, 2018 at 18:23 Discharge Date/Time Discharge Diagnosis 1. Septic shock- again likely secondary to Jeannie urinary tract infection and staph bacteremia - patient also has superficial stage II sacral ulcer; blood culture positive for MRSA, off pressor support now 2. Respiratory distress again with hypoxia- history of tracheostomy placement in the past. Signs of likely pneumonia presently. 3. Elevated troponins -signs of non-ST elevation PR -medical management on heparin drip 4. Renal insufficiency-slowly improving, patient presented with BUN is elevated at 84, creatinine is 1.46, which according to renal team is above his baseline. Symptoms likely secondary to sepsis and hypotension. 5. History of prior cardiac arrest. Continue to monitor for now. Follow cardiology recommendations. 6. History of pressure [id number] recommendations from wound care nurse consult. 7. History of gout. Continue to monitor for now. 8. History of dysphagia--Continue G-tube feeds as tolerated. 9. History of congestive heart failure-again, follow-up results of echocardiogram, cardiology consult recommendations 10. History of prostate and bladder cancer. Monitor for now. 11. DVT - involving the left mid and distal femoral veins and left popliteal vein. Patient Condition: Stable Hx of Present Illness 88-year-old male with past medical history based on records of prior cardiac arrest, chronic respiratory failure with tracheostomy placement in the past, CHF, pressure ulcer, hypertension, dysphagia, bullous pemphigoid, gout, prostate cancer, bladder cancer, history of G-tube placement. Most of the information is obtained from the ER documentation as the patient is unable to provide full HPI at this time. When the patient arrived, he was found to be hypoxic and had altered level of consciousness. The symptoms apparently occurred about 1 hour prior to arrival. When he arrived, he was found hemoglobin of 7.2. His lactic acid was elevated at 6.6. He also had elevated troponin of 0.251, also creatinine of 1.46 elevation and he was hypotensive and signs of septic shock likely secondary to UTI as his UA was positive as well for infection and he also has moderate pulmonary vascular congestion, cannot rule out upper respiratory infection as well and patient was given broad spectrum antibiotics and was started on Levophed in the ER that he is presently on. Full review of systems cannot be obtained at this time. Hospital Course Patient was admitted to intensive care unit. Seen by cardiology, renal, pulmonary teams during this hospital stay. Patient placed on pressor support. Patient found with non-ST elevation PR and anemia. Patient received blood transfusion first, then the next day start on heparin drip. This was also because the patient was found with DVT - involving the left mid and distal femoral veins and left popliteal vein. Stool occult test was ordered and is results still pending. Regarding the patient septic shock, patient found with Jeannie UTI and staph aureus bacteremia 2 out of 2 bottles, both the likely source of his septic shock. Patient placed on appropriate antibiotics and antifungal medications for this. Patient also treated for renal insufficiency and these symptoms likely secondary to sepsis and hypotension. Patient seen by renal team for that and treated medically. Patient seen by wound nurse for the ulcer found, and continued on tube feeding via PEG with the patient only has been placed. Patient also continued on mechanical ventilation via tracheostomy which the patient has already had in place before admission. Patient was taken off pressor support on October 09, 2018 has remained off as of this time. Patient is still on heparin drip. Again, patient is getting antifungal medication as well as antibacterial medications. Because of the patient's insurance, he will be transferred to appropriate hospital contracted with his insurance later today. see printed medical reconciliation sheet for full list of discharge medications. Home Meds Reported Medications Levalbuterol Hcl* (Levalbuterol Hcl*) 0.63 Mg/3 Ml Vial.neb, 0.63 MG INHALATION QID PRN for WHEEZING AND SOB, VIAL 10/07/18 Acetaminophen* (Tylenol*) 325 Mg Tablet, 650 MG GTB Q6H PRN for MILD PAIN LEVEL 1-3, TAB FOR TEMP>100.5 10/07/18 Terazosin Hcl* (Terazosin Hcl*) 2 Mg Capsule, 2 MG GTB HS, CAP 10/07/18 Tamsulosin Hcl* (Tamsulosin Hcl*) 0.4 Mg Cap.er.24h, 0.4 MG GTB DAILY, CAP 10/07/18 Sennosides* (Senna Lax*) 8.6 Mg Tablet, 1 TAB GTB QHS, TAB 10/07/18 Hydrocodone/Acetaminophen ([place] 5-325 Tablet) 1 Each Tablet, 1 EACH GTB Q6H, TAB 10/07/18 [Nephro Vitamins ] No Conflict Check, 1 TAB GTB DAILY 10/07/18 Mirtazapine* (Mirtazapine*) 7.5 Mg Tablet, 7.5 MG GTB HS, TAB 10/07/18 Magnesium Hydroxide* (Milk Of Magnesia*) 400 Mg/5 Ml Oral.susp, 30 ML GTB Q24H for CONSTIPATION, ML 10/07/18 Metoprolol Tartrate* (Lopressor*) 25 Mg Tab, 25 MG GTB BID, #60 TAB HOLD FOR SBP<110 OR PULSE<60 10/07/18 Hydralazine Hcl* (Hydralazine Hcl*) 25 Mg Tab, 25 MG GTB Q8, #90 TAB HOLD FOR SBP<110 OR PULSE<60 10/07/18 Hydralazine Hcl* (Hydralazine Hcl*) 10 Mg Tablet, 10 MG GTB Q8 for FOR HTN FOR SBP<159, #90 TAB 10/07/18 Mineral Oil (Fleet Mineral Oil Enema) 133 Ml Enema, 133 ML RC Q 3 DAYS, ENEMA 10/07/18 Epoetin Hemant (Epogen) 10,000 Units/Ml Soln, 62821 UNITS SC Q MON,WED,FRI, VIAL 10/07/18 Bisacodyl* (Bisacodyl*) 10 Mg Supp, 10 MG RI Q24H for CONSTIPATION, SUPP 10/07/18 Docusate Sodium* (Colace*) 100 Mg Capsule, 100 MG GTB BID, #60 CAP 10/07/18 Allopurinol* (Allopurinol*) 300 Mg Tablet, 300 MG GTB DAILY, TAB 10/07/18 Alendronate Sodium* (Fosamax*) 70 Mg Tablet, 70 MG GTB Q SUN, #4 TAB 10/07/18 Acetaminophen* (Acetaminophen*) 325 Mg Tablet, 650 MG GTB DAILY PRN for PAIN AND OR ELEVATED TEMP, #30 TAB 30 MINS BEFORE TREATMENT. 10/07/18 Primary Care Provider Care Physician No Primary Time spent on discharge: > 30 minutes Pending Labs Laboratory Tests Test 10/09/18 14:17 10/09/18 16:40 10/09/18 19:13 10/10/18 03:14 Activated > 180.0 165.1 46.4 101.8 Partial Thrombo Sec (23.0-35.0) Sec (23.0-35.0 Sec (23.0-35.0 Sec (23.0-35.0 plast Time ) ) ) Test 10/10/18 04:34 10/10/18 05:17 White Blood 4.9 Count 10^3/ul (4.8-10 .8) Red Blood 3.04 Count 10^6/ul (4.70-6 .10) Hemoglobin 8.1 g/dl (14.0-18.0 ) Hematocrit 27.6 % (42.0-52.0) Mean 90.8 Corpuscular fl (82.0-101.0) Volume Mean 26.6 Corpuscular pg (29.0-33.0) Hemoglobin Mean 29.3 Corpuscular g/dl (32.0-37.0 Hemoglobin Conc ) ent Red Cell 16.8 Distribution % (11.5-14.5) Width Platelet Count 110 10^3/UL (140-41 5) Mean Platelet 12.7 Volume fl (7.4-10.4) Immature 0.400 Granulocytes % % (0.001-0.429) Neutrophils % 63.6 % (39.0-77.0) Lymphocytes % 16.0 % (15.0-51.0) Monocytes % 12.3 % (0.0-11.0) Eosinophils % 7.5 % (0.0-7.0) Basophils % 0.2 % (0.0-2.0) Nucleated Red 0.0 Blood Cells % /100WBC (0.0-0. 0) Immature 0.020 Granulocytes # 10^3/ul (0.0-0. 031) Neutrophils # 3.1 10^3/ul (1.6-7. 5) Lymphocytes # 0.8 10^3/ul (0.8-2. 9) Monocytes # 0.6 10^3/ul (0.3-0. 9) Eosinophils # 0.4 10^3/ul (0.0-0. 5) Basophils # 0.0 10^3/ul (0.0-0. 1) Nucleated Red 0.0 Blood Cells # 10^3/ul (0.0-0. 0) Prothrombin 16.4 Time Sec (11.9-14.9) Prothrombin 1.3 Time Ratio INR 1.31 International Normalized Rati o Sodium Level 147 mmol/L (135-144 ) Potassium 3.9 Level mmol/L (3.5-5.1 ) Chloride Level 104 mmol/L (97-110) Carbon Dioxide 33 Level mmol/L (21-31) Anion Gap 10 (5-13) Blood Urea 79 mg/dl (7-20) Nitrogen Creatinine 1.73 mg/dl (0.61-1.2 4) Est Glomerular mL/min (>60) Filtrat Rate mL/min Glucose Level 91 mg/dl (70-220) Calcium Level 8.6 mg/dl (8.4-10.2 ) Magnesium 3.2 Level mg/dl (1.7-2.5) Total 0.2 Bilirubin mg/dl (0.2-1.3) Direct 0.00 Bilirubin mg/dl (0.00-0.2 0) Indirect 0.2 Bilirubin mg/dl (0-1.1) Aspartate Amino 272 Transf (AST/SGO IU/L (15-46) T) Alanine 141 Aminotransferas IU/L (13-69) e (ALT/SGPT) Alkaline 125 Phosphatase IU/L (42-121) B-Type 33460 Natriuretic PG/ML (0-450) Peptide Total Protein 7.1 g/dl (6.1-8.1) Albumin 3.0 g/dl (3.3-4.9) Globulin 4.10 g/dl (1.3-3.2) Albumin/Globuli 0.73 n Ratio Lab Scanned BLOOD TRANSFUS Report ANGEL RABAGO Oct 10, 2018 09:58
[2018-10-10] MEDS: ASPIRIN 81 MG TAB GTB SCH (10:38)
[2018-10-10] MEDS: NYSTATIN 30 GM POWDER BTL TOP SCH (10:39)
[2018-10-10] MEDS: FLUCONAZOLE 200 MG (PMX) 100 ML IVPB SCH (13:24)
[2018-10-10] MEDS: EPOETIN 10000 UNITS/1 ML INJ (ESRD) SC SCH (17:35)
== END 2018-10-10 18:28 | disposition short-term general hospital (02) | DRG 871 ==
LOC: E/R 14:02 → ICU 18:23
PROVIDERS: ADMIT Hospitalist; ATTEND Hospitalist
PROC: 06HY33Z Insertion of Infusion Device into Lower Vein, Percutaneous Approach (ICD-10-PCS; principal; 2018-10-07)
PROC: 5A1945Z Respiratory Ventilation, 24-96 Consecutive Hours (ICD-10-PCS; 2018-10-07)
PROC: 30233N1 Transfusion of Nonautologous Red Blood Cells into Peripheral Vein, Percutaneous Approach (ICD-10-PCS; 2018-10-08)
DX: A41.9 Sepsis, unspecified organism (principal); R65.21 Severe sepsis with septic shock; I21.4 Non-ST elevation (NSTEMI) myocardial infarction; J18.9 Pneumonia, unspecified organism; J96.21 Acute and chronic respiratory failure with hypoxia; G93.40 Encephalopathy, unspecified; I13.0 Hypertensive heart and chronic kidney disease with heart failure and stage 1 through stage 4 chronic kidney disease, or unspecified chronic kidney disease; B37.49 Other urogenital candidiasis; I82.412 Acute embolism and thrombosis of left femoral vein; I82.432 Acute embolism and thrombosis of left popliteal vein; D69.6 Thrombocytopenia, unspecified; Z93.1 Gastrostomy status; N18.9 Chronic kidney disease, unspecified; D64.9 Anemia, unspecified; M10.9 Gout, unspecified; L89.152 Pressure ulcer of sacral region, stage 2; R13.10 Dysphagia, unspecified; I50.9 Heart failure, unspecified; Z93.0 Tracheostomy status; Z86.74 Personal history of sudden cardiac arrest; Z85.46 Personal history of malignant neoplasm of prostate; Z85.51 Personal history of malignant neoplasm of bladder
CPT/HCPCS: 36415; 36430; 36600; 70450; 71045; 74018; 76700; 76775; 76937; 80048; 80053; 80061; 81001; 81003; 82550; 82553; 82570; 82728; 82803; 83036; 83540; 83605; 83735; 83880; 84100; 84300; 84439; 84443; 84484; 85014; 85018; 85025; 85610; 85730; 86850; 86900; 86901; 86920; 87040; 87081; 87086; 92610; 93005; 93306; 93970; 94002; 94003; 96365; 96366; 96375; J1644; J1940; J2543; J3370; J3480; J7040; J7050; J7070; P9016; Q4081